=== PATIENT | male | born 1980 | race Caucasian/White ===

== ENCOUNTER 2016-06-18 07:45 | Emergency (ER) | payer MEDICARE, MEDICAID ==
[~2016-06-18 07:45] MED LIST: ADDE30CA PO; AMBI10TA PO; CLEO150C PO; CLON1TAB PO; FLUO40CA PO; GEOD40CA2 PO; GEOD60CA PO; KEFL500C7 PO; KLON2TAB PO; OMEP40CA2 PO; PERC5TAB6 PO; PRAZ2CAP PO; RISATAB3 PO; SERO200T PO; TEST1INJ3 IM; TRAZ150T14 PO; ULTR50TA PO
--- NOTE | 2016-06-18 08:15 | EDDOCDS ---
Physician Documentation [facility] Name: Wily Dyson Age: 35 yrs Sex: Male : 1980 Arrival Date: 06/18/2016 Time: 07:45 Bed I4 / M4 Private MD: Joseph Rodriguez [facility] Disposition: 06/18/16 08:08 Discharged to Home/Self Care. Impression: Unspecified sprain of right shoulder joint. - Condition is Stable. - Discharge Instructions: Shoulder Sprain. - Prescriptions for Hydrocodone- Acetaminophen 5-325 mg Oral Tablet - take 1 tablet by ORAL route every 6 hours As needed MDD: 4 tabs; 16 tablet. - Local Pharmacy Hours, Medication Reconciliation form. - Follow up: Emergency Department; When: As needed; Reason: Worsening of conditions. Follow up: Joseph Rodriguez; When: Call to arrange an appointment; Reason: Wound/Symptom Recheck, Recheck today's complaints, Worsening of conditions, Continuance of care. - Problem is an ongoing problem. - Symptoms are unchanged. Historical: - Allergies: No known drug Allergies; - Home Meds: 1. Adderall XR 30 mg Oral cp24 2 cap once daily 2. Depo-Testosterone 200 mg/mL IM oil weekly on Tuesdays 3. Geodon 60 mg Oral cap 1 cap 2 times per day 4. ibuprofen 800 mg oral tab as needed (Last dose: 06/17/2016) 5. Klonopin 1 mg Oral tab 3 times per day 6. prazosin 2 mg Oral cap 1 cap nightly 7. Prilosec 40 mg Oral cpDR 1 cap once daily 8. Prozac 20 mg Oral cap 1 cap once daily 9. tramadol 50 mg Oral Tb24 2 caps three times a day (Last dose: 06/17/2016) 10. trazodone 150 mg Oral Tb24 1 tab nightly - PMHx: ADHD; Anxiety; Bipolar disorder; gender dysforia; GERD; PTSD; - PSHx: Carpal Tunnel Repair- Right; Tubal ligation; Hysterectomy; bilateral mastectomy; - Social history: Smoking status: Patient uses tobacco products, light tobacco smoker. No barriers to communication noted, The patient speaks fluent Palestinian, Speaks appropriately for age. - Family history: Not pertinent. - : The pt / caregiver states he / she is not on anticoagulants. Home medication list is obtained from [employer] import data. - Exposure Risk Screening:: None identified. Vital Signs: 06/18 07:56 BP 131 / 66; Pulse 72; Resp 18; Temp 98.1(TE); Pulse Ox 97% on R/A; Weight 86.18 kg / ck1 189.99 lbs (R); Height 5 ft. 8 in. (172.72 cm) (R); Pain 7/10; 07:56 Body Mass Index 28.89 (86.18 kg, 172.72 cm) ck1 Signatures: Mechelle OneillRN RN ck1 Chan Chong, PA-C PA-C cc10 The chart was reviewed and I authenticate all verbal orders and agree with the evaluation and treatment provided.Corrections: (The following items were deleted from the chart) 08: 07:55 PSHx: removal of breasts; ck1 ck1 MTDD
--- NOTE | 2016-06-18 08:15 | EDDOCDS ---
Nurse's Notes [facility] Name: Wily Dyson Age: 35 yrs Sex: Male : 1980 Arrival Date: 06/18/2016 Time: 07:45 Bed I4 / M4 Private MD: Joseph Rodriguez NCFM Diagnosis: Unspecified sprain of right shoulder joint Presentation: 06/18 07:52 Presenting complaint: Patient states: worsening right shoulder pain for a week. No ck1 known injury, "possibly from shoveling". Adult Sepsis Screening: The patient does not have new or worsening altered mentation. Patient's respiratory rate is less than 22. Systolic blood pressure is greater than 100. Patient has a qSOFA score of 0- Negative Sepsis Screen. Suicide/Homicide risk assessment- the patient denies having any suicidal and/or homicidal ideations and does not present with any other emotional, behavioral or mental health complaints. Status: Patient is not a manager of allied health services or dependent. Transition of care: patient was not received from another setting of care. 07:52 Acuity: YAJAIRA Level 4 ck1 07:52 Method Of Arrival: Walkin/Carried/Asstd ck1 Triage Assessment: 07:56 General: Appears in no apparent distress, comfortable, Behavior is appropriate for age, ck1 cooperative. Pain: Location: right shoulder Pain currently is 7 out of 10 on a pain scale. HIV screening NA for this visit Offered previously. Derm: No deficits noted. Musculoskeletal: Circulation, motion, and sensation intact Range of motion intact in all extremities. Historical: - Allergies: No known drug Allergies; - Home Meds: 1. Adderall XR 30 mg Oral cp24 2 cap once daily 2. Depo-Testosterone 200 mg/mL IM oil weekly on Tuesdays 3. Geodon 60 mg Oral cap 1 cap 2 times per day 4. ibuprofen 800 mg oral tab as needed (Last dose: 06/17/2016) 5. Klonopin 1 mg Oral tab 3 times per day 6. prazosin 2 mg Oral cap 1 cap nightly 7. Prilosec 40 mg Oral cpDR 1 cap once daily 8. Prozac 20 mg Oral cap 1 cap once daily 9. tramadol 50 mg Oral Tb24 2 caps three times a day (Last dose: 06/17/2016) 10. trazodone 150 mg Oral Tb24 1 tab nightly - PMHx: ADHD; Anxiety; Bipolar disorder; gender dysforia; GERD; PTSD; - PSHx: Carpal Tunnel Repair- Right; Tubal ligation; Hysterectomy; bilateral mastectomy; - Social history: Smoking status: Patient uses tobacco products, light tobacco smoker. No barriers to communication noted, The patient speaks fluent Egyptian, Speaks appropriately for age. - Family history: Not pertinent. - : The pt / caregiver states he / she is not on anticoagulants. Home medication list is obtained from [employer] import data. - Exposure Risk Screening:: None identified. Screenin:10 Screening information is obtained from the patient. Fall risk: No risks identified. ck1 Assistance ADL's: requires no assistance with activities of daily living. Abuse/DV Screen: The patient / caregiver reports he/she is: not in a situation that causes fear, pain or injury. Nutritional screening: No deficits noted. Advance Directives: Currently, there is no health care proxy. home support is adequate. Assessment: 08:10 General: Appears in no apparent distress, comfortable, Behavior is appropriate for age, ck1 cooperative. Pain: Location: right shoulder Pain currently is 7 out of 10 on a pain scale. Neurological: No deficits noted. Derm: Skin is intact, is healthy with good turgor, Skin is pink, warm & dry. Musculoskeletal: Circulation, motion, and sensation intact Range of motion intact in all extremities. Vital Signs: 07:56 BP 131 / 66; Pulse 72; Resp 18; Temp 98.1(TE); Pulse Ox 97% on R/A; Weight 86.18 kg ck1 (R); Height 5 ft. 8 in. (172.72 cm) (R); Pain 7/10; 07:56 Body Mass Index 28.89 (86.18 kg, 172.72 cm) ck1 Vitals: 07:56 Log In Time: June 18, 2016 at 07:40. ck1 ED Course: 07:46 Patient visited by Mahad Cortes. mm15 07:46 Joseph Rodriguez is Private Physician. mm15 07:46 Patient moved to Waiting mm15 07:53 Triage Initiated ck1 07:57 Patient moved to I4 / M4 ck1 08:02 Chan Ch[facility] cc10 08:02 Cira Ulloa MD is Attending Physician. cc10 08:02 Patient visited by Chan Chong PA-C. cc10 08:02 Patient visited by Chan Chong PA-C. cc10 08:08 Joseph Rodriguez is Referral Physician. cc10 08:10 The patient / caregiver is instructed regarding the plan of care and ED course. ck1 08:10 No IV's were initiated during this patient's visit. No procedures done that require ck1 assistance. Order Results: There are currently no results for this order. Outcome: 08:08 Discharge ordered by Provider. cc10 08:10 Discharge Assessment: Patient awake, alert and oriented x 3. No cognitive and/or ck1 functional deficits noted. Patient verbalized understanding of disposition instructions. patient administered narcotics - no. The following High Risk Discharge criteria are identified: None. Discharged to home ambulatory. Condition: stable. Discharge instructions given to patient, Instructed on discharge instructions, follow up and referral plans. medication usage, Demonstrated understanding of instructions, medications, Pt was receptive of discharge instructions/ teaching. No special radiology studies were completed. Property :Personal belongings accompany Pt. 08:14 Prescriptions given X 1. ck1 08:14 Patient left the ED. ck1 Signatures: Mechelle Oneill,RN RN ck1 Mahad Cortes mm15 Chan Chong PA-C PA-C cc10 Corrections: (The following items were deleted from the chart) 08:08 07:55 PSHx: removal of breasts; ck1 ck1 MTDD
--- NOTE | 2016-06-20 09:15 | EDDOCDS ---
Physician Documentation [facility] Name: Wily Dyson Age: 35 yrs Sex: Male : 1980 Arrival Date: 06/18/2016 Time: 07:45 Bed I4 / M4 Private MD: Joseph Rodriguez [facility] Disposition: 06/18/16 08:08 Discharged to Home/Self Care. Impression: Unspecified sprain of right shoulder joint. - Condition is Stable. - Discharge Instructions: Shoulder Sprain. - Prescriptions for Hydrocodone- Acetaminophen 5-325 mg Oral Tablet - take 1 tablet by ORAL route every 6 hours As needed MDD: 4 tabs; 16 tablet. - Local Pharmacy Hours, Medication Reconciliation form. - Follow up: Emergency Department; When: As needed; Reason: Worsening of conditions. Follow up: Joseph Rodriguez; When: Call to arrange an appointment; Reason: Wound/Symptom Recheck, Recheck today's complaints, Worsening of conditions, Continuance of care. - Problem is an ongoing problem. - Symptoms are unchanged. Historical: - Allergies: No known drug Allergies; - Home Meds: 1. Adderall XR 30 mg Oral cp24 2 cap once daily 2. Depo-Testosterone 200 mg/mL IM oil weekly on Tuesdays 3. Geodon 60 mg Oral cap 1 cap 2 times per day 4. ibuprofen 800 mg oral tab as needed (Last dose: 06/17/2016) 5. Klonopin 1 mg Oral tab 3 times per day 6. prazosin 2 mg Oral cap 1 cap nightly 7. Prilosec 40 mg Oral cpDR 1 cap once daily 8. Prozac 20 mg Oral cap 1 cap once daily 9. tramadol 50 mg Oral Tb24 2 caps three times a day (Last dose: 06/17/2016) 10. trazodone 150 mg Oral Tb24 1 tab nightly - PMHx: ADHD; Anxiety; Bipolar disorder; gender dysforia; GERD; PTSD; - PSHx: Carpal Tunnel Repair- Right; Tubal ligation; Hysterectomy; bilateral mastectomy; - Social history: Smoking status: Patient uses tobacco products, light tobacco smoker. No barriers to communication noted, The patient speaks fluent Guamanian, Speaks appropriately for age. - Family history: Not pertinent. - : The pt / caregiver states he / she is not on anticoagulants. Home medication list is obtained from [employer] import data. - Exposure Risk Screening:: None identified. Vital Signs: 06/18 07:56 BP 131 / 66; Pulse 72; Resp 18; Temp 98.1(TE); Pulse Ox 97% on R/A; Weight 86.18 kg / ck1 189.99 lbs (R); Height 5 ft. 8 in. (172.72 cm) (R); Pain 7/10; 07:56 Body Mass Index 28.89 (86.18 kg, 172.72 cm) ck1 MDM: 08:21 [facility] Payment Agreement was scanned into [employer] and attached to record. lg 14:01 T-Sheet-- Draft Copy was scanned into [employer] and attached to record. gb Signatures: Rabia Martínez, Reg Reg gb Jacqui Raymond, Reg Reg lg Mechelle OneillRN RN ck1 Chan Chong, PAAnoopC PAAnoopC cc10 The chart was reviewed and I authenticate all verbal orders and agree with the evaluation and treatment provided.Corrections: (The following items were deleted from the chart) 08: 07:55 PSHx: removal of breasts; ck1 ck1 Attachments: 08:21 [facility] Payment Agreement lg 14:01 T-Sheet-- Draft Copy gb Chart Complete MTDD
--- NOTE | 2016-06-20 09:15 | EDDOCDS ---
Physician Documentation [facility] Name: Wily Dyson Age: 35 yrs Sex: Male : 1980 Arrival Date: 06/18/2016 Time: 07:45 Bed I4 / M4 Private MD: Joseph Rodriguez [facility] Disposition: 06/18/16 08:08 Discharged to Home/Self Care. Impression: Unspecified sprain of right shoulder joint. - Condition is Stable. - Discharge Instructions: Shoulder Sprain. - Prescriptions for Hydrocodone- Acetaminophen 5-325 mg Oral Tablet - take 1 tablet by ORAL route every 6 hours As needed MDD: 4 tabs; 16 tablet. - Local Pharmacy Hours, Medication Reconciliation form. - Follow up: Emergency Department; When: As needed; Reason: Worsening of conditions. Follow up: Jsoeph Rodriguez; When: Call to arrange an appointment; Reason: Wound/Symptom Recheck, Recheck today's complaints, Worsening of conditions, Continuance of care. - Problem is an ongoing problem. - Symptoms are unchanged. Historical: - Allergies: No known drug Allergies; - Home Meds: 1. Adderall XR 30 mg Oral cp24 2 cap once daily 2. Depo-Testosterone 200 mg/mL IM oil weekly on Tuesdays 3. Geodon 60 mg Oral cap 1 cap 2 times per day 4. ibuprofen 800 mg oral tab as needed (Last dose: 06/17/2016) 5. Klonopin 1 mg Oral tab 3 times per day 6. prazosin 2 mg Oral cap 1 cap nightly 7. Prilosec 40 mg Oral cpDR 1 cap once daily 8. Prozac 20 mg Oral cap 1 cap once daily 9. tramadol 50 mg Oral Tb24 2 caps three times a day (Last dose: 06/17/2016) 10. trazodone 150 mg Oral Tb24 1 tab nightly - PMHx: ADHD; Anxiety; Bipolar disorder; gender dysforia; GERD; PTSD; - PSHx: Carpal Tunnel Repair- Right; Tubal ligation; Hysterectomy; bilateral mastectomy; - Social history: Smoking status: Patient uses tobacco products, light tobacco smoker. No barriers to communication noted, The patient speaks fluent Prydeinig, Speaks appropriately for age. - Family history: Not pertinent. - : The pt / caregiver states he / she is not on anticoagulants. Home medication list is obtained from [employer] import data. - Exposure Risk Screening:: None identified. Vital Signs: 06/18 07:56 BP 131 / 66; Pulse 72; Resp 18; Temp 98.1(TE); Pulse Ox 97% on R/A; Weight 86.18 kg / ck1 189.99 lbs (R); Height 5 ft. 8 in. (172.72 cm) (R); Pain 7/10; 07:56 Body Mass Index 28.89 (86.18 kg, 172.72 cm) ck1 MDM: 08:21 [facility] Payment Agreement was scanned into [employer] and attached to record. lg 14:01 T-Sheet-- Draft Copy was scanned into [employer] and attached to record. gb Signatures: Rabia Martínez, Reg Reg gb Jacqui Raymond, Reg Reg lg Mechelle OneillRN RN ck1 Chan Chong, PAAnoopC PAAnoopC cc10 The chart was reviewed and I authenticate all verbal orders and agree with the evaluation and treatment provided.Corrections: (The following items were deleted from the chart) 08: 07:55 PSHx: removal of breasts; ck1 ck1 Attachments: 08:21 [facility] [place] Agreement lg 14:01 T-Sheet-- Draft Copy gb Chart Complete MTDD
--- NOTE | 2016-06-20 09:15 | EDDOCDS ---
Nurse's Notes [facility] Name: Wily Dyson Age: 35 yrs Sex: Male : 1980 Arrival Date: 06/18/2016 Time: 07:45 Bed I4 / M4 Private MD: Joseph Rodriguez NCFM Diagnosis: Unspecified sprain of right shoulder joint Presentation: 06/18 07:52 Presenting complaint: Patient states: worsening right shoulder pain for a week. No ck1 known injury, "possibly from shoveling". Adult Sepsis Screening: The patient does not have new or worsening altered mentation. Patient's respiratory rate is less than 22. Systolic blood pressure is greater than 100. Patient has a qSOFA score of 0- Negative Sepsis Screen. Suicide/Homicide risk assessment- the patient denies having any suicidal and/or homicidal ideations and does not present with any other emotional, behavioral or mental health complaints. Status: Patient is not a gas refrigerator servicer or dependent. Transition of care: patient was not received from another setting of care. 07:52 Acuity: YAJAIRA Level 4 ck1 07:52 Method Of Arrival: Walkin/Carried/Asstd ck1 Triage Assessment: 07:56 General: Appears in no apparent distress, comfortable, Behavior is appropriate for age, ck1 cooperative. Pain: Location: right shoulder Pain currently is 7 out of 10 on a pain scale. HIV screening NA for this visit Offered previously. Derm: No deficits noted. Musculoskeletal: Circulation, motion, and sensation intact Range of motion intact in all extremities. Historical: - Allergies: No known drug Allergies; - Home Meds: 1. Adderall XR 30 mg Oral cp24 2 cap once daily 2. Depo-Testosterone 200 mg/mL IM oil weekly on Tuesdays 3. Geodon 60 mg Oral cap 1 cap 2 times per day 4. ibuprofen 800 mg oral tab as needed (Last dose: 06/17/2016) 5. Klonopin 1 mg Oral tab 3 times per day 6. prazosin 2 mg Oral cap 1 cap nightly 7. Prilosec 40 mg Oral cpDR 1 cap once daily 8. Prozac 20 mg Oral cap 1 cap once daily 9. tramadol 50 mg Oral Tb24 2 caps three times a day (Last dose: 06/17/2016) 10. trazodone 150 mg Oral Tb24 1 tab nightly - PMHx: ADHD; Anxiety; Bipolar disorder; gender dysforia; GERD; PTSD; - PSHx: Carpal Tunnel Repair- Right; Tubal ligation; Hysterectomy; bilateral mastectomy; - Social history: Smoking status: Patient uses tobacco products, light tobacco smoker. No barriers to communication noted, The patient speaks fluent Salvadorean, Speaks appropriately for age. - Family history: Not pertinent. - : The pt / caregiver states he / she is not on anticoagulants. Home medication list is obtained from [employer] import data. - Exposure Risk Screening:: None identified. Screenin:10 Screening information is obtained from the patient. Fall risk: No risks identified. ck1 Assistance ADL's: requires no assistance with activities of daily living. Abuse/DV Screen: The patient / caregiver reports he/she is: not in a situation that causes fear, pain or injury. Nutritional screening: No deficits noted. Advance Directives: Currently, there is no health care proxy. home support is adequate. Assessment: 08:10 General: Appears in no apparent distress, comfortable, Behavior is appropriate for age, ck1 cooperative. Pain: Location: right shoulder Pain currently is 7 out of 10 on a pain scale. Neurological: No deficits noted. Derm: Skin is intact, is healthy with good turgor, Skin is pink, warm & dry. Musculoskeletal: Circulation, motion, and sensation intact Range of motion intact in all extremities. Vital Signs: 07:56 BP 131 / 66; Pulse 72; Resp 18; Temp 98.1(TE); Pulse Ox 97% on R/A; Weight 86.18 kg ck1 (R); Height 5 ft. 8 in. (172.72 cm) (R); Pain 7/10; 07:56 Body Mass Index 28.89 (86.18 kg, 172.72 cm) ck1 Vitals: 07:56 Log In Time: June 18, 2016 at 07:40. ck1 ED Course: 07:46 Patient visited by Mahad Cortes. mm15 07:46 Joseph Rodriguez is Private Physician. mm15 07:46 Patient moved to Waiting mm15 07:53 Triage Initiated ck1 07:57 Patient moved to I4 / M4 ck1 08:02 [facility] cc10 08:02 Cira Ulloa MD is Attending Physician. cc10 08:02 Patient visited by Chan Chong PA-C. cc10 08:02 Patient visited by Chan Chong PA-C. cc10 08:08 Joseph Rodriguez is Referral Physician. cc10 08:10 The patient / caregiver is instructed regarding the plan of care and ED course. ck1 08:10 No IV's were initiated during this patient's visit. No procedures done that require ck1 assistance. 08:21 [facility] Payment Agreement was scanned into [employer] and attached to record. lg 14:01 T-Sheet-- Draft Copy was scanned into [employer] and attached to record. gb Order Results: There are currently no results for this order. Outcome: 08:08 Discharge ordered by Provider. cc10 08:10 Discharge Assessment: Patient awake, alert and oriented x 3. No cognitive and/or ck1 functional deficits noted. Patient verbalized understanding of disposition instructions. patient administered narcotics - no. The following High Risk Discharge criteria are identified: None. Discharged to home ambulatory. Condition: stable. Discharge instructions given to patient, Instructed on discharge instructions, follow up and referral plans. medication usage, Demonstrated understanding of instructions, medications, Pt was receptive of discharge instructions/ teaching. No special radiology studies were completed. Property :Personal belongings accompany Pt. 08:14 Prescriptions given X 1. ck1 08:14 Patient left the ED. ck1 Signatures: Rabia Martínez, Reg Reg gb Jacqui Raymond, Reg Reg lg Mechelle Oneill RN RN ck1 Mahad Cortes mm15 Chan Chong PA-C PA-C cc10 Corrections: (The following items were deleted from the chart) 08:08 07:55 PSHx: removal of breasts; ck1 ck1 Chart Complete MTDD
== END 2016-06-18 08:14 | disposition home or self-care (01) ==
LOC: M ED 07:45
DX: S43.421A Sprain of right rotator cuff capsule, initial encounter (principal); X50.9XXA Other and unspecified overexertion or strenuous movements or postures, initial encounter; Y92.019 Unspecified place in single-family (private) house as the place of occurrence of the external cause; Y93.H1 Activity, digging, shoveling and raking; Y99.9 Unspecified external cause status; F90.9 Attention-deficit hyperactivity disorder, unspecified type; F41.9 Anxiety disorder, unspecified; F31.9 Bipolar disorder, unspecified; K21.9 Gastro-esophageal reflux disease without esophagitis; F43.10 Post-traumatic stress disorder, unspecified; F64.9 Gender identity disorder, unspecified; Z72.0 Tobacco use; Z79.899 Other long term (current) drug therapy; Z79.3 Long term (current) use of hormonal contraceptives

== ENCOUNTER → 2016-07-15 | Outpatient (REF) | payer MEDICARE, MEDICAID ==
[2016-07-15 12:06] LABS: ALBUMIN 3.8 GM/DL (3.2-5.2); ALBUMIN/GLOBULIN RATIO 1.27 (1.00-1.93); ALKALINE PHOSPHATASE 58 U/L (45-117); ALT/SGPT 29 U/L (12-78); ANION GAP 8 MEQ/L (8-16); AST/SGOT 25 U/L (15-37); BILIRUBIN,TOTAL 0.8 MG/DL (0.2-1.0); BLOOD UREA NITROGEN 15 MG/DL (7-18); CALCIUM LEVEL 8.8 MG/DL (8.5-10.1); CARBON DIOXIDE LEVEL 30 MEQ/L (21-32); CHLORIDE LEVEL 104 MEQ/L (98-107); CHOLESTEROL LEVEL 194 MG/DL (<200); GLOMERULAR FILTRATION RATE > 60.0 (>60); GLUCOSE, FASTING 90 MG/DL (70-105); SODIUM LEVEL 142 MEQ/L (136-145); TOTAL PROTEIN 6.8 GM/DL (6.4-8.2); TRIGLYCERIDES LEVEL 440 MG/DL (<150)
[2016-07-15 12:30] LABS: BASO % 0.3 % (0.0-1.0); EOS # 0.1 K/mm3 (0.0-0.50); EOS % 2.1 % (0.0-3.0); LARGE UNSTAINED CELL # 0.1 K/mm3 (0.0-0.4); LARGE UNSTAINED CELL % 1.4 % (0.0-4.0); LYMPH # 2.2 K/mm3 (1.5-4.5); LYMPH % 32.7 % (24.0-44.0); MEAN CORPUSCULAR HEMOGLOBIN 31.7 pg (27.0-33.0); MEAN CORPUSCULAR HGB CONC 33.7 g/dl (32.0-36.5); MEAN CORPUSCULAR VOLUME 94.2 fl (80.0-96.0); MONO # 0.3 K/mm3 (0.0-0.8); MONO % 5.1 % (0.0-5.0); NEUTROPHILS # 3.9 K/mm3 (1.8-7.7); NEUTROPHILS % 58.4 % (36.0-66.0); PLATELET COUNT, AUTOMATED 202 k/mm3 (150-450); RED CELL DISTRIBUTION WIDTH 13.8 % (11.5-14.5); WHITE BLOOD COUNT 6.6 K/mm3 (4.0-10.0)
== END ==
LOC: M LABDRAW1 11:28
PROVIDERS: ATTEND Internal Medicine Endocrinology, Diabetes & Metabolism
DX: F64.0 Transsexualism (principal)

== ENCOUNTER → 2016-08-21 | Outpatient (CLI) | payer MEDICARE, MEDICAID ==
[2016-08-21 16:59] LABS: BASO % 0.4 % (0.0-1.0); EOS # 0.1 K/mm3 (0.0-0.50); EOS % 1.5 % (0.0-3.0); LARGE UNSTAINED CELL # 0.2 K/mm3 (0.0-0.4); LARGE UNSTAINED CELL % 2.5 % (0.0-4.0); LYMPH # 2.3 K/mm3 (1.5-4.5); LYMPH % 32.3 % (24.0-44.0); MEAN CORPUSCULAR HEMOGLOBIN 31.7 pg (27.0-33.0); MEAN CORPUSCULAR HGB CONC 33.9 g/dl (32.0-36.5); MEAN CORPUSCULAR VOLUME 93.5 fl (80.0-96.0); MONO # 0.5 K/mm3 (0.0-0.8); MONO % 6.9 % (0.0-5.0); NEUTROPHILS # 4.1 K/mm3 (1.8-7.7); NEUTROPHILS % 56.5 % (36.0-66.0); PLATELET COUNT, AUTOMATED 237 k/mm3 (150-450); RED CELL DISTRIBUTION WIDTH 13.8 % (11.5-14.5); WHITE BLOOD COUNT 7.2 K/mm3 (4.0-10.0)
[2016-08-21 17:13] LABS: ALBUMIN 4.2 GM/DL (3.2-5.2); ALBUMIN/GLOBULIN RATIO 1.27 (1.00-1.93); ALKALINE PHOSPHATASE 54 U/L (45-117); ALT/SGPT 38 U/L (12-78); ANION GAP 8 MEQ/L (8-16); AST/SGOT 41 U/L (15-37); BILIRUBIN,TOTAL 0.7 MG/DL (0.2-1.0); BLOOD UREA NITROGEN 11 MG/DL (7-18); CALCIUM LEVEL 9.1 MG/DL (8.5-10.1); CARBON DIOXIDE LEVEL 31 MEQ/L (21-32); CHLORIDE LEVEL 102 MEQ/L (98-107); CHOLESTEROL LEVEL 192 MG/DL (<200); CREATININE FOR GFR 1.06 MG/DL (0.70-1.30); GLOMERULAR FILTRATION RATE > 60.0 (>60); GLUCOSE, FASTING 80 MG/DL (70-105); POTASSIUM SERUM 3.8 MEQ/L (3.5-5.1); SODIUM LEVEL 141 MEQ/L (136-145); TOTAL PROTEIN 7.5 GM/DL (6.4-8.2); TRIGLYCERIDES LEVEL 174 MG/DL (<150)
== END ==
LOC: M LAB 16:26
PROVIDERS: ATTEND Internal Medicine Endocrinology, Diabetes & Metabolism
DX: F64.0 Transsexualism (principal)

== ENCOUNTER 2016-09-26 11:28 | Emergency (ER) | payer MEDICAID, MEDICARE ==
[~2016-09-26] VITALS: Ht 172.7 cm; Wt 90.7 kg
[2016-09-26] MEDS ORDERED: diphenhydrAMINE INJ 50MG/ML VIAL (J1200) IV STA (11:51)
[2016-09-26] MEDS ORDERED: NS 1,000 ML IV ONE (12:00)
[2016-09-26 12:19] LABS: BASO % 0.5 % (0.0-1.0); EOS # 0.1 K/mm3 (0.0-0.50); EOS % 2.2 % (0.0-3.0); LARGE UNSTAINED CELL # 0.1 K/mm3 (0.0-0.4); LARGE UNSTAINED CELL % 1.6 % (0.0-4.0); LYMPH # 2.1 K/mm3 (1.5-4.5); LYMPH % 33.6 % (24.0-44.0); MEAN CORPUSCULAR HEMOGLOBIN 32.1 pg (27.0-33.0); MEAN CORPUSCULAR HGB CONC 35.1 g/dl (32.0-36.5); MEAN CORPUSCULAR VOLUME 91.5 fl (80.0-96.0); MONO # 0.5 K/mm3 (0.0-0.8); MONO % 8.7 % (0.0-5.0); NEUTROPHILS # 3.2 K/mm3 (1.8-7.7); NEUTROPHILS % 53.5 % (36.0-66.0); PLATELET COUNT, AUTOMATED 237 k/mm3 (150-450); RED CELL DISTRIBUTION WIDTH 13.6 % (11.5-14.5)
[2016-09-26] MEDS ORDERED: LORazepam 2 MG/ML VIAL (J2060) IV STA (12:46)
[2016-09-26 12:53] LABS: ANION GAP 14 MEQ/L (8-16); BLOOD UREA NITROGEN 11 MG/DL (7-18); CALCIUM LEVEL 9.2 MG/DL (8.5-10.1); CARBON DIOXIDE LEVEL 23 MEQ/L (21-32); CHLORIDE LEVEL 107 MEQ/L (98-107); CREATININE FOR GFR 0.92 MG/DL (0.70-1.30); GLOMERULAR FILTRATION RATE > 60.0 (>60); GLUCOSE, FASTING 91 MG/DL (70-105); POTASSIUM SERUM 3.6 MEQ/L (3.5-5.1); SODIUM LEVEL 144 MEQ/L (136-145)
[2016-09-26 13:08] VITALS: BP 113/66
== END 2016-09-26 13:55 | disposition home or self-care (01) ==
LOC: M ED 12:05
DX: F41.9 Anxiety disorder, unspecified (principal); F17.210 Nicotine dependence, cigarettes, uncomplicated; J30.9 Allergic rhinitis, unspecified; Z79.899 Other long term (current) drug therapy; K21.9 Gastro-esophageal reflux disease without esophagitis; F43.10 Post-traumatic stress disorder, unspecified; F90.9 Attention-deficit hyperactivity disorder, unspecified type; F31.9 Bipolar disorder, unspecified
CPT/HCPCS: 36415; 80048; 83735; 85025; 96374; 96375; 99282; J1200; J2060

== ENCOUNTER → 2016-10-03 | Outpatient (CLI) | payer MEDICARE | LOC: M WUC 09:06 | PROVIDERS: ATTEND Physician Assistant | DX: M79.671 Pain in right foot (principal) ==

== ENCOUNTER → 2016-10-15 | Outpatient (REF) | payer BC | LOC: M LAB REF 12:33 | PROVIDERS: ATTEND Physician Assistant | DX: J02.9 Acute pharyngitis, unspecified (principal) ==

== ENCOUNTER 2016-10-24 12:51 | Emergency (ER) | payer BC, MEDICARE ==
[~2016-10-24] VITALS: Ht 172.7 cm; Wt 92.1 kg
[2016-10-24] MEDS ORDERED: TRAM50TA2 PO (13:01)
[2016-10-24] MEDS ORDERED: ALLO100T PO (13:01)
[2016-10-24] MEDS ORDERED: NS 1,000 ML IV ONE (13:30)
[2016-10-24] MEDS ORDERED: ONDANSETRON 4MG/2ML VIAL (J2405) IV ONE ×2 (13:30→15:45)
--- NOTE | 2016-10-24 13:37 | REP ---
Clinical: Chest pain . Comparison: 12/03/2013 . Findings: The mediastinum and cardiac silhouette are stable and within normal limits for portable technique. The lung becerril are clear without acute consolidation, effusion, or pneumothorax. Skeletal structures are intact. Impression: Normal portable chest x-ray Signed by Teo Aleman MD 10/24/2016 01:28 P
[2016-10-24 14:19] LABS: BASO % 0.5 % (0.0-1.0); EOS # 0.1 K/mm3 (0.0-0.50); EOS % 1.1 % (0.0-3.0); LARGE UNSTAINED CELL # 0.1 K/mm3 (0.0-0.4); LARGE UNSTAINED CELL % 1.8 % (0.0-4.0); LYMPH # 1.5 K/mm3 (1.5-4.5); LYMPH % 21.1 % (24.0-44.0); MEAN CORPUSCULAR HEMOGLOBIN 31.3 pg (27.0-33.0); MEAN CORPUSCULAR HGB CONC 33.3 g/dl (32.0-36.5); MONO # 0.5 K/mm3 (0.0-0.8); MONO % 6.5 % (0.0-5.0); NEUTROPHILS # 4.9 K/mm3 (1.8-7.7); NEUTROPHILS % 68.9 % (36.0-66.0); PLATELET COUNT, AUTOMATED 249 k/mm3 (150-450); RED CELL DISTRIBUTION WIDTH 13.3 % (11.5-14.5)
[2016-10-24 14:38] LABS: ALBUMIN 3.3 GM/DL (3.2-5.2); ALBUMIN/GLOBULIN RATIO 1.06 (1.00-1.93); ALKALINE PHOSPHATASE 63 U/L (45-117); ALT/SGPT 26 U/L (12-78); ANION GAP 7 MEQ/L (8-16); AST/SGOT 21 U/L (15-37); BILIRUBIN,DIRECT 0.2 MG/DL (0.0-0.2); BILIRUBIN,TOTAL 0.9 MG/DL (0.2-1.0); BLOOD UREA NITROGEN 9 MG/DL (7-18); CALCIUM LEVEL 8.7 MG/DL (8.5-10.1); CARBON DIOXIDE LEVEL 28 MEQ/L (21-32); CHLORIDE LEVEL 108 MEQ/L (98-107); FREE T4 0.85 NG/DL (0.76-1.46); GLOMERULAR FILTRATION RATE > 60.0 (>60); GLUCOSE, FASTING 87 MG/DL (70-105); POTASSIUM SERUM 3.7 MEQ/L (3.5-5.1); SODIUM LEVEL 143 MEQ/L (136-145); TOTAL PROTEIN 6.4 GM/DL (6.4-8.2)
[2016-10-24] MEDS ORDERED: MORPHINE 4 MG/ML 1ML SYRINGE IV ONE (15:45)
[2016-10-24] MEDS ORDERED: ISOVUE-370 76% 100ML VIAL (Q9967) As Ordered ONE (15:49)
--- NOTE | 2016-10-24 16:21 | REP ---
CT pulmonary angiogram: With IV contrast. History: Chest pain. Question pulmonary embolism. Comparison studies: No comparison study. Contrast dose: 75 cc's of Isovue [address] technique: Helical scanning is acquired and overlapping 1.5 mm and contiguous 3 mm axial images are reformatted. In addition, a 3-D work station is deployed to generate thick slab maximum intensity projection images in sagittal and coronal imaging projections. CT pulmonary angiographic findings: There is good opacification of the pulmonary arterial tree and there is no CT evidence of pulmonary embolism. The thoracic aorta enhances homogeneously and is normal in caliber and course. Maximal intensity projection images show no vessel cutoff or filling defect to suggest a pulmonary arterial thrombus. There is no evidence of pleural or pericardial effusion. No hilar or mediastinal mass or adenopathy is observed. No adrenal lesion is seen. The visualized upper abdominal structures are unremarkable. The lung windows show no evidence of pulmonary mass or significant nodule. No infiltrate is seen. No bony destructive lesion is seen. Impression: Negative CT pulmonary angiogram. No CT evidence of pulmonary embolism. Signed by Travis Rosas MD 10/24/2016 04:12 P
[2016-10-24] MEDS ORDERED: LORazepam 2 MG/ML VIAL (J2060) IV STA (16:38)
[2016-10-24] MEDS ORDERED: LORazepam 2 MG/ML VIAL (J2060) As Ordered ONE (16:40)
[2016-10-24] MEDS ORDERED: GEOD20CA14 PO (18:28)
[2016-10-24 18:35] VITALS: BP 140/75
--- NOTE | 2016-10-24 19:26 | ECGEPIP ---
Stationary ECG Study [facility] - ED Test Date: 2016-10-24 Pat Name: AVELINA DODGE Department: Room: - Gender: M Rn Labor And Delivery: KACIE : 1980 Requested By: TAVON Brannon Order Number: [id number] Reading MD: Cipriano Brito Measurements Intervals [place] Rate: 80 P: 8 WI: 120 QRS: 40 QRSD: 109 T: 20 QT: 363 QTc: 421 Interpretive Statements SINUS RHYTHM INC. RBBB NO PRIORS Electronically Signed On 10-24-2016 19:26:23 EDT by Cipriano Brito
== END 2016-10-24 18:36 | disposition home or self-care (01) ==
LOC: EDBD 12:51 → M ED 14:08
DX: R07.9 Chest pain, unspecified (principal); T43.296A Underdosing of other antidepressants, initial encounter; R11.0 Nausea; R19.7 Diarrhea, unspecified; F90.0 Attention-deficit hyperactivity disorder, predominantly inattentive type; F32.9 Major depressive disorder, single episode, unspecified; F41.0 Panic disorder [episodic paroxysmal anxiety]; F60.9 Personality disorder, unspecified; J30.2 Other seasonal allergic rhinitis; Z79.899 Other long term (current) drug therapy
CPT/HCPCS: 71010; 71275; 80048; 80076; 82550; 82553; 83690; 83880; 84439; 84443; 85025; 87040; 93005; 93041; 94760; 96361; 96374; 96375; 96376; 99285; J2060; J2405; Q9967

== ENCOUNTER → 2016-11-07 | Outpatient (CLI) | payer BC ==
[~2016-11-07] MED LIST changes: +ALLO100T PO; +GEOD20CA14 PO; +TRAM50TA2 PO
== END ==
LOC: M LAB 07:53
PROVIDERS: ATTEND Nurse Practitioner Family
DX: M79.674 Pain in right toe(s) (principal)

== ENCOUNTER → 2016-11-09 | Outpatient (CLI) | payer BC ==
--- NOTE | 2016-11-09 11:41 | REP ---
Chest two views HISTORY: Rhonchi Comparison: 10/24/2016 The lungs are clear. The heart is normal in size. The pulmonary vasculature is normal in appearance. The bony structure is intact. IMPRESSION: No acute disease. Signed by Joseph Thorne MD 11/09/2016 11:33 A
== END ==
LOC: M LRY 11:15
PROVIDERS: ATTEND Nurse Practitioner Family
DX: R09.89 Other specified symptoms and signs involving the circulatory and respiratory systems (principal)

== ENCOUNTER → 2017-01-12 | Outpatient (CLI) | payer BC ==
[~2017-01-12] MED LIST changes: -ADDE30CA PO; +ADDE30CA3 PO; +ALBU17IN; +KEFL500C17 PO; -KEFL500C7 PO; +LORA1TAB12; +PERC5TAB12 PO; -PERC5TAB6 PO; -TRAZ150T14 PO; +TRAZ1TAB14 PO; -ULTR50TA PO; +ULTR50TA8 PO
[2017-01-12 14:03] LABS: CHOLESTEROL LEVEL 176 MG/DL (<200); TRIGLYCERIDES LEVEL 446 MG/DL (<150)
== END ==
LOC: M WUC 08:50
PROVIDERS: ATTEND Nurse Practitioner Family
DX: Z13.220 Encounter for screening for lipoid disorders (principal)

== ENCOUNTER → 2017-01-12 | Outpatient (CLI) | payer BC ==
[2017-01-12 13:36] LABS: BASO % 0.7 % (0.0-1.0); EOS # 0.2 K/mm3 (0.0-0.50); EOS % 3.1 % (0.0-3.0); LARGE UNSTAINED CELL # 0.1 K/mm3 (0.0-0.4); LARGE UNSTAINED CELL % 1.4 % (0.0-4.0); LYMPH # 2.7 K/mm3 (1.5-4.5); LYMPH % 35.8 % (24.0-44.0); MEAN CORPUSCULAR HEMOGLOBIN 31.4 pg (27.0-33.0); MEAN CORPUSCULAR VOLUME 92.1 fl (80.0-96.0); MONO # 0.4 K/mm3 (0.0-0.8); MONO % 5.5 % (0.0-5.0); NEUTROPHILS # 3.9 K/mm3 (1.8-7.7); NEUTROPHILS % 53.6 % (36.0-66.0); PLATELET COUNT, AUTOMATED 230 k/mm3 (150-450); RED CELL DISTRIBUTION WIDTH 15.2 % (11.5-14.5); WHITE BLOOD COUNT 7.3 K/mm3 (4.0-10.0)
[2017-01-12 14:02] LABS: ALBUMIN 3.7 GM/DL (3.2-5.2); ALBUMIN/GLOBULIN RATIO 1.32 (1.00-1.93); ALKALINE PHOSPHATASE 62 U/L (45-117); ALT/SGPT 29 U/L (12-78); AST/SGOT 18 U/L (15-37); BILIRUBIN,DIRECT < 0.1 MG/DL (0.0-0.2); BILIRUBIN,TOTAL 0.4 MG/DL (0.2-1.0); TOTAL PROTEIN 6.5 GM/DL (6.4-8.2)
== END ==
LOC: M WUC 08:53
PROVIDERS: ATTEND Internal Medicine Endocrinology, Diabetes & Metabolism
DX: F64.0 Transsexualism (principal); E29.1 Testicular hypofunction

== ENCOUNTER 2017-02-03 00:02 | Emergency (ER) | payer BC ==
[~2017-02-03 00:02] MED LIST changes: -ALBU17IN; -LORA1TAB12
[2017-02-03] MEDS ORDERED: ALBU17IN (00:29)
[2017-02-03] MEDS ORDERED: LORA1TAB12 (00:29)
[2017-02-03] MEDS ORDERED: DERMABOND TOPICAL SKIN ADHESIVE TOP ONE (01:30)
[2017-02-03 01:41] VITALS: BP 145/88
== END 2017-02-03 01:45 | disposition home or self-care (01) ==
LOC: EEVIPCON 00:02 → EDBD 00:02 → M ED 00:02
DX: F43.0 Acute stress reaction (principal); F41.9 Anxiety disorder, unspecified; J45.909 Unspecified asthma, uncomplicated; F17.200 Nicotine dependence, unspecified, uncomplicated; F10.10 Alcohol abuse, uncomplicated; Z79.899 Other long term (current) drug therapy

== ENCOUNTER 2017-05-30 22:11 | Emergency (ER) | payer BC, MEDICARE ==
[~2017-05-30] VITALS: Ht 172.7 cm; Wt 86.4 kg
[~2017-05-30 22:11] MED LIST changes: +ALBU17IN; +LORA1TAB12
[2017-05-30] MEDS ORDERED: GEOD60CA PO (22:26)
[2017-05-30] MEDS ORDERED: TRAZ300T2 PO (22:26)
[2017-05-30 22:55] LABS: MEAN CORPUSCULAR HEMOGLOBIN 30.7 pg (27.0-33.0); MEAN CORPUSCULAR HGB CONC 35.5 g/dl (32.0-36.5); MEAN CORPUSCULAR VOLUME 86.5 fl (80.0-96.0); PLATELET COUNT, AUTOMATED 279 10^3/uL (150-450); RED CELL DISTRIBUTION WIDTH 13.7 % (11.5-14.5); WHITE BLOOD COUNT 10.7 10^3/uL (4.0-10.0)
[2017-05-30 23:15] LABS: METHADONE URINE NEGATIVE (NEGATIVE)
[2017-05-30 23:28] LABS: ALBUMIN/GLOBULIN RATIO 1.08 (1.00-1.93); ALKALINE PHOSPHATASE 67 U/L (45-117); ALT/SGPT 33 U/L (12-78); ANION GAP 11 MEQ/L (8-16); AST/SGOT 32 U/L (7-37); BILIRUBIN,DIRECT 0.1 MG/DL (0.0-0.2); BILIRUBIN,TOTAL 0.7 MG/DL (0.2-1.0); BLOOD UREA NITROGEN 9 MG/DL (7-18); CALCIUM LEVEL 8.5 MG/DL (8.5-10.1); CARBON DIOXIDE LEVEL 25 MEQ/L (21-32); CHLORIDE LEVEL 107 MEQ/L (98-107); CREATININE FOR GFR 0.96 MG/DL (0.70-1.30); GLOMERULAR FILTRATION RATE > 60.0 (>60); GLUCOSE, FASTING 115 MG/DL (70-105); POTASSIUM SERUM 3.3 MEQ/L (3.5-5.1); SODIUM LEVEL 143 MEQ/L (136-145); TOTAL PROTEIN 7.7 GM/DL (6.4-8.2)
[2017-05-31 00:21] VITALS: BP 134/80
== END 2017-05-31 00:29 | disposition home or self-care (01) ==
LOC: M ED 22:11 → EEVIPCON 22:11 → M ED 05-31 00:29
DX: F32.9 Major depressive disorder, single episode, unspecified (principal); F41.1 Generalized anxiety disorder; F10.129 Alcohol abuse with intoxication, unspecified; F43.0 Acute stress reaction; Z87.891 Personal history of nicotine dependence
CPT/HCPCS: 80048; 80076; 80307; 84443; 85027; 99284; G0480

== ENCOUNTER → 2017-07-09 | Outpatient (CLI) | payer BC ==
[2017-07-09 07:33] LABS: BASO # 0.1 10^3/uL (0.0-0.2); BASO % 0.9 % (0.0-1.0); EOS # 0.1 10^3/uL (0.0-0.50); EOS % 1.9 % (0.0-3.0); HEMATOCRIT 43.8 % (42.0-52.0); HEMOGLOBIN 15.7 g/dl (14.0-18.0); IMMATURE GRANULOCYTE % 0.2 % (0-0); LYMPH # 2.4 10^3/uL (1.5-4.5); MEAN CORPUSCULAR HEMOGLOBIN 31.8 pg (27.0-33.0); MEAN CORPUSCULAR HGB CONC 35.8 g/dl (32.0-36.5); MEAN CORPUSCULAR VOLUME 88.8 fl (80.0-96.0); MONO # 0.4 10^3/uL (0.0-0.8); MONO % 6.5 % (0.0-5.0); NEUTROPHILS # 3.3 10^3/uL (1.8-7.7); NEUTROPHILS % 52.5 % (36.0-66.0); PLATELET COUNT, AUTOMATED 288 10^3/uL (150-450); RED BLOOD COUNT 4.93 10^6/uL (4.30-6.10); RED CELL DISTRIBUTION WIDTH 14.5 % (11.5-14.5); WHITE BLOOD COUNT 6.3 10^3/uL (4.0-10.0)
[2017-07-09 07:58] LABS: ALBUMIN 3.8 GM/DL (3.2-5.2); ALBUMIN/GLOBULIN RATIO 1.19 (1.00-1.93); ALKALINE PHOSPHATASE 60 U/L (45-117); ALT/SGPT 33 U/L (12-78); ANION GAP 7 MEQ/L (8-16); AST/SGOT 23 U/L (7-37); BILIRUBIN,TOTAL 0.3 MG/DL (0.2-1.0); BLOOD UREA NITROGEN 9 MG/DL (7-18); CALCIUM LEVEL 8.5 MG/DL (8.5-10.1); CARBON DIOXIDE LEVEL 27 MEQ/L (21-32); CHLORIDE LEVEL 107 MEQ/L (98-107); CHOLESTEROL LEVEL 188 MG/DL (<200); CHOLESTEROL RISK RATIO 3.357 (<5); CREATININE FOR GFR 0.87 MG/DL (0.70-1.30); GLOMERULAR FILTRATION RATE > 60.0 (>60); GLUCOSE, FASTING 111 MG/DL (70-100); HDL CHOLESTEROL 56 MG/DL (>40); LDL CHOLESTEROL 68.2 MG/DL (<100); NON-HDL-C 132 MG/DL; POTASSIUM SERUM 3.7 MEQ/L (3.5-5.1); SODIUM LEVEL 141 MEQ/L (136-145); TRIGLYCERIDES LEVEL 319 MG/DL (<150)
== END ==
LOC: M LAB 06:56
DX: K21.9 Gastro-esophageal reflux disease without esophagitis (principal); E78.1 Pure hyperglyceridemia
CPT/HCPCS: 80053

== ENCOUNTER 2017-10-08 05:00 | Observation (INO) | payer BC ==
[2017-10-08] MEDS: NS 1,000 ML IV (07:00)
[2017-10-08] MEDS: KETOROLAC 30 MG/ML VIAL (J1885) IV (07:00)
[2017-10-08] MEDS: MORPHINE 2 MG/ML 1ML SYRINGE (J2270) IV (07:00)
[2017-10-08 07:18] LABS: BASO # 0.1 10^3/uL (0.0-0.2); EOS # 0.2 10^3/uL (0.0-0.50); EOS % 2.9 % (0.0-3.0); HEMATOCRIT 45.7 % (42.0-52.0); HEMOGLOBIN 16.7 g/dl (13.5-17.5); IMMATURE GRANULOCYTE % 0.2 % (0-3.0); LYMPH % 37.7 % (24.0-44.0); MEAN CORPUSCULAR HEMOGLOBIN 33.6 pg (27.0-33.0); MEAN CORPUSCULAR HGB CONC 36.5 g/dl (32.0-36.5); MONO # 0.5 10^3/uL (0.0-0.8); MONO % 8.7 % (0.0-5.0); NEUTROPHILS # 2.6 10^3/uL (1.8-7.7); NEUTROPHILS % 49.5 % (36.0-66.0); PLATELET COUNT, AUTOMATED 247 10^3/uL (150-450); RED BLOOD COUNT 4.97 10^6/uL (4.30-6.10); RED CELL DISTRIBUTION WIDTH 12.6 % (11.5-14.5); WHITE BLOOD COUNT 5.2 10^3/uL (4.0-10.0)
[2017-10-08 07:20] LABS: ALBUMIN 4.2 GM/DL (3.2-5.2); ALBUMIN/GLOBULIN RATIO 1.24 (1.00-1.93); ALKALINE PHOSPHATASE 55 U/L (45-117); ALT/SGPT 31 U/L (12-78); ANION GAP 7 MEQ/L (8-16); AST/SGOT 24 U/L (7-37); BILIRUBIN,DIRECT 0.1 MG/DL (0.0-0.2); BILIRUBIN,TOTAL 0.4 MG/DL (0.2-1.0); BLOOD UREA NITROGEN 9 MG/DL (7-18); CALCIUM LEVEL 9.2 MG/DL (8.5-10.1); CARBON DIOXIDE LEVEL 27 MEQ/L (21-32); CHLORIDE LEVEL 108 MEQ/L (98-107); GLOMERULAR FILTRATION RATE > 60.0 (>60); GLUCOSE, FASTING 98 MG/DL (70-100); LIPASE 274 U/L (73-393); POTASSIUM SERUM 4.2 MEQ/L (3.5-5.1); SODIUM LEVEL 142 MEQ/L (136-145); TOTAL PROTEIN 7.6 GM/DL (6.4-8.2)
[2017-10-08 09:05] LABS: AMORPHOUS SEDIMENT SMALL (NEGATIVE); APPEARANCE, URINE CLEAR (CLEAR); BACTERIA, URINE AUTO NEGATIVE (NEGATIVE); BILIRUBIN, URINE AUTO NEGATIVE (NEGATIVE); BLOOD, URINE BLOOD NEGATIVE (NEGATIVE); COLOR, URINE YELLOW (YELLOW); GLUCOSE, URINE (UA) AUTO NEGATIVE (NEGATIVE); KETONE, URINE AUTO NEGATIVE (NEGATIVE); LEUKOCYTE ESTERASE, URINE AUTO NEGATIVE (NEGATIVE); MUCUS, URINE SMALL (NEGATIVE); NITRITE, URINE AUTO NEGATIVE (NEGATIVE); PROTEIN, URINE AUTO NEGATIVE (NEGATIVE); RBC, URINE AUTO 1 /HPF (0-3); SPECIFIC GRAVITY URINE AUTO 1.008 (1.002-1.035); SQUAMOUS EPITHELIAL CELL UR AU 1 /HPF (0-6); UROBILINOGEN, URINE AUTO 0.2 mg/dL (0.0-2.0); WBC, URINE AUTO 0 /HPF (0-3)
[2017-10-08] MEDS: D5W/0.45% SODIUM CHLORIDE 1,000 ML IV (09:36)
[2017-10-08] MEDS ORDERED: ACETAMINOPHEN TAB 650MG DOSE (2X325MG) PO (09:45)
[2017-10-08] MEDS ORDERED: PERCOCET 5MG/325MG TAB PO (09:45)
[2017-10-08] MEDS: ONDANSETRON 4MG/2ML VIAL (J2405) IV ×2 (10:54→21:20)
[2017-10-08] MEDS: MORPHINE 4 MG/ML 1ML VIAL/SYRINGE (J2270) IV (10:54)
[2017-10-08] MEDS: SUCRALFATE SUSP 1GM/10ML UD PO ×4 (12:00→23:44)
[2017-10-08] MEDS: GI COCKTAIL 50ML BTL(HYOSCYAMINE/MAALOX/LIDOCAINE VISCOUS)(1:3:1) PO (12:45)
[2017-10-08] MEDS ORDERED: PROMETHAZINE INJ 25 MG/ML VIAL (J2550) IV (13:45)
[2017-10-08] MEDS: METOCLOPRAMIDE INJ 10MG/2ML VIAL (J2765) IV (13:48)
[2017-10-08] MEDS: PANTOPRAZOLE 40MG INJ (PROTONIX) (C9113) IV (13:48)
[2017-10-08] MEDS: PERCOCET 5MG/325MG TAB PO ×2 (13:49→21:20)
[2017-10-08] MEDS ORDERED: GI COCKTAIL 50ML BTL(HYOSCYAMINE/MAALOX/LIDOCAINE VISCOUS)(1:3:1) PO (16:00)
[2017-10-08] MEDS: LORazepam 2 MG TAB PO ×2 (16:59→21:18)
[2017-10-08] MEDS: ZIPRASIDONE 80 MG CAP (GEODON) PO (21:18)
[2017-10-08] MEDS: traZODone 100 MG TAB PO (21:18)
[2017-10-08] MEDS: PRAZOSIN 1 MG CAP PO (21:19)
[2017-10-08] MEDS: ZONISAMIDE 100 MG CAP (ZONEGRAN) PO (21:19)
[2017-10-09 05:27] LABS: BASO % 0.6 % (0.0-1.0); EOS # 0.2 10^3/uL (0.0-0.50); EOS % 2.9 % (0.0-3.0); HEMATOCRIT 41.5 % (42.0-52.0); HEMOGLOBIN 15.1 g/dl (13.5-17.5); IMMATURE GRANULOCYTE % 0.2 % (0-3.0); LYMPH # 2.8 10^3/uL (1.5-4.5); LYMPH % 43.9 % (24.0-44.0); MEAN CORPUSCULAR HEMOGLOBIN 34.4 pg (27.0-33.0); MEAN CORPUSCULAR HGB CONC 36.4 g/dl (32.0-36.5); MEAN CORPUSCULAR VOLUME 94.5 fl (80.0-96.0); MONO # 0.4 10^3/uL (0.0-0.8); MONO % 6.3 % (0.0-5.0); NEUTROPHILS % 46.1 % (36.0-66.0); PLATELET COUNT, AUTOMATED 213 10^3/uL (150-450); RED BLOOD COUNT 4.39 10^6/uL (4.30-6.10); RED CELL DISTRIBUTION WIDTH 12.7 % (11.5-14.5); WHITE BLOOD COUNT 6.5 10^3/uL (4.0-10.0)
[2017-10-09 05:34] LABS: ALBUMIN 3.2 GM/DL (3.2-5.2); ALBUMIN/GLOBULIN RATIO 1.07 (1.00-1.93); ALKALINE PHOSPHATASE 46 U/L (45-117); ALT/SGPT 23 U/L (12-78); ANION GAP 4 MEQ/L (8-16); AST/SGOT 17 U/L (7-37); BILIRUBIN,TOTAL 0.6 MG/DL (0.2-1.0); BLOOD UREA NITROGEN 11 MG/DL (7-18); CALCIUM LEVEL 8.3 MG/DL (8.5-10.1); CARBON DIOXIDE LEVEL 30 MEQ/L (21-32); CHLORIDE LEVEL 108 MEQ/L (98-107); CREATININE FOR GFR 1.18 MG/DL (0.70-1.30); GLOMERULAR FILTRATION RATE > 60.0 (>60); GLUCOSE, FASTING 92 MG/DL (70-100); POTASSIUM SERUM 3.8 MEQ/L (3.5-5.1); SODIUM LEVEL 142 MEQ/L (136-145); TOTAL PROTEIN 6.2 GM/DL (6.4-8.2)
[2017-10-09] MEDS: SUCRALFATE SUSP 1GM/10ML UD PO ×2 (05:48→12:09)
[2017-10-09 06:58] LABS: LIPASE 161 U/L (73-393)
[2017-10-09] MEDS: D5W/0.45% SODIUM CHLORIDE 1,000 ML IV ×2 (07:03→12:56)
[2017-10-09] MEDS: PROMETHAZINE INJ 25 MG/ML VIAL (J2550) IV ×2 (07:48→12:09)
[2017-10-09] MEDS ORDERED: E-Z-GAS II EFFERVESCENT PACKET (SODIUM BICARB./CITRIC ACID/SIMETHICONE) As Ordered (07:56)
[2017-10-09] MEDS ORDERED: E-Z-PAQUE 96% w/w SUSP 176GM BTL As Ordered (07:56)
[2017-10-09] MEDS ORDERED: E-Z-HD 98% w/w 340GM SUSP BTL As Ordered (07:57)
[2017-10-09] MEDS: LORazepam 2 MG TAB PO (09:00)
[2017-10-09] MEDS: PANTOPRAZOLE 40MG INJ (PROTONIX) (C9113) IV (12:09)
== END 2017-10-09 13:34 | disposition home or self-care (01) ==
LOC: M ED 05:00 → M ED INP 09:36 → M MSPAV 13:33
DX: K29.70 Gastritis, unspecified, without bleeding (principal); R10.12 Left upper quadrant pain; K21.9 Gastro-esophageal reflux disease without esophagitis; F90.9 Attention-deficit hyperactivity disorder, unspecified type; F41.9 Anxiety disorder, unspecified; K76.0 Fatty (change of) liver, not elsewhere classified; F17.210 Nicotine dependence, cigarettes, uncomplicated; Z79.899 Other long term (current) drug therapy; F64.0 Transsexualism
CPT/HCPCS: C9113

== ENCOUNTER 2017-11-30 10:52 | Day surgery (SDC) | payer BC ==
[2017-11-30] MEDS: NS 1,000 ML IV (11:07)
[2017-11-30] MEDS ORDERED: LIDOCAINE 2% INJ 100 MG/5 ML SDV (FOR ANES.) As Ordered (11:57)
[2017-11-30] MEDS ORDERED: PROPOFOL 200 MG/20 ML VIAL As Ordered ×3 (11:57→12:11)
== END 2017-11-30 12:58 | disposition home or self-care (01) ==
LOC: M OPP 10:52
DX: R63.4 Abnormal weight loss (principal); K59.00 Constipation, unspecified; K57.30 Diverticulosis of large intestine without perforation or abscess without bleeding; K64.8 Other hemorrhoids; R93.3 Abnormal findings on diagnostic imaging of other parts of digestive tract; K29.70 Gastritis, unspecified, without bleeding; R11.2 Nausea with vomiting, unspecified; K21.9 Gastro-esophageal reflux disease without esophagitis; M19.90 Unspecified osteoarthritis, unspecified site; F90.9 Attention-deficit hyperactivity disorder, unspecified type; F43.10 Post-traumatic stress disorder, unspecified; F41.9 Anxiety disorder, unspecified; F31.9 Bipolar disorder, unspecified; G43.909 Migraine, unspecified, not intractable, without status migrainosus; R56.9 Unspecified convulsions; F17.210 Nicotine dependence, cigarettes, uncomplicated; Z79.899 Other long term (current) drug therapy
CPT/HCPCS: 45378

== ENCOUNTER → 2017-12-30 | Outpatient (REF) | payer MEDICAID, MEDICARE ==
[2017-12-30 16:20] LABS: BASO # 0.1 10^3/uL (0.0-0.2); BASO % 0.9 % (0.0-1.0); EOS # 0.2 10^3/uL (0.0-0.50); EOS % 2.6 % (0.0-3.0); HEMATOCRIT 44.2 % (42.0-52.0); HEMOGLOBIN 16.1 g/dl (13.5-17.5); IMMATURE GRANULOCYTE % 0.1 % (0-3.0); LYMPH # 2.9 10^3/uL (1.5-4.5); LYMPH % 41.6 % (24.0-44.0); MEAN CORPUSCULAR HEMOGLOBIN 35.1 pg (27.0-33.0); MEAN CORPUSCULAR HGB CONC 36.4 g/dl (32.0-36.5); MEAN CORPUSCULAR VOLUME 96.3 fl (80.0-96.0); MONO # 0.5 10^3/uL (0.0-0.8); MONO % 7.8 % (0.0-5.0); NEUTROPHILS # 3.2 10^3/uL (1.8-7.7); PLATELET COUNT, AUTOMATED 199 10^3/uL (150-450); RED BLOOD COUNT 4.59 10^6/uL (4.30-6.10); RED CELL DISTRIBUTION WIDTH 12.3 % (11.5-14.5); WHITE BLOOD COUNT 6.9 10^3/uL (4.0-10.0)
[2017-12-30 16:33] LABS: ALBUMIN/GLOBULIN RATIO 1.43 (1.00-1.93); ALKALINE PHOSPHATASE 51 U/L (45-117); ALT/SGPT 31 U/L (12-78); ANION GAP 7 MEQ/L (8-16); AST/SGOT 14 U/L (7-37); BILIRUBIN,TOTAL 0.7 MG/DL (0.2-1.0); BLOOD UREA NITROGEN 10 MG/DL (7-18); CARBON DIOXIDE LEVEL 29 MEQ/L (21-32); CHLORIDE LEVEL 105 MEQ/L (98-107); CREATININE FOR GFR 1.16 MG/DL (0.70-1.30); GLOMERULAR FILTRATION RATE > 60.0 (>60); GLUCOSE, FASTING 77 MG/DL (70-100); POTASSIUM SERUM 3.7 MEQ/L (3.5-5.1); SODIUM LEVEL 141 MEQ/L (136-145); TOTAL PROTEIN 6.8 GM/DL (6.4-8.2)
[2017-12-30 16:39] LABS: TOTAL 25(OH) VITAMIN D 58.5 NG/ML (30.0-100.0)
[2017-12-30 16:40] LABS: FOLATE 15.2 NG/ML
[2017-12-30 16:41] LABS: VITAMIN B12 LEVEL 568 PG/ML
[2018-01-03 15:09] LABS: ANTI THROMBIN 3 ANTIGEN IMMUNO 89 % (72-124); ANTI THROMBIN 3 FUNCT ACTIVITY 102 % (75-135); CARDIOLIPIN IGA ANTIBODY <9 APL U/mL (0-11); CARDIOLIPIN IGG ANTIBODY <9 GPL U/mL (0-14); CARDIOLIPIN IGM ANTIBODY <9 MPL U/mL (0-12); PROTEIN C FUNCTIONAL ACTIVITY 106 % (73-180); PROTEIN S FUNCTIONAL ACTIVITY 124 % (63-140)
[2018-01-05 11:08] LABS: DRVV SCREEN 56.1 SEC
[2018-01-05 11:13] LABS: PTT LUPUS TYPE ANTICOAG SCREEN 1.3 (0-1.2)
[2018-01-05 11:20] LABS: DRVV CONFIRM 54.8 SEC; LUPUS CONFIRM RATIO 1.5
[2018-01-05 11:26] LABS: NORMALIZED RATIO 0.87 (0.00-1.20)
== END ==
LOC: M LABDRAW1 14:55
DX: R51 Headache (principal); F64.0 Transsexualism
CPT/HCPCS: 82746

== ENCOUNTER → 2017-12-30 | Outpatient (REF) | payer MEDICARE, MEDICAID ==
[2017-12-30 16:35] LABS: CHOLESTEROL LEVEL 168 MG/DL (<200); HDL CHOLESTEROL 48 MG/DL (>40); LDL CHOLESTEROL 88.2 MG/DL (<100); NON-HDL-C 120 MG/DL; TRIGLYCERIDES LEVEL 159 MG/DL (<150)
== END ==
LOC: M LABDRAW1 14:51
DX: E78.1 Pure hyperglyceridemia (principal)

== ENCOUNTER → 2017-12-30 | Outpatient (REF) | payer MEDICARE, MEDICAID ==
[2017-12-30 19:59] LABS: TESTOSTERONE 964 NG/DL (241-827)
== END ==
LOC: M LABDRAW1 14:53
DX: F64.0 Transsexualism (principal)

== ENCOUNTER → 2018-01-27 | Outpatient (CLI) | payer MEDICARE, MEDICAID | LOC: M LRY 09:48 | DX: J40 Bronchitis, not specified as acute or chronic (principal) | CPT/HCPCS: 71046 ==

== ENCOUNTER → 2018-02-25 | Outpatient (REF) | payer MEDICAID | LOC: M SFHCLERA 20:03 | DX: N39.0 Urinary tract infection, site not specified (principal) | CPT/HCPCS: 87186 ==

== ENCOUNTER → 2018-03-04 | Outpatient (REF) | payer MEDICAID ==
[2018-03-05 14:13] LABS: CHLAMYDIA DNA AMPLIFICATION NEGATIVE (NEGATIVE); GC DNA AMPLIFICATION NEGATIVE (NEGATIVE)
== END ==
LOC: M SFHCLERA 20:54
DX: R30.0 Dysuria (principal)

== ENCOUNTER 2018-03-08 07:59 | Emergency (ER) | payer MEDICAID, SELFPAY ==
[2018-03-08 08:35] LABS: KETONE, URINE AUTO RFX NEGATIVE (NEGATIVE); MUCUS, URINE RFX SMALL (NEGATIVE); NITRITE, URINE AUTO RFX NEGATIVE (NEGATIVE); RBC, URINE AUTO RFX 10 /HPF (0-3); SPECIFIC GRAVITY UR AUTO RFX 1.012 (1.002-1.035); SQUAM EPITHELIAL CELL UR AURFX 1 /HPF (0-6)
[2018-03-08 08:37] LABS: LEUKOCYTE ESTERASE UR AUTO RFX 2+ (NEGATIVE); WBC, URINE AUTO RFX 25 /HPF (0-3)
[2018-03-08 08:50] LABS: BASO % 0.5 % (0.0-1.0); EOS # 0.2 10^3/uL (0.0-0.50); EOS % 2.6 % (0.0-3.0); HEMATOCRIT 40.2 % (42.0-52.0); HEMOGLOBIN 14.4 g/dl (13.5-17.5); IMMATURE GRANULOCYTE % 0.4 % (0-3.0); LYMPH # 2.1 10^3/uL (1.5-4.5); LYMPH % 25.1 % (24.0-44.0); MEAN CORPUSCULAR HEMOGLOBIN 34.5 pg (27.0-33.0); MEAN CORPUSCULAR HGB CONC 35.8 g/dl (32.0-36.5); MEAN CORPUSCULAR VOLUME 96.4 fl (80.0-96.0); MONO # 0.5 10^3/uL (0.0-0.8); NEUTROPHILS # 5.4 10^3/uL (1.8-7.7); NEUTROPHILS % 65.4 % (36.0-66.0); PLATELET COUNT, AUTOMATED 248 10^3/uL (150-450); RED BLOOD COUNT 4.17 10^6/uL (4.30-6.10); RED CELL DISTRIBUTION WIDTH 11.9 % (11.5-14.5); WHITE BLOOD COUNT 8.2 10^3/uL (4.0-10.0)
[2018-03-08 08:56] LABS: ANION GAP 7 MEQ/L (8-16); BLOOD UREA NITROGEN 15 MG/DL (7-18); CALCIUM LEVEL 8.8 MG/DL (8.5-10.1); CARBON DIOXIDE LEVEL 27 MEQ/L (21-32); CHLORIDE LEVEL 109 MEQ/L (98-107); CREATININE FOR GFR 1.33 MG/DL (0.70-1.30); GLOMERULAR FILTRATION RATE > 60.0 (>60); GLUCOSE, FASTING 100 MG/DL (70-100); POTASSIUM SERUM 3.9 MEQ/L (3.5-5.1); SODIUM LEVEL 143 MEQ/L (136-145)
[2018-03-08] MEDS: KETOROLAC 60 MG/2 ML VIAL (J1885) IM (09:20)
[2018-03-08] MEDS: PROMETHAZINE 25 MG TAB PO (09:20)
== END 2018-03-08 10:52 | disposition home or self-care (01) ==
LOC: M ED 07:59
DX: N39.0 Urinary tract infection, site not specified (principal); K21.9 Gastro-esophageal reflux disease without esophagitis; R56.9 Unspecified convulsions; F41.0 Panic disorder [episodic paroxysmal anxiety]; F90.9 Attention-deficit hyperactivity disorder, unspecified type; F43.10 Post-traumatic stress disorder, unspecified; F31.9 Bipolar disorder, unspecified; F64.9 Gender identity disorder, unspecified; J30.2 Other seasonal allergic rhinitis; Z72.0 Tobacco use; Z79.899 Other long term (current) drug therapy
CPT/HCPCS: J1885

== ENCOUNTER → 2018-05-22 | Outpatient (CLI) | payer MEDICAID ==
[~2018-05-22] MED LIST changes: +CIPR-249 PO; +CLAR10CA3 PO; -CLON1TAB PO; +CLON1TAB8 PO; +GEOD40CA13 PO; -GEOD40CA2 PO; +LORA2TAB9 PO; +PRIL20TA2 PO; +SMZ/TMP; +SUMA100T2 PO; +TEST200I14 IM; +TRAZ300T2 PO; +ZIPR80CA12 PO; +ZOFR4SOL PO; +ZONI25CA2 PO
[2018-05-22 12:44] LABS: BASO % 0.7 % (0.0-1.0); EOS # 0.1 10^3/uL (0.0-0.50); EOS % 2.1 % (0.0-3.0); HEMATOCRIT 43.5 % (42.0-52.0); HEMOGLOBIN 15.8 g/dl (13.5-17.5); LYMPH % 32.3 % (24.0-44.0); MEAN CORPUSCULAR HEMOGLOBIN 34.6 pg (27.0-33.0); MEAN CORPUSCULAR HGB CONC 36.3 g/dl (32.0-36.5); MEAN CORPUSCULAR VOLUME 95.4 fl (80.0-96.0); MONO # 0.6 10^3/uL (0.0-0.8); MONO % 9.7 % (0.0-5.0); NEUTROPHILS # 3.3 10^3/uL (1.8-7.7); PLATELET COUNT, AUTOMATED 246 10^3/uL (150-450); RED BLOOD COUNT 4.56 10^6/uL (4.30-6.10); WHITE BLOOD COUNT 6.1 10^3/uL (4.0-10.0)
== END ==
LOC: M LAB 11:44
PROVIDERS: ATTEND Internal Medicine Endocrinology, Diabetes & Metabolism
DX: D72.829 Elevated white blood cell count, unspecified (principal)

== ENCOUNTER → 2018-07-18 | Outpatient (CLI) | payer MEDICAID ==
[2018-07-18 18:35] LABS: BASO # 0.1 10^3/uL (0.0-0.2); BASO % 0.7 % (0.0-1.0); EOS # 0.2 10^3/uL (0.0-0.50); HEMOGLOBIN 14.4 g/dl (13.5-17.5); LYMPH # 2.1 10^3/uL (1.5-4.5); LYMPH % 31.5 % (24.0-44.0); MEAN CORPUSCULAR HEMOGLOBIN 34.6 pg (27.0-33.0); MEAN CORPUSCULAR HGB CONC 35.1 g/dl (32.0-36.5); MEAN CORPUSCULAR VOLUME 98.6 fl (80.0-96.0); MONO # 0.6 10^3/uL (0.0-0.8); MONO % 8.8 % (0.0-5.0); NEUTROPHILS # 3.8 10^3/uL (1.8-7.7); NEUTROPHILS % 55.7 % (36.0-66.0); PLATELET COUNT, AUTOMATED 256 10^3/uL (150-450); RED BLOOD COUNT 4.16 10^6/uL (4.30-6.10); WHITE BLOOD COUNT 6.7 10^3/uL (4.0-10.0)
[2018-07-18 18:42] LABS: ALBUMIN 3.7 GM/DL (3.2-5.2); ALT/SGPT 25 U/L (12-78); BILIRUBIN,TOTAL 0.3 MG/DL (0.2-1.0); BLOOD UREA NITROGEN 8 MG/DL (7-18); CALCIUM LEVEL 8.9 MG/DL (8.5-10.1); CARBON DIOXIDE LEVEL 28 MEQ/L (21-32); CHLORIDE LEVEL 106 MEQ/L (98-107); CREATININE FOR GFR 1.04 MG/DL (0.70-1.30); GLOMERULAR FILTRATION RATE > 60.0 (>60); GLUCOSE, FASTING 92 MG/DL (70-100); POTASSIUM SERUM 3.9 MEQ/L (3.5-5.1); SODIUM LEVEL 143 MEQ/L (136-145); TOTAL PROTEIN 6.4 GM/DL (6.4-8.2)
== END ==
LOC: M WUC 13:34
PROVIDERS: ATTEND Psychiatry & Neurology Neurology
DX: R51 Headache (principal)

== ENCOUNTER → 2018-07-26 | Outpatient (REF) | payer MEDICAID | LOC: M SFHCLERA 19:29 | PROVIDERS: ATTEND Nurse Practitioner Family | DX: R50.9 Fever, unspecified (principal) ==

== ENCOUNTER → 2018-11-07 | Outpatient (CLI) | payer MEDICAID ==
[2018-11-07 18:15] LABS: BASO # 0.1 10^3/uL (0.0-0.2); BASO % 0.9 % (0.0-1.0); EOS # 0.2 10^3/uL (0.0-0.50); EOS % 3.8 % (0.0-3.0); HEMATOCRIT 45.1 % (42.0-52.0); HEMOGLOBIN 15.6 g/dl (13.5-17.5); MEAN CORPUSCULAR HEMOGLOBIN 33.4 pg (27.0-33.0); MEAN CORPUSCULAR HGB CONC 34.6 g/dl (32.0-36.5); MEAN CORPUSCULAR VOLUME 96.6 fl (80.0-96.0); MONO # 0.5 10^3/uL (0.0-0.8); MONO % 7.6 % (0.0-5.0); NEUTROPHILS # 3.6 10^3/uL (1.8-7.7); NEUTROPHILS % 56.4 % (36.0-66.0); PLATELET COUNT, AUTOMATED 235 10^3/uL (150-450); RED BLOOD COUNT 4.67 10^6/uL (4.30-6.10); WHITE BLOOD COUNT 6.4 10^3/uL (4.0-10.0)
[2018-11-07 18:21] LABS: ALBUMIN 3.8 GM/DL (3.2-5.2); BILIRUBIN,DIRECT 0.1 MG/DL (0.0-0.2); BILIRUBIN,TOTAL 0.4 MG/DL (0.2-1.0); TOTAL PROTEIN 6.5 GM/DL (6.4-8.2)
== END ==
LOC: M WUC 12:09
PROVIDERS: ATTEND Internal Medicine Endocrinology, Diabetes & Metabolism
DX: F64.0 Transsexualism (principal)

== ENCOUNTER 2018-12-13 13:04 | Emergency (ER) | payer MEDICARE, MEDICAID ==
[~2018-12-13] VITALS: Ht 172.7 cm; Wt 85.0 kg
[2018-12-13 13:42] LABS: BASO # 0.1 10^3/uL (0.0-0.2); BASO % 0.6 % (0.0-1.0); EOS # 0.1 10^3/uL (0.0-0.50); EOS % 1.3 % (0.0-3.0); HEMATOCRIT 44.5 % (42.0-52.0); HEMOGLOBIN 16.1 g/dl (13.5-17.5); LYMPH # 2.2 10^3/uL (1.5-4.5); LYMPH % 28.2 % (24.0-44.0); MEAN CORPUSCULAR HEMOGLOBIN 34.4 pg (27.0-33.0); MEAN CORPUSCULAR HGB CONC 36.2 g/dl (32.0-36.5); MEAN CORPUSCULAR VOLUME 95.1 fl (80.0-96.0); MONO # 0.5 10^3/uL (0.0-0.8); MONO % 6.7 % (0.0-5.0); NEUTROPHILS # 4.9 10^3/uL (1.8-7.7); NEUTROPHILS % 63.1 % (36.0-66.0); PLATELET COUNT, AUTOMATED 223 10^3/uL (150-450); RED BLOOD COUNT 4.68 10^6/uL (4.30-6.10); WHITE BLOOD COUNT 7.8 10^3/uL (4.0-10.0)
[2018-12-13 14:09] LABS: ALBUMIN 4.3 GM/DL (3.2-5.2); ALT/SGPT 28 U/L (12-78); BILIRUBIN,DIRECT 0.2 MG/DL (0.0-0.2); BILIRUBIN,TOTAL 0.6 MG/DL (0.2-1.0); BLOOD UREA NITROGEN 11 MG/DL (7-18); CALCIUM LEVEL 8.7 MG/DL (8.5-10.1); CARBON DIOXIDE LEVEL 22 MEQ/L (21-32); CHLORIDE LEVEL 108 MEQ/L (98-107); CREATININE FOR GFR 1.18 MG/DL (0.70-1.30); GLOMERULAR FILTRATION RATE > 60.0 (>60); GLUCOSE, FASTING 98 MG/DL (70-100); LIPASE 283 U/L (73-393); POTASSIUM SERUM 3.5 MEQ/L (3.5-5.1); SODIUM LEVEL 139 MEQ/L (136-145); TOTAL PROTEIN 7.3 GM/DL (6.4-8.2)
[2018-12-13] MEDS ORDERED: ATIV2TAB (14:39)
[2018-12-13] MEDS ORDERED: ASPI81TA85 PO (14:39)
[2018-12-13] MEDS ORDERED: KETOROLAC 30 MG/ML VIAL (J1885) IV ONE (15:30)
[2018-12-13] MEDS ORDERED: NS 1,000 ML IV ONE (15:30)
[2018-12-13] MEDS ORDERED: ISOVUE-370 76% 100ML VIAL (Q9967) As Ordered ONE (15:38)
[2018-12-13 16:00] LABS: GLUCOSE, URINE (UA) MANUAL OBSCURED mg/dL (NEGATIVE)
[2018-12-13 16:01] LABS: BILIRUBIN, URINE MANUAL OBSCURED (NEGATIVE); KETONE, URINE MANUAL OBSCURED mg/dL (NEGATIVE); UROBILINOGEN, URINE MANUAL OBSCURED mg/dl (NORMAL)
[2018-12-13 16:12] LABS: BACTERIA, URINE NONE SEEN; HYALINE CAST, URINE NONE SEEN /lpf (0-1); MUCUS, URINE LARGE AMOUNT (NEGATIVE); RBC, URINE 0-1 /hpf (0-3); SQUAMOUS EPITHELIAL CELL URINE SMALL AMOUNT /hpf (SMALL AMT); TRANSITIONAL EPI CELLS, URINE SMALL AMOUNT /hpf
[2018-12-13 17:25] VITALS: BP 107/58
--- NOTE | 2018-12-13 18:03 | REP ---
CT ABDOMEN AND PELVIS WITH IV CONTRAST: TECHNIQUE: Axial contrast enhanced images from the lung bases to the pubic symphysis using 100 mL Isovue 370 intravenous contrast material with multiplanar reformations. Visualized lung bases demonstrate no infiltrate. The liver, spleen, adrenals, pancreas and kidneys appear unremarkable. There is no hydronephrosis. There is no abdominal aortic aneurysm. There is no adenopathy. There is no free air or free fluid. There is no evidence of appendicitis. There does appear to be a 4 mm appendicolith in the distal appendix. No pelvic mass is seen. The urinary bladder is not distended and not evaluated. IMPRESSION: No evidence of diverticulitis or appendicitis. No free air or free fluid. There is a 4 mm appendicolith in the distal appendix. Electronically Signed by Pierre Ward MD 12/14/2018 11:09 A
--- NOTE | 2018-12-13 23:52 | ECGEPIP ---
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
== END 2018-12-13 17:54 | disposition home or self-care (01) ==
LOC: M ED 15:04
DX: R10.84 Generalized abdominal pain (principal); R19.7 Diarrhea, unspecified; R11.0 Nausea; R00.1 Bradycardia, unspecified; I45.10 Unspecified right bundle-branch block; F31.9 Bipolar disorder, unspecified; F43.10 Post-traumatic stress disorder, unspecified; R56.9 Unspecified convulsions; F41.9 Anxiety disorder, unspecified; F90.9 Attention-deficit hyperactivity disorder, unspecified type; F64.9 Gender identity disorder, unspecified; K21.9 Gastro-esophageal reflux disease without esophagitis; J30.2 Other seasonal allergic rhinitis; Z72.0 Tobacco use; Z79.82 Long term (current) use of aspirin; Z79.899 Other long term (current) drug therapy
CPT/HCPCS: 74177; 80048; 80076; 81000; 83690; 85025; 87086; 93005; 96361; 96374; 99284; G0463; J1885; Q9967

== ENCOUNTER → 2018-12-14 | Outpatient (REF) | payer MEDICARE, MEDICAID ==
[~2018-12-14] MED LIST changes: +ASPI81TA85 PO; +ATIV2TAB
== END ==
LOC: M LAB REF 15:51
PROVIDERS: ATTEND Physician Assistant Medical
DX: R10.9 Unspecified abdominal pain (principal); R19.7 Diarrhea, unspecified

== ENCOUNTER → 2019-01-26 | Outpatient (CLI) | payer MEDICARE, MEDICAID ==
[~2019-01-26] MED LIST changes: -LORA1TAB12; +LORA1TAB4; +LORA2TAB14 PO; -LORA2TAB9 PO; +METHACHOLINE KIT (J7674) INH ONE; -OMEP40CA2 PO; +OMEP40CA97 PO; +ZONI25CA13 PO; -ZONI25CA2 PO
--- NOTE | 2019-01-26 13:53 | PFTRPT ---
Height: 68.00 Inches Weight: 18.00 Lbs BSA: 0.73 Diagnosis: R07.89 DATE OF PROCEDURE: 01/26/2019 ORDERED BY: Luh Caballero Spirometry: Pre and post bronchodilator study of excellent technical quality. Forced vital capacity normal. FEV1 in proportion. Obstructive index is, therefore, normal. Flow Volume Loop: Expiratory limb of the flow volume loop is normal. No significant bronchodilator response identified. Lung Volumes: Total lung capacity normal. Residual volume suggests a degree of air trapping. Diffusing Capacity: Diffusing capacity normal and remains normal when corrected for alveolar volume. Hemoglobin: No hemoglobin available for correction. Airway Mechanics: Airway resistance and conductance are normal. IMPRESSION: Cannot rule out a degree of air trapping. Please correlate clinically. MTDD
== END ==
LOC: M CARPUL 13:03
PROVIDERS: ATTEND Nurse Practitioner Adult Health
DX: R07.89 Other chest pain (principal)

== ENCOUNTER → 2019-05-30 | Outpatient (REF) | payer MEDICARE, MEDICAID ==
[~2019-05-30] MED LIST changes: +LORA1TAB12; -LORA1TAB4; -LORA2TAB14 PO; +LORA2TAB9 PO; -METHACHOLINE KIT (J7674) INH ONE; -ZONI25CA13 PO; +ZONI25CA2 PO
[2019-05-30 14:19] LABS: BASO # 0.1 10^3/uL (0.0-0.2); BASO % 0.7 % (0.0-1.0); EOS # 0.3 10^3/uL (0.0-0.5); EOS % 4.9 % (0.0-3.0); HEMATOCRIT 43.5 % (42.0-52.0); HEMOGLOBIN 15.2 g/dl (13.5-17.5); LYMPH # 2.4 10^3/uL (1.5-5.0); LYMPH % 35.7 % (24.0-44.0); MEAN CORPUSCULAR HEMOGLOBIN 34.3 pg (27.0-33.0); MEAN CORPUSCULAR HGB CONC 34.9 g/dl (32.0-36.5); MEAN CORPUSCULAR VOLUME 98.2 fl (80.0-96.0); MONO # 0.5 10^3/uL (0.0-0.8); MONO % 7.1 % (0.0-5.0); NEUTROPHILS # 3.5 10^3/uL (1.5-8.5); NEUTROPHILS % 51.5 % (36.0-66.0); PLATELET COUNT, AUTOMATED 217 10^3/uL (150-450); RED BLOOD COUNT 4.43 10^6/uL (4.30-6.10); WHITE BLOOD COUNT 6.8 10^3/uL (4.0-10.0)
[2019-05-30 14:43] LABS: ALBUMIN 3.7 GM/DL (3.2-5.2); ALT/SGPT 39 U/L (12-78); BILIRUBIN,TOTAL 0.5 MG/DL (0.2-1.0); BLOOD UREA NITROGEN 9 MG/DL (7-18); CALCIUM LEVEL 8.9 MG/DL (8.5-10.1); CARBON DIOXIDE LEVEL 24 MEQ/L (21-32); CHLORIDE LEVEL 113 MEQ/L (98-107); CHOLESTEROL LEVEL 177 MG/DL (<200); CHOLESTEROL RISK RATIO 4.116 (<5); CREATININE FOR GFR 1.07 MG/DL (0.70-1.30); FREE T4 0.86 NG/DL (0.76-1.46); GLOMERULAR FILTRATION RATE > 60.0 (>60); GLUCOSE, FASTING 137 MG/DL (70-100); HDL CHOLESTEROL 43 MG/DL (>40); LDL CHOLESTEROL 83 MG/DL (<100); NON-HDL-C 134 MG/DL; POTASSIUM SERUM 3.7 MEQ/L (3.5-5.1); SODIUM LEVEL 143 MEQ/L (136-145); TOTAL 25(OH) VITAMIN D 28.7 NG/ML (30.0-100.0); TOTAL PROTEIN 6.5 GM/DL (6.4-8.2); TRIGLYCERIDES LEVEL 257 MG/DL (<150)
[2019-05-30 14:54] LABS: HEMOGLOBIN A1c 4.4 %
[2019-06-01 00:06] LABS: Lyme Disease IgG/IgM Antibodie <0.91 ISR (0.00-0.90); Lyme Disease IgM Ab Quantitati <0.80 index (0.00-0.79)
== END ==
LOC: M LAB REF 12:07
PROVIDERS: ATTEND Family Medicine
DX: Z13.228 Encounter for screening for other metabolic disorders (principal); M25.50 Pain in unspecified joint; Z79.899 Other long term (current) drug therapy

== ENCOUNTER → 2019-06-24 | Outpatient (CLI) | payer MEDICARE, MEDICAID ==
[~2019-06-24] MED LIST changes: -LORA1TAB12; +LORA1TAB4; +LORA2TAB14 PO; -LORA2TAB9 PO; +ZONI25CA13 PO; -ZONI25CA2 PO
--- NOTE | 2019-07-07 04:51 | ECWPNPC ---
PATIENT NAME: AVELINA DODGE : 1980 GENDER: MALE VISIT DATE: 06/24/2019 DISCHARGE DATE: 06/24/19 1606 VISIT LOCKED DATE TIME: PHYSICIAN: AYLEEN WINSTON MD RESOURCE: AYLEEN WINSTON MD REASON FOR APPOINTMENT 1. CHRONIC LOW BACK, MID BACK AND NECK PAIN HISTORY OF PRESENT ILLNESS PAIN SCREENING: PATIENT HAS A COMPLAINT OF ACUTE OR CHRONIC PAIN :YES 38-YEAR-OLD MALE PATIENT WITH A HISTORY OF CHRONIC NECK, THORACIC AND LOW BACK PAIN. THE PATIENT DESCRIBES THE PAIN SORE, SHARP, SHOOTING, CONTINUOUS, DAILY AND NIGHTLY WITH A PAIN SCORE OF 2-7/10 DEPENDING ON PHYSICAL ACTIVITY. THE PATIENT SAYS HIS CURRENT CONCERN IS HIS NECK AND THORACIC PAIN. THE PATIENT STATES THAT HE HAS EXPERIENCED THE PAIN FOR SEVERAL YEARS. THE PATIENT STATES THE PAIN AFFECTS HIS ABILITY TO GROCERY SHOP, CLEAN HIS HOME AND CARRY OUT DAILY ACTIVITIES. PATIENT DENIES UNEXPLAINABLE WEIGHT LOSS, FEVER, CHILLS, NEW CHANGES ON HIS URINARY OR BOWEL CONTROL. FALL RISK SCREENING: SCREENING :NO FALLS REPORTED IN THE LAST YEAR CURRENT MEDICATIONS TAKING PRAZOSIN HCL 2 MG CAPSULE 1 CAPSULE ORALLY BEFORE BEDTIME TAKING CUSTOM DO NOT USE TRAMADOL 50 MG TABLET ONE TAB ORALLY BID NEEDED TAKING TRAZODONE HCL 300 MG TABLET 2TABLET AT BEDTIME NEEDED ORALLY ONCE A DAY TAKING ATIVAN 2 MG TABLET 1 TAB ORALLY FOUR TIMES DAILY NEEDED, NOTES: 2 MG ADOLPH A DAY PER CLIENT TAKING ADDERALL 30 MG TABLET 2TABLET IN THE MORNING ORALLY ONCE A DAY TAKING GEODON 80 MG CAPSULE 1 TAB ORALLY TWICE DAILY TAKING DEPO-TESTOSTERONE _ SOLUTION 120ML INTRAMUSCULAR WEEKLY TAKING ZONISAMIDE 100 MG CAPSULE 2 CAPSULE ORALLY ONCE A DAY TAKING LORATADINE 10 MG TABLET 1 TABLET ORALLY ONCE A DAY, NOTES: TAKES NEEDED SPRING/FALL TAKING SUMATRIPTAN SUCCINATE 100 MG TABLET 1 TABLET NEEDED ORALLY DAILY TAKING PRILOSEC 40 MG CAPSULE DELAYED RELEASE 1 CAPSULE ORALLY ONCE A DAY NOT-TAKING OMEPRAZOLE 40 MG CAPSULE DELAYED RELEASE 1 CAP ORALLY BEFORE BEDTIME MEDICATION LIST REVIEWED AND RECONCILED WITH THE PATIENT PAST MEDICAL HISTORY ADHD PTSD TRANSGENDER WITH GENDER REASSIGNMENT GENDER DYSPHORIA ANXIETY DISORDER WITH PANIC ATTACKS AND AGORAPHOBIA BIPOLAR DISORDER 1 WITH PSYCHOSIS BORDERLINE PERSONALITY DISORDER INSOMNIA MIGRANE HEADACHES GERD SOCIAL ANXIETY DISORDER LUMBAR RADICULOPATHY BRADYCARDIA RIGHT BUNDLE BRANCH BLOCK CERVICO-OCCIPITAL NEURALGIA SPONDYLOSIS OF CERVICAL SPINE ALLERGIES EGGS/APPLES/OATS: PT HAS ALLERGY TO EGGS NAUSEA/VOMITING/DIARRHEA - SIDE EFFECTS SEASONAL IC: SEASONAL ALLERGIES - SIDE EFFECTS SURGICAL HISTORY TUBAL LIGATION 2006 CARPAL TUNNEL RELEASE RIGHT 2012 ULNAR NERVE REPAIR RIGHT ELBOW 03/2014 CYST REMOVAL RIGHT WRIST 2009 COMPLETE HYSTERECTOMY/GENDER REASSIGNMENT 2014 BREAST REMOVAL WITH FREE NIPPLE GRAPHS 11/11/2014 FAMILY HISTORY FATHER: , HEPATITIS, DIAGNOSED WITH UNSPECIFIED HEART DISEASE, DIABETES MOTHER: ALIVE, NO ISSUES SIBLINGS: ALIVE SON(S): ALIVE PATERNAL GRAND FATHER: UNSPECIFIED HEART DISEASE PATERNAL GRAND MOTHER: UNSPECIFIED HEART DISEASE 1 SISTER(S) - HEALTHY. 4 SON(S) - HEALTHY. NO KNOWN HX OF BREAST, OVARIAN, OR COLORECTAL CANCER. SOCIAL HISTORY GENERAL: TOBACCO USE ARE YOU A:CURRENT SMOKER HOW OFTEN DO YOU SMOKE CIGARETTES?EVERY DAY HOW MANY CIGARETTES A DAY DO YOU SMOKE?11-20 ARE YOU INTERESTED IN QUITTING?THINKING ABOUT QUITTING PATIENT COUNSELED ON THE DANGERS OF TOBACCO USE AND URGED TO QUIT:01/26/2019 COUNSELED THE PATIENT ON SMOKING CESSATION, EDUCATION [id number]/21/2019 HIV / HEP-C SCREENING HIV TEST OFFERED TO PATIENT:YES DATE OFFERED:02/25/2018 TEST ACCEPTED:NO HEP-C TEST OFFERED TO PATIENT:YES DATE OFFERED:02/25/2018 REASON:PATIENT DECLINED TEST ACCEPTED:NO BROCHURE PROVIDED TO PATIENTNO OTHERS AT HOME: HIS AND ONE SON. HOUSING: RENTS APARTMENT. 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 LANGUAGE LANGUAGES SPOKEN:MACEDONIAN DOMESTIC VIOLENCE DO YOU FEEL SAFE IN YOUR ENVIRONMENT?YES RECREATIONAL DRUG USE DRUG USE?NO EXERCISE: NONE. LEARNING BARRIERS / SPECIAL NEEDS CHANGE FROM LAST VISIT?NO BARRIERS TO LEARNING?NO HEARING IMPAIRED?NO VISION IMPAIRED?YES COGNITIVELY IMPAIRED?NO :CORRECTIVE LENSES READINESS TO LEARN?YES LEARNING PREFERENCES?NO LEARNING CAPABILITIES PRESENT?YES EMOTIONAL BARRIERS?NO SPECIAL DEVICES?NO STOCK PARTS FABRICATOR NEEDED?NO PAIN CLINIC PFS, CLERGY, PUBLIC HEALTH REFERRALS HAS THE PATIENT BEEN EDUCATED REGARDING HIS/HER PLAN OF CARE?YES HAS THE PATIENT BEEN EDUCATED REGARDING PAIN, THE RISK FOR PAIN, THE IMPORTANCE OF EFFECTIVE PAIN MANAGEMENT, AND THE PAIN ASSESSMENT PROCESS?YES LATEX QUESTIONNAIRE LATEX ALLERGY : HAVE YOU EVER DEVELOPED ANY TYPE OF REACTION AFTER HANDLING LATEX PRODUCTS SUCH RUBBER GLOVES, CONDOMS, DIAPHRAGMS, BALLOONS, SOCKS, OR UNDERWEAR?NO LATEX ALLERGY : HAVE YOU EVER DEVELOPED ANY TYPE OF REACTION DURING OR AFTER DENTAL APPOINTMENT, VAGINAL/RECTAL EXAMINATION, SURGICAL PROCEDURE, OR ANY OTHER EXPOSURE?NO LATEX RISK : HAVE YOU EVER HAD ANY DIFFICULTY BREATHING OR HIVES AFTER EATING OR HANDLING ANY FRUITS, OR VEGETABLES; SUCH KIWI, BANANAS, STONE FRUITS, OR CHESTNUTSNO LATEX RISK : DO YOU HAVE A PREVIOUS PERSONAL HISTORY OF MORE THAN NINE SURGERIES, SPINA BIFIDA, OR REPEATED CATHERIZATIONS? NO LATEX RISK : ARE YOU FREQUENTLY EXPOSED TO LATEX PRODUCTS IN YOUR OCCUPATION?NO DATE ASKED : 06/24/2019 CAFFEINE CAFFEINE USE?YES COFFEE,SODA ONE A DAY ADVANCE DIRECTIVE ADVANCE DIRECTIVE DISCUSSED WITH PATIENT:YES PT HAS HCP FOR KUN DODGE [phone] PROTESTANT [id number] ATHEIST MARITAL STATUS: . ALCOHOL SCREENING DID YOU HAVE A DRINK CONTAINING ALCOHOL IN THE PAST YEAR?NO POINTS0 INTERPRETATIONNEGATIVE OCCUPATION: STUDENT. SEXUAL HX HAD SEX IN THE LAST 12 MONTHS (VAGINAL, ORAL, OR ANAL)?YES USE PROTECTION?NO HAVE YOU EVER HAD AN STD?NO [place] IN [place] 06/24/2019 1500 BV. HOSPITALIZATION/MAJOR DIAGNOSTIC PROCEDURE CELLULITIS 02/2015 REVIEW OF SYSTEMS REVIEWED BY: PROVIDER: AYLEEN WINSTON MD . CONSTITUTIONAL: ANY CHANGE IN YOUR MEDICAL CONDITION? NO . CHILLS NO . FEVER NO . INFECTION: DO YOU HAVE NEW INFECTIONS? NO . DO YOU HAVE HISTORY OF MRSA? NO . MUSCULOSKELETAL: ANY NEW PATTERNS OF PAIN OR NUMBNESS? INCREASING PAIN INTENSITY . SYTEMIC LUPUS NO . GASTROENTEROLOGY: ANY NEW CHANGE IN BOWEL CONTROL? NO . BARRETTS ESOPHAGUS NO . CIRRHOSIS NO . HEPATITIS NO . LIVER FAILURE NO . ACID REFLUX NO . UNEXPLAINED WEIGHT LOSS NO . GENITOURINARY: ANY NEW CHANGE IN BLADDER CONTROL? NO . IS THERE A CHANCE YOU COULD BE ? NO . HEMATOLOGY/LYMPH: DO YOU TAKE ANY BLOOD THINNERS? (FOR EXAMPLE- COUMADIN, PLAVIX, AGGRENOX, PLATEL, PRADAXA, OR XARELTO) NO . WHEN WAS YOUR LAST DOSE? DATE: TIME: . LOW PLATELET COUNT NO . SICKLE CELL DISEASE NO . VON WILLIEBRANDS NO . FACTOR V LEIDEN NO . THALLASEMIA NO . ANEMIA NO . EASY BRUISING NO . NEUROLOGY: HAVE YOU FALLEN IN THE PAST 12 MONTHS? NO . ANY NEW EXTREMITY NUMBNESS OR WEAKNESS? NO . HEAD INJURY YES, A TEENAGER. DOES NOT RECALL LOSS OF CONSCIOUSNESS WITH HEAD INJURY . DEMENTIA NO . CEREBRAL PALSY NO . MULTIPLE SCLEROSIS NO . DIZZINESS NO . HEADACHE PT REPORTS HISTORY OF HEADACHES. HE IS ON MEDICATION FOR HEADACHES AND SEES NEUROLOGY REGARDING THIS. . STROKES NO . VERTIGO NO . CARDIOLOGY: DO YOU HAVE A PACEMAKER OR DEFIBRILLATOR? NO . ANGINA NO . HEART ATTACK NO . HEART SURGERY NO . CONGESTIVE HEART FAILURE/FLUID OVERLOAD NO . CHEST PAIN PATIENT ADMITS, OCCASIONAL, RANDOM, PRESSURE-LIKE SENSATION, RELIEVED WITH REST . HIGH BLOOD PRESSURE NO . IRREGULAR HEART BEAT YES . RESPIRATORY: HAVE YOU BEEN SICK IN THE PAST WEEK? NO . FEVER NO . FLU LIKE SYMPTOMS? NO . CPAP NO . BYPAP NO . ASTHMA NO . EMPHYSEMA NO . CHRONIC LUNG DISEASES NO . SHORTNESS OF BREATH ON EXERTION NO . COUGH NO . SNORING NO . INTEGUMENTARY: DO YOU HAVE ANY RASHES OR OPEN SORES? NO . ALLERGIC/IMMUNO: ARE YOU ALLERGIC TO IV DYE? NO . ANY NEW ALLERGIES? NO . PSYCHIATRIC: DO YOU HAVE THOUGHTS OF HURTING YOURSELF OR SOMEONE ELSE? NO . ARE YOU ABUSED, NEGLECTED, OR IN AN UNSAFE ENVIRONMENT? NO . ENDOCRINOLOGY: ARE YOU DIABETIC? NO . THYROID DISORDER NO . OTHER: DO YOU NEED ANY PRESCRIPTIONS? YES, PT WOULD LIKE TO DISCUSS OPTIONS . IF YES, PLEASE LIST: ____ . ANY NEW PROBLEMS WITH YOUR MEDICATIONS? NO . WHEN DID YOU LAST EAT? ____ . WHEN DID YOU LAST DRINK? ____ . WHAT DID YOU LAST DRINK? ____ . NAME OF PERSON DRIVING YOU HOME? ____ . DO YOU HAVE ANY OTHER QUESTIONS OR CONCERNS NO . VITAL SIGNS WT 189 LBS, HT 68 IN, BMI 28.73 INDEX, BP 120/75 MM HG, HR 94 /MIN, RR 18 /MIN, TEMP 98.4 F, OXYGEN SAT % 96%, REVIEWED BY: BV. EXAMINATION GENERAL EXAMINATION: PATIENT IS ALERT O X 3 AND COOPERATIVE. LUNGS CLEAR, TO AUSCULTATION. HEART: NO MURMURS OR GALLOPS; FACIAL CRANIAL NERVES ARE GROSSLY NORMAL. GOOD SYMMETRY OF FACIAL MUSCLE MOVEMENT. NORMAL VISUAL WINTER. TENDERNESS IN THE CERVICAL AND THORACIC AREA OVER THE PARASPINAL MUSCLE GROUP. PAIN INCREASES OVER THE CERVICAL FACET JOINTS WITH EXTENSION AND LATERAL ROTATION OF THE NECK. PAIN INCREASES OVER THE THORACIC FACET JOINTS WITH EXTENSION AND LATERAL ROTATION OF THE BACK. THERE IS PRESENCE OF BANDS OF TISSUE AND TRIGGER POINTS WITH THE RESTRICTION OF MOVEMENT OF THE NECK AREA AND THORACIC AREA. MRI OF THE CERVICAL SPINE DONE ON 10/30/2017 SHOWS FACET ARTHROPATHY CHANGES. MRI OF THE THORACIC SPINE DONE ON 04/24/2019 SHOWS FACET ARTHROPATHY CHANGES AND DEGENERATIVE DISC DISEASE AT T7-T8. 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 DODGE'S PAIN MANAGEMENT CASE. DUE TO THE TRIGGER POINTS, BANDS OF TISSUE AND RESTRICTION OF MOVEMENT, I WOULD LIKE TO MOVE FORWARD WITH A NECK AND THORACIC TRIGGER POINT INJECTION AT THIS TIME. MR. DODGE'S VITAL SIGNS ARE STABLE; THEREFORE, WE WILL MOVE FORWARD HAVING NOTED THE PATIENT'S HISTORY OF BRADYCARDIA AND RIGHT BUNDLE BRANCH BLOCK. WE DISCUSSED THE BENEFITS, RISKS AND ALTERNATIVES OF THE INJECTION, AND THE PATIENT WOULD LIKE TO PROCEED. I AM LOOKING FOR LONG-LASTING PAIN RELIEF FROM THIS INJECTION FOR THE PATIENT. DEPENDING ON THE RESULTS, WE MAY CONSIDER A CERVICAL OR THORACIC FACET BLOCK IN THE FUTURE. INSTRUCTIONS WERE GIVEN, QUESTIONS WERE ANSWERED, PATIENT REPORTS UNDERSTANDING AND AGREES WITH THE PLAN. I, KALIE JACKSON, DOCUMENTED THE ABOVE INFORMATION ACTING A SCRIBE FOR DR. WINSTON. I HAVE REVIEWED THE ABOVE DOCUMENT, WRITTEN BY DIAMOND MASON, AND I VERIFY THAT IT IS ACCURATE. DEAR DR. CHACON: THANK YOU FOR YOUR KIND REFERRAL OF MR. LILIAN DODGE. IF YOU WANT TO DISCUSS HIS CASE WITH ME, PLEASE CALL ME AT THE PAIN CENTER AT [phone]. SINCERELY, AYLEEN WINSTON MD PAIN MEDICINE. PREVENTIVE MEDICINE PAIN CLINIC TEACHING: PROCEDURE TEACHING PT GIVEN WRITTEN AND VERBAL EDUCATION ON TRIGGER POINT INJECTIONS. PT ALSO GIVEN WRITTEN AND VERBAL PRE PROCEDURE INSTRUCTIONS. PT VERBALIZES UNDERSTANDING OF ALL EDUCATION AND INSTRUCTIONS. TINO EPSTEIN 06/24/2019 4:10:34 PM > . PROCEDURE CODES FA211 ESTABILISHED PATIENT [facility] FACILITY CHARGE [id number] OFFICE/OUTPATIENT VISIT NEW [id number] CURRENT MEDS W/DOSAGES DOCUMENTED G8730 PAIN ASSESS POS TOOL F/U PLAN DOC DISPOSITION & COMMUNICATION FOLLOW UP REASON: NECK/THORACIC TPI ELECTRONICALLY SIGNED BY AYLEEN WINSTON MD, MD ON 07/06/2019 AT 06:29 PM EST DISCLAIMER : THIS IS A VISIT SUMMARY EXTRACTED FROM THE [employer] CHART. IT IS NOT A COPY OF THE [employer] PROGRESS NOTE. ROSELYN
== END ==
LOC: M PAIN 14:30
PROVIDERS: ATTEND Anesthesiology
DX: M79.18 Myalgia, other site (principal); M47.812 Spondylosis without myelopathy or radiculopathy, cervical region; M47.814 Spondylosis without myelopathy or radiculopathy, thoracic region; M54.2 Cervicalgia; Z86.59 Personal history of other mental and behavioral disorders; G47.00 Insomnia, unspecified; G43.909 Migraine, unspecified, not intractable, without status migrainosus; K21.9 Gastro-esophageal reflux disease without esophagitis; F17.210 Nicotine dependence, cigarettes, uncomplicated; Z91.012 Allergy to eggs; Z91.018 Allergy to other foods; Z79.899 Other long term (current) drug therapy

== ENCOUNTER → 2019-07-21 | Outpatient (CLI) | payer MEDICARE, MEDICAID ==
[~2019-07-21] MED LIST changes: +BUPIVACAINE HCL 0.25% 30 ML VIAL As Ordered ONE; +TRIAMCINOLONE ACETONIDE SUSP 40 MG/ML VIAL (J3301) As Ordered ONE
--- NOTE | 2019-08-09 05:44 | ECWPNPC ---
PATIENT NAME: AVELINA DODGE : 1980 GENDER: MALE VISIT DATE: 07/21/2019 DISCHARGE DATE: 07/21/19958 VISIT LOCKED DATE TIME: PHYSICIAN: AYLEEN WINSTON MD RESOURCE: AYLEEN WINSTON MD REASON FOR APPOINTMENT 1. TPI, THORACIC AREA HISTORY OF PRESENT ILLNESS HISTORY OF PRESENT ILLNESS: PAIN THE PATIENT DESCRIBES THE PAIN... FALL RISK SCREENING: SCREENING :NO FALLS REPORTED IN THE LAST YEAR CURRENT MEDICATIONS TAKING PRAZOSIN HCL 2 MG CAPSULE 1 CAPSULE ORALLY BEFORE BEDTIME, NOTES: 07/20/192329 TAKING CUSTOM DO NOT USE TRAMADOL 50 MG TABLET ONE TAB ORALLY BID NEEDED, NOTES: 07/19/19 TAKING TRAZODONE HCL 300 MG TABLET 2TABLET AT BEDTIME NEEDED ORALLY ONCE A DAY, NOTES: 07/20/192329 TAKING ATIVAN 2 MG TABLET 1 TAB ORALLY FOUR TIMES DAILY NEEDED, NOTES: 07/20/192329 TAKING ADDERALL 30 MG TABLET 2TABLET IN THE MORNING ORALLY ONCE A DAY, NOTES: 07/20/19 0800 TAKING GEODON 80 MG CAPSULE 1 TAB ORALLY TWICE DAILY, NOTES: 07/20/192329 TAKING DEPO-TESTOSTERONE _ SOLUTION 120ML INTRAMUSCULAR WEEKLY, NOTES: 07/20/19 1200 TAKING ZONISAMIDE 100 MG CAPSULE 2 CAPSULE ORALLY ONCE A DAY, NOTES: 07/20/192329 TAKING LORATADINE 10 MG TABLET 1 TABLET NEEDED ORALLY ONCE A DAY, NOTES: NONE RECENTLY TAKING SUMATRIPTAN SUCCINATE 100 MG TABLET 1 TABLET NEEDED ORALLY DAILY, NOTES: MORE THAN 1 WEEKS AGO TAKING PRILOSEC 40 MG CAPSULE DELAYED RELEASE 1 CAPSULE ORALLY ONCE A DAY, NOTES: 07/20/192329 NOT-TAKING OMEPRAZOLE 40 MG CAPSULE DELAYED RELEASE 1 CAP ORALLY BEFORE BEDTIME MEDICATION LIST REVIEWED AND RECONCILED WITH THE PATIENT PAST MEDICAL HISTORY ADHD PTSD TRANSGENDER WITH GENDER REASSIGNMENT GENDER DYSPHORIA ANXIETY DISORDER WITH PANIC ATTACKS AND AGORAPHOBIA BIPOLAR DISORDER 1 WITH PSYCHOSIS BORDERLINE PERSONALITY DISORDER INSOMNIA MIGRANE HEADACHES GERD SOCIAL ANXIETY DISORDER LUMBAR RADICULOPATHY BRADYCARDIA RIGHT BUNDLE BRANCH BLOCK CERVICO-OCCIPITAL NEURALGIA SPONDYLOSIS OF CERVICAL SPINE ALLERGIES EGGS/APPLES/OATS: PT HAS ALLERGY TO EGGS NAUSEA/VOMITING/DIARRHEA - SIDE EFFECTS SEASONAL IC: SEASONAL ALLERGIES - SIDE EFFECTS SURGICAL HISTORY TUBAL LIGATION 2006 CARPAL TUNNEL RELEASE RIGHT 2012 ULNAR NERVE REPAIR RIGHT ELBOW 03/2014 CYST REMOVAL RIGHT WRIST 2008 COMPLETE HYSTERECTOMY/GENDER REASSIGNMENT 2014 BREAST REMOVAL WITH FREE NIPPLE GRAPHS 11/11/2014 FAMILY HISTORY FATHER: , HEPATITIS, DIAGNOSED WITH UNSPECIFIED HEART DISEASE, DIABETES MOTHER: ALIVE, NO ISSUES SIBLINGS: ALIVE SON(S): ALIVE PATERNAL GRAND FATHER: UNSPECIFIED HEART DISEASE PATERNAL GRAND MOTHER: UNSPECIFIED HEART DISEASE 1 SISTER(S) - HEALTHY. 4 SON(S) - HEALTHY. NO KNOWN HX OF BREAST, OVARIAN, OR COLORECTAL CANCER. SOCIAL HISTORY GENERAL: TOBACCO USE ARE YOU A:CURRENT SMOKER HOW OFTEN DO YOU SMOKE CIGARETTES?EVERY DAY HOW MANY CIGARETTES A DAY DO YOU SMOKE?11-20 ARE YOU INTERESTED IN QUITTING?THINKING ABOUT QUITTING PATIENT COUNSELED ON THE DANGERS OF TOBACCO USE AND URGED TO QUIT:01/26/2019 COUNSELED THE PATIENT ON SMOKING CESSATION, EDUCATION [id number]/21/2019 HIV / HEP-C SCREENING HIV TEST OFFERED TO PATIENT:YES DATE OFFERED:02/25/2018 TEST ACCEPTED:NO HEP-C TEST OFFERED TO PATIENT:YES DATE OFFERED:02/25/2018 REASON:PATIENT DECLINED TEST ACCEPTED:NO BROCHURE PROVIDED TO PATIENTNO OTHERS AT HOME: HIS AND ONE SON. HOUSING: [employer] APARTMENT. 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 LANGUAGE LANGUAGES SPOKEN:BELARUSIAN DOMESTIC VIOLENCE DO YOU FEEL SAFE IN YOUR ENVIRONMENT?YES RECREATIONAL DRUG USE DRUG USE?NO EXERCISE: NONE. LEARNING BARRIERS / SPECIAL NEEDS CHANGE FROM LAST VISIT?NO BARRIERS TO LEARNING?NO HEARING IMPAIRED?NO VISION IMPAIRED?YES COGNITIVELY IMPAIRED?NO :CORRECTIVE LENSES READINESS TO LEARN?YES LEARNING PREFERENCES?NO LEARNING CAPABILITIES PRESENT?YES EMOTIONAL BARRIERS?NO SPECIAL DEVICES?NO FORENSIC MATERIALS ENGINEER NEEDED?NO PAIN CLINIC PFS, CLERGY, PUBLIC HEALTH REFERRALS HAS THE PATIENT BEEN EDUCATED REGARDING HIS/HER PLAN OF CARE?YES HAS THE PATIENT BEEN EDUCATED REGARDING PAIN, THE RISK FOR PAIN, THE IMPORTANCE OF EFFECTIVE PAIN MANAGEMENT, AND THE PAIN ASSESSMENT PROCESS?YES LATEX QUESTIONNAIRE LATEX ALLERGY : HAVE YOU EVER DEVELOPED ANY TYPE OF REACTION AFTER HANDLING LATEX PRODUCTS SUCH RUBBER GLOVES, CONDOMS, DIAPHRAGMS, BALLOONS, SOCKS, OR UNDERWEAR?NO LATEX ALLERGY : HAVE YOU EVER DEVELOPED ANY TYPE OF REACTION DURING OR AFTER DENTAL APPOINTMENT, VAGINAL/RECTAL EXAMINATION, SURGICAL PROCEDURE, OR ANY OTHER EXPOSURE?NO DATE ASKED : 06/24/2019 LATEX RISK : HAVE YOU EVER HAD ANY DIFFICULTY BREATHING OR HIVES AFTER EATING OR HANDLING ANY FRUITS, OR VEGETABLES; SUCH KIWI, BANANAS, STONE FRUITS, OR CHESTNUTSNO LATEX RISK : DO YOU HAVE A PREVIOUS PERSONAL HISTORY OF MORE THAN NINE SURGERIES, SPINA BIFIDA, OR REPEATED CATHERIZATIONS? NO LATEX RISK : ARE YOU FREQUENTLY EXPOSED TO LATEX PRODUCTS IN YOUR OCCUPATION?NO CAFFEINE CAFFEINE USE?YES COFFEE,SODA ONE A DAY ADVANCE DIRECTIVE ADVANCE DIRECTIVE DISCUSSED WITH PATIENT:YES PT HAS HCP FOR KUN DODGE [phone] [employer] [id number] ATHEIST MARITAL STATUS: . ALCOHOL SCREENING DID YOU HAVE A DRINK CONTAINING ALCOHOL IN THE PAST YEAR?NO POINTS0 INTERPRETATIONNEGATIVE OCCUPATION: STUDENT. SEXUAL HX HAD SEX IN THE LAST 12 MONTHS (VAGINAL, ORAL, OR ANAL)?YES USE PROTECTION?NO HAVE YOU EVER HAD AN STD?NO [place] IN [place] 06/24/2019 1500 BV. HOSPITALIZATION/MAJOR DIAGNOSTIC PROCEDURE CELLULITIS 02/2015 REVIEW OF SYSTEMS REVIEWED BY: PROVIDER: . CONSTITUTIONAL: ANY CHANGE IN YOUR MEDICAL CONDITION? NO . CHILLS NO . FEVER NO . INFECTION: DO YOU HAVE NEW INFECTIONS? NO . DO YOU HAVE HISTORY OF MRSA? NO . MUSCULOSKELETAL: ANY NEW PATTERNS OF PAIN OR NUMBNESS? YES - LEFT THIGH NUMBNESS FOR ABOUT A MONTH . GASTROENTEROLOGY: ANY NEW CHANGE IN BOWEL CONTROL? NO . GENITOURINARY: ANY NEW CHANGE IN BLADDER CONTROL? NO . IS THERE A CHANCE YOU COULD BE ? NO . HEMATOLOGY/LYMPH: DO YOU TAKE ANY BLOOD THINNERS? (FOR EXAMPLE- COUMADIN, PLAVIX, AGGRENOX, PLATEL, PRADAXA, OR XARELTO) NO . WHEN WAS YOUR LAST DOSE? DATE: TIME: . NEUROLOGY: HAVE YOU FALLEN IN THE PAST 12 MONTHS? NO . ANY NEW EXTREMITY NUMBNESS OR WEAKNESS? YES - LEFT THIGH NUMBNESS FOR ABOUT A MONTH . CARDIOLOGY: DO YOU HAVE A PACEMAKER OR DEFIBRILLATOR? NO . RESPIRATORY: HAVE YOU BEEN SICK IN THE PAST WEEK? NO . FEVER NO . FLU LIKE SYMPTOMS? NO . COUGH NO . INTEGUMENTARY: DO YOU HAVE ANY RASHES OR OPEN SORES? NO . ALLERGIC/IMMUNO: ARE YOU ALLERGIC TO IV DYE? NO . ANY NEW ALLERGIES? NO . PSYCHIATRIC: DO YOU HAVE THOUGHTS OF HURTING YOURSELF OR SOMEONE ELSE? NO . ARE YOU ABUSED, NEGLECTED, OR IN AN UNSAFE ENVIRONMENT? NO . ENDOCRINOLOGY: ARE YOU DIABETIC? NO . OTHER: DO YOU NEED ANY PRESCRIPTIONS? NO . IF YES, PLEASE LIST: ____ . ANY NEW PROBLEMS WITH YOUR MEDICATIONS? NO . WHEN DID YOU LAST EAT? 07/20/19 1630 . WHEN DID YOU LAST DRINK? 07/20/19 2330 . WHAT DID YOU LAST DRINK? TEA . NAME OF PERSON DRIVING YOU HOME? KUN DODGE . DO YOU HAVE ANY OTHER QUESTIONS OR CONCERNS NO . VITAL SIGNS WT 187.4 LBS, HT 68 IN, BMI 28.49 INDEX, BP 107/63 MM HG, HR 117 /MIN, RR 18 /MIN, TEMP 97.8 F, OXYGEN SAT % 96%, NA INITIALS AW 0845, REVIEWED BY: LS. ASSESSMENTS MYALGIA, OTHER SITE - M79.18 (PRIMARY) PROCEDURES PN TRIGGER POINT INJECTION WITH STEROIDS PRE PROCEDURE DIAGNOSIS 1. MYALGIA 2. PAIN AT BILATERAL NECK AREA. POST PROCEDURE DIAGNOSIS 1. MYALGIA 2. PAIN AT BILATERAL NECK AREA. PROCEDURE TRIGGER POINT INJECTION AT RIGHT AND LEFT NECK AREA. SURGEON DR. AYLEEN WINSTON TOWER OPERATOR NONE ANESTHESIA LOCAL PRE PROCEDURE NOTE THE PATIENT HAS A HISTORY OF CHRONIC PAIN AT THE RIGHT AND LEFT NECK AREA. I EVALUATE THE PATIENT AND REVIEWED THE CHART. THERE IS EVIDENCE OF BANDS OF TISSUE WITH RESTRICTION OF MOVEMENT AND PRESENCE OF TRIGGER POINT AT THE AFFECTED AREA. I WENT OVER THE RISKS, ALTERNATIVES, AND BENEFITS ASSOCIATED WITH THIS PROCEDURE. THE PATIENT WOULD LIKE TO PROCEED AND GIVE CONSENT TO PERFORMED THE PROCEDURE. THE PATIENT DENIES UNEXPLAINABLE WEIGHT LOSS, FEVER, CHILLS, OR NEW CHANGES IN URINARY OR BOWEL CONTROL DESCRIPTION OF PROCEDURE THE PATIENT WAS BROUGHT TO THE PROCEDURE ROOM AND PLACED IN THE SITTING POSITION. THE AREA WAS CLEANED WITH ALCOHOL. THE PROCEDURE WAS DONE USING ASEPTIC STERILE TECHNIQUE. I CHECKED LATERALITY AND THE LEVEL WHERE THE PROCEDURE WAS GOING TO BE PERFORMED WITH THE PATIENT AND THE SUPPORTING STAFF AT THE MOMENT OF THE TIME OUT IN THE PROCEDURE ROOM. USING A 25-GAUGE NEEDLE, TRIGGER POINTS WERE INJECTED AT THE RIGHT AND LEFT NECK AREA WITH A TOTAL OF 40 ML OF BUPIVACAINE 0.25% AND KENALOG 40 MG. THERE WAS NO EVIDENCE OF BLOOD, PARESTHESIA OR CEREBROSPINAL FLUID DURING THE PROCEDURE. THE PATIENT WAS SENT TO THE RECOVERY ROOM. THE PATIENT WAS MOVING THE EXTREMITIES AND DOING WELL. THERE WAS NO COMPLICATION DURING THE PROCEDURE POST PROCEDURE NOTE THE PATIENT WILL BE SEEN IN A FOLLOW UP IN THE NEXT FEW WEEKS. INSTRUCTIONS WERE GIVEN, QUESTIONS WERE ANSWERED, AND THE PATIENT EXPRESSED UNDERSTANDING AND AGREES WITH THE PLAN. I, QUIANA MESSER, DOCUMENTED THE ABOVE INFORMATION ACTING A SCRIBE FOR DR. WINSTON. I HAVE REVIEWED THE ABOVE DOCUMENT, WRITTEN BY QUIANA MESSER SCRIBKiara AND I VERIFY THAT IT IS ACCURATE. PROCEDURE CODES 69376 INJ TRIGGER POINT 06/09 MUSCL 6045F RADXPS IN END [id number] PXD DISPOSITION & COMMUNICATION FOLLOW UP 3 WEEKS ELECTRONICALLY SIGNED BY AYLEEN WINSTON MD, MD ON 08/08/2019 AT 09:27 AM EST DISCLAIMER : THIS IS A VISIT SUMMARY EXTRACTED FROM THE [email or web address] CHART. IT IS NOT A COPY OF THE [email or web address] PROGRESS NOTE. MTDD
== END ==
LOC: M PAIN 08:30
PROVIDERS: ATTEND Anesthesiology
DX: M79.18 Myalgia, other site (principal)
CPT/HCPCS: 20552; J3301

== ENCOUNTER → 2020-01-15 | Outpatient (REF) | payer MEDICARE, MEDICAID ==
[~2020-01-15] MED LIST changes: -ASPI81TA85 PO; +ASPI81TA86 PO; -BUPIVACAINE HCL 0.25% 30 ML VIAL As Ordered ONE; -TRIAMCINOLONE ACETONIDE SUSP 40 MG/ML VIAL (J3301) As Ordered ONE
[2020-02-11 22:46] LABS: BASO # 0.1 10^3/uL (0.0-0.2); BASO % 0.8 % (0.0-1.0); EOS # 0.3 10^3/uL (0.0-0.5); EOS % 5.4 % (0.0-3.0); HEMATOCRIT 49.4 % (42.0-52.0); HEMOGLOBIN 16.8 g/dl (13.5-17.5); LYMPH % 32.9 % (24.0-44.0); MEAN CORPUSCULAR HEMOGLOBIN 35.2 pg (27.0-33.0); MEAN CORPUSCULAR VOLUME 103.6 fl (80.0-96.0); MONO # 0.4 10^3/uL (0.0-0.8); MONO % 6.9 % (0.0-5.0); NEUTROPHILS # 3.3 10^3/uL (1.5-8.5); NEUTROPHILS % 53.7 % (36.0-66.0); PLATELET COUNT, AUTOMATED 232 10^3/uL (150-450); RED BLOOD COUNT 4.77 10^6/uL (4.30-6.10); WHITE BLOOD COUNT 6.1 10^3/uL (4.0-10.0)
[2020-02-16 08:17] LABS: ALBUMIN 4.1 GM/DL (3.2-5.2); ALT/SGPT 47 U/L (12-78); BILIRUBIN,DIRECT 0.1 MG/DL (0.0-0.2); BILIRUBIN,TOTAL 0.5 MG/DL (0.2-1.0); LUTEINIZING HORMONE < 0.1 mIU/mL (1.5-9.3); TESTOSTERONE 580 NG/DL (241-827); TOTAL PROTEIN 7.1 GM/DL (6.4-8.2)
== END ==
LOC: M WUC 11:07
PROVIDERS: ATTEND Internal Medicine Endocrinology, Diabetes & Metabolism
DX: F64.0 Transsexualism (principal)

== ENCOUNTER → 2020-09-11 | Outpatient (CLI) | payer MEDICARE, MEDICAID ==
[2020-09-11 17:29] LABS: ALBUMIN 3.7 GM/DL (3.2-5.2); ALT/SGPT 47 U/L (12-78); BILIRUBIN,DIRECT 0.1 MG/DL (0.0-0.2); BILIRUBIN,TOTAL 0.2 MG/DL (0.2-1.0); TOTAL PROTEIN 6.5 GM/DL (6.4-8.2)
[2020-09-11 17:34] LABS: LUTEINIZING HORMONE < 0.1 mIU/mL (1.5-9.3); TESTOSTERONE 293 NG/DL (241-827)
[2020-09-11 17:37] LABS: BASO % 0.7 % (0.0-1.0); EOS # 0.3 10^3/uL (0.0-0.5); EOS % 4.3 % (0.0-3.0); HEMATOCRIT 48.2 % (42.0-52.0); HEMOGLOBIN 16.3 g/dl (13.5-17.5); LYMPH # 1.6 10^3/uL (1.5-5.0); LYMPH % 27.1 % (24.0-44.0); MEAN CORPUSCULAR HGB CONC 33.8 g/dl (32.0-36.5); MEAN CORPUSCULAR VOLUME 97.6 fl (80.0-96.0); MONO # 0.6 10^3/uL (0.0-0.8); MONO % 10.4 % (2.0-8.0); NEUTROPHILS # 3.4 10^3/uL (1.5-8.5); NEUTROPHILS % 57.2 % (36.0-66.0); PLATELET COUNT, AUTOMATED 223 10^3/uL (150-450); RED BLOOD COUNT 4.94 10^6/uL (4.30-6.10)
== END ==
LOC: M WUC 10:39
PROVIDERS: ATTEND Internal Medicine Endocrinology, Diabetes & Metabolism
DX: F64.0 Transsexualism (principal)

== ENCOUNTER → 2020-09-21 | Outpatient (CLI) | payer MEDICARE, MEDICAID ==
--- NOTE | 2020-09-21 14:44 | REP ---
INDICATION: PAIN. COMPARISON: None. TECHNIQUE: Seven views full cervical spine series. FINDINGS: Vertebral bodies are normal in height and well aligned with no fracture or dislocation. There is normal cervical lordosis. There is no subluxation with flexion and extension. There is no prevertebral soft tissue swelling. Disc spaces are well preserved. I do not see radiographic evidence of significant neural foraminal narrowing bilaterally. IMPRESSION: Negative cervical spine series. <Electronically signed by Pierre Ward > 09/21/20 [id number]
--- NOTE | 2020-09-21 14:46 | REP ---
INDICATION: PAIN. COMPARISON: Chest radiographs 01/27/2018. TECHNIQUE: Five AP and lateral views thoracic spine. FINDINGS: No compression fracture. There is no malalignment, with normal thoracic kyphosis. There is minimal narrowing and subchondral sclerosis of the lower thoracic disc levels. The posterior elements are intact. IMPRESSION: Mild degenerative changes lower thoracic spine. <Electronically signed by Pierre Ward > 09/21/20 [id number]
--- NOTE | 2020-09-21 14:49 | REP ---
INDICATION: PAIN. COMPARISON: None. TECHNIQUE: Six views lumbosacral spine. FINDINGS: There is no compression fracture or malalignment. There is normal lumbar lordosis. A small Schmorl's node is seen at the inferior endplate of L2 and at the superior endplates of L4 and L5. There is moderate disc space narrowing and subchondral sclerosis at L5-S1, with sclerosis and spurring at the posterior facet joints at that level. IMPRESSION: Moderate degenerative changes L5-S1 level. <Electronically signed by Pierre Ward > 09/21/20 [id number]
== END ==
LOC: M WUC 13:51
PROVIDERS: ATTEND Psychiatry & Neurology Neurology
DX: M54.2 Cervicalgia (principal); M51.37 Other intervertebral disc degeneration, lumbosacral region; M51.34 Other intervertebral disc degeneration, thoracic region

== ENCOUNTER → 2020-09-28 | Outpatient (CLI) | payer MEDICARE, MEDICAID ==
--- NOTE | 2020-09-28 14:53 | REP ---
INDICATION: SOB COMPARISON: 01/27/2018 TECHNIQUE: PA and lateral. FINDINGS: The mediastinum and cardiac silhouette are normal. The lung becerril are clear and without acute consolidation, effusion, or pneumothorax. The skeletal structures are intact and normal. IMPRESSION: No acute cardiopulmonary process. <Electronically signed by Teo Aleman > 09/28/20 [id number]
== END ==
LOC: M WUC 14:27
PROVIDERS: ATTEND Internal Medicine
DX: R06.02 Shortness of breath (principal)

== ENCOUNTER → 2020-11-14 | Outpatient (CLI) | payer MEDICARE, MEDICAID ==
--- NOTE | 2020-11-14 15:47 | REPVR ---
PROCEDURE INFORMATION: Exam: MR Lumbar Spine Without Contrast. Exam date and time: 11/14/2020 1:58 PM Age: 40 years old Clinical indication: Low back pain; Additional info: Lbp TECHNIQUE: Imaging protocol: Multiplanar magnetic resonance images of the lumbar spine without contrast. COMPARISON: CR SPINE LS COMPLETE 09/21/2020 2:22 PM FINDINGS: Vertebrae: Unremarkable. Spinal cord: Normal signal. No cord compression. Discs/Spinal canal/Neural foramina: L1/2: No acute abnormality. L2/3: There is no acute abnormality. L3/4: Minimal central disc bulging. No protrusion or extrusion. Mild foraminal narrowing due to spurring bilaterally. No stenosis. L4/5: No spinal stenosis. No disc protrusion or extrusion. Minimal foraminal narrowing due to spurring bilaterally. L5/S1: There is right paracentral disc small extrusion without spinal stenosis. It is subligamentous. The left foramina is moderately narrowed due to a small foraminal protrusion. The right foramina demonstrates a small extension of disc material as well as spurring with moderate narrowing. Moderate desiccation. Soft tissues: Unremarkable. IMPRESSION: Abnormal L5/S1 level as above. Electronically signed by: Hunter Walsh On 11/14/2020 15:47:06 PM
== END ==
LOC: M PLARAD 12:35
PROVIDERS: ATTEND Physician Assistant
DX: M54.5 Low back pain (principal)

== ENCOUNTER → 2020-12-24 | Outpatient (CLI) | payer MEDICARE, MEDICAID ==
[~2020-12-24] MED LIST changes: +OMEP40CA4 PO; -OMEP40CA97 PO
[2020-12-24 12:48] LABS: BASO # 0.1 10^3/uL (0.0-0.2); BASO % 0.7 % (0.0-1.0); EOS # 0.2 10^3/uL (0.0-0.5); EOS % 3.1 % (0.0-3.0); HEMATOCRIT 46.4 % (42.0-52.0); HEMOGLOBIN 16.6 g/dl (13.5-17.5); LYMPH # 1.7 10^3/uL (1.5-5.0); LYMPH % 23.6 % (24.0-44.0); MEAN CORPUSCULAR HEMOGLOBIN 35.9 pg (27.0-33.0); MEAN CORPUSCULAR HGB CONC 35.8 g/dl (32.0-36.5); MEAN CORPUSCULAR VOLUME 100.4 fl (80.0-96.0); MONO # 0.7 10^3/uL (0.0-0.8); NEUTROPHILS # 4.5 10^3/uL (1.5-8.5); NEUTROPHILS % 62.5 % (36.0-66.0); PLATELET COUNT, AUTOMATED 241 10^3/uL (150-450); RED BLOOD COUNT 4.62 10^6/uL (4.30-6.10); WHITE BLOOD COUNT 7.1 10^3/uL (4.0-10.0)
[2020-12-24 13:27] LABS: LUTEINIZING HORMONE < 0.1 mIU/mL (1.5-9.3); TESTOSTERONE 619 NG/DL (241-827)
== END ==
LOC: M WUC 09:53
PROVIDERS: ATTEND Internal Medicine Endocrinology, Diabetes & Metabolism
DX: E29.1 Testicular hypofunction (principal)

== ENCOUNTER 2021-02-28 12:01 | Observation (INO) | payer MEDICARE, MEDICAID ==
[~2021-02-28] VITALS: Ht 172.7 cm; Wt 94.1 kg
[2021-02-28 13:27] LABS: HEMATOCRIT 41.7 % (42.0-52.0); HEMOGLOBIN 15.8 g/dl (13.5-17.5); MEAN CORPUSCULAR HEMOGLOBIN 35.5 pg (27.0-33.0); MEAN CORPUSCULAR VOLUME 93.7 fl (80.0-96.0); PLATELET COUNT, AUTOMATED 231 10^3/uL (150-450); RED BLOOD COUNT 4.45 10^6/uL (4.30-6.10); WHITE BLOOD COUNT 9.2 10^3/uL (4.0-10.0)
[2021-02-28 13:29] LABS: MEAN CORPUSCULAR HGB CONC 37.9 g/dl (32.0-36.5)
[2021-02-28] MEDS ORDERED: NS 1,000 ML IV ONE (13:30)
[2021-02-28 13:33] LABS: ACETAMINOPHEN LEVEL < 2.0 UG/ML (10.0-30.0); ALT/SGPT 77 U/L (12-78); BILIRUBIN,DIRECT 0.3 MG/DL (0.0-0.2); BILIRUBIN,TOTAL 1.4 MG/DL (0.2-1.0); BLOOD UREA NITROGEN 17 MG/DL (7-18); CALCIUM LEVEL 9.6 MG/DL (8.5-10.1); CARBON DIOXIDE LEVEL 20 MEQ/L (21-32); CHLORIDE LEVEL 105 MEQ/L (98-107); CREATININE FOR GFR 1.11 MG/DL (0.70-1.30); ETHYL ALCOHOL (ETHANOL) < 0.003 % (0.000-0.010); GLOMERULAR FILTRATION RATE > 60.0 (>60); GLUCOSE, FASTING 99 MG/DL (70-100); POTASSIUM SERUM 3.4 MEQ/L (3.5-5.1); SALICYLATE LEVEL < 1.7 MG/DL (5.0-30.0); SODIUM LEVEL 138 MEQ/L (136-145); TOTAL PROTEIN 6.9 GM/DL (6.4-8.2)
[2021-02-28] MEDS ORDERED: LORazepam 2 MG/ML VIAL IV STA (13:37)
[2021-02-28] MEDS ORDERED: LORazepam 1 MG TAB PO STA (13:54)
[2021-02-28] MEDS ORDERED: MIDAZOLAM 5MG/ML 1ML VIAL (J2250 PER 1MG) As Ordered ONE (13:57)
[2021-02-28] MEDS ORDERED: MIDAZOLAM 5MG/ML 1ML VIAL (J2250 PER 1MG) IM ONE (14:00)
[2021-02-28 14:57] LABS: CK-MB VALUE MASS 29.4 NG/ML (<3.6); CPK CREATINE PHOSPHOKINASE 2351 U/L (39-308); MB/CK RELATIVE INDEX 1.25 (< OR =4); TROPONIN I < 0.02 NG/ML (< 0.10)
[2021-02-28 15:47] LABS: AMPHETAMINES LEVEL URINE POSITIVE (NEGATIVE); BARBITURATES URINE NEGATIVE (NEGATIVE); BENZODIAZEPINES URINE NEGATIVE (NEGATIVE); CANNABINOIDS URINE NEGATIVE (NEGATIVE); COCAINE METABOLITE URINE NEGATIVE (NEGATIVE); METHADONE URINE NEGATIVE (NEGATIVE); OPIATES URINE NEGATIVE (NEGATIVE); PHENCYCLIDINE URINE NEGATIVE (NEGATIVE)
[2021-02-28] MEDS ORDERED: POTASSIUM CHLORIDE 10% LIQ 20 MEQ/15 ML UDC PO ONE (16:35)
[2021-02-28] MEDS: NS 1,000 ML IV SCH ×2 (17:26→21:53)
--- NOTE | 2021-02-28 17:35 | REP ---
INDICATION: chest pain COMPARISON: 09/28/2020. TECHNIQUE: PA/Lateral FINDINGS: Lungs: Clear, no infiltrate. Heart: Normal in size. Mediastinum: Mediastinal silhouette unremarkable. Pleural angles: Unremarkable.. Bones and soft tissues: Unremarkable. IMPRESSION: No acute pulmonary disease. <Electronically signed by Pierre Ward > 02/28/21 [id number]
--- NOTE | 2021-02-28 17:50 | REPVR ---
PROCEDURE INFORMATION: Exam: CT Head Without Contrast Exam date and time: 02/28/2021 2:00 PM Age: 40 years old Clinical indication: Altered mental status/memory loss TECHNIQUE: Imaging protocol: Computed tomography of the head without contrast. Radiation optimization: All CT scans at this facility use at least one of these dose optimization techniques: automated exposure control; mA and/or kV adjustment per patient size (includes targeted exams where dose is matched to clinical indication); or iterative reconstruction. COMPARISON: CR SPINE CERVICAL COMPL 09/21/2020 2:06 PM FINDINGS: Brain: No hemorrhage or edema seen. Mild volume loss in the cerebellar vermis, atypical for age. Cerebral ventricles: No ventriculomegaly. Paranasal sinuses: Visualized sinuses are unremarkable. No fluid levels. Mastoid air cells: Visualized mastoid air cells are well aerated. Bones/joints: Unremarkable. No acute fracture. Soft tissues: Unremarkable. IMPRESSION: No acute intracranial abnormality seen. Electronically signed by: Sana Asif On 02/28/2021 17:50:19 PM
[2021-02-28] MEDS ORDERED: ACETAMINOPHEN TAB 650MG DOSE (2X325MG) PO PRN (18:20)
[2021-02-28] MEDS ORDERED: LORazepam 2 MG/ML VIAL IV PRN (18:35)
[2021-02-28 20:12] LABS: RSV AMPLIFICATION NEGATIVE (NEGATIVE)
[2021-02-28] MEDS ORDERED: MAGN250T11 PO (21:25)
[2021-02-28] MEDS ORDERED: ADDE30CA3 PO (21:25)
[2021-02-28] MEDS ORDERED: HOME MED LIST COMPLETE! XX SCH (21:25)
[2021-02-28] MEDS ORDERED: GABA-1171 PO (21:25)
[2021-02-28] MEDS ORDERED: VITA-245 PO (21:25)
[2021-02-28] MEDS ORDERED: TRAZ150T90 PO (21:25)
[2021-02-28] MEDS ORDERED: ZIPR80CA12 PO (21:25)
[2021-02-28] MEDS ORDERED: ADDE30TA PO (21:25)
[2021-02-28] MEDS ORDERED: LORA-674 PO (21:25)
[2021-02-28 21:35] VITALS: BP 135/67
[2021-03-01] VITALS (14 sets, daily range): BP systolic 116–140; BP diastolic 56–86
--- NOTE | 2021-03-01 00:14 | ECGEPIP ---
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
[2021-03-01] MEDS: NS 1,000 ML IV SCH ×4 (03:22→20:13)
--- NOTE | 2021-03-01 03:48 | IPNPDOC ---
Text Note Date of Service The patient was seen on 03/01/21. NOTE Code 25 initiated and shortly canceled. Patient seen at bedside -reportedly patient had ripped off his IV and started acting aggressive towards staff when code was called, even making physical contact with nursing staff's hand. However, after removing IV patient and after staff called code- pt promptly laid back in bed. Patient seen laying in bed. He has a frustrated/irritable affect. He reports that he " does not feel well". He describes intermittent dizziness and he is does not want IV fluids. He does describe having some exacerbation of a pinched nerve in his lumbar area that radiates down his left leg. He typically takes gabapentin for this and would like some. Patient instructed regarding safety measures given his symptoms-the goal is to obtain a set of vitals first and then can consider further medications. Of note, patient does have elevated CK without elevated creat; patient was explained regarding the need for IV fluids so as not to progress to issues with his kidneys and some of the medications may be harsh on the kidneys and thus we may not be giving patient his home medications, but would give other medicines that are safe for him to take in order to manage any symptoms; but first step is for vitals. Patient reports that he is agreeable to vital signs and that we can adjust care plan from there. Shortly after discussion, patient reportedly again refusing intermittent interventions from nurse. He refused vital signs. At present, patient is on hold for suicide attempt. There is a sitter in hospital room. Patient does have right to refuse treatment. Patient did also have tox positive for methamphetamines which may also be contributing to patient's sensation of irritability and mood swings. We will give time for patient to have decreased stimuli and offer again for therapies as pt vocalizes understanding of consequences with refusal. Encourage de-escalation techniques. Staff and nursing metalizing supervisor at bedside in agreement of plan. VS,Fishbone, I+O VS, Fishbone, I+O Laboratory Tests 02/28/21 12:30 02/28/21 12:40 Vital Signs Date Time Temp Pulse Resp B/P (MAP) Pulse Ox O2 Delivery O2 Flow Rate FiO2 02/28/21 21:35 98.0 69 19 135/67 (89) 100 Room Air 02/28/21 16:38 4.0 I&O- Last 24 Hours up to 6 AM 03/01/21 06:00 Intake Total 1355 ml Output Total 200 ml Balance 1155 ml QUIANA CARDOSO NP Mar 01, 2021 02:26
[2021-03-01] MEDS ORDERED: LORazepam 2 MG/ML VIAL IM STA (05:14)
[2021-03-01] MEDS ORDERED: LORazepam 2 MG/ML VIAL IV STA (05:14)
[2021-03-01] MEDS ORDERED: HALOPERIDOL 5MG/ML VIAL (J1630 PER 1) IM STA (05:17)
[2021-03-01] MEDS ORDERED: diphenhydrAMINE 50MG/ML VIAL (J1200) IM STA (05:17)
--- NOTE | 2021-03-01 05:24 | IPNPDOC ---
Text Note Date of Service The patient was seen on 03/01/21. NOTE Pt unfortunately more agitated. CODE 25 called. Pt was seen to be drinking sa line and hoarding equipment in bed. Pt began pulling and fighting with staff with items in room/ equipment when they attempted to stop him from doing this. Pt seen at bedside tightly holding equipment and refusing to return it. He then wrapped o2 tubing around his neck to attempt to tighten around his neck. Ordered ativan, haldol, benadryl and restraints given his agitation and active methods to self harm as well as him threatening staff. WCTM, de-escalate restraints as soon as able. Sitter is at bedside. Restraint documentation to be initiated per policy. VS,Fishbone, I+O VS, Fishbone, I+O Laboratory Tests 02/28/21 12:30 02/28/21 12:40 Vital Signs Date Time Temp Pulse Resp B/P (MAP) Pulse Ox O2 Delivery O2 Flow Rate FiO2 02/28/21 21:35 98.0 69 19 135/67 (89) 100 Room Air 02/28/21 16:38 4.0 I&O- Last 24 Hours up to 6 AM 03/01/21 06:00 Intake Total 1355 ml Output Total 200 ml Balance 1155 ml QUIANA CARDOSO [employer] WRESTLER Mar 01, 2021 05:24
[2021-03-01] MEDS ORDERED: LORATADINE 10 MG TAB PO PRN (07:25)
--- NOTE | 2021-03-01 07:50 | HPEPDOC ---
[facility] Medical History & Physical Date of Admission Feb 28, 2021 Date of Service: Feb 28, 2021 Attending Physician: NATY GREGORY MD History and Physical CHIEF COMPLAINT: Presented himself to the ED reporting suicidal ideation HISTORY OF PRESENTING ILLNESS: 40-year-old transgender male, genotype female, with a history of GERD, ADHD, bipolar, anxiety, PSUD who presented to the ED reporting suicidal ideation seeking psychiatric evaluation and treatment and when the ED provider came in to evaluate him he was acting bizzare, reporting that he did not know why he was here, became agitated, and reported that he did crystal meth yesterday. He denied any chest pain, abdominal pain, SOB, fever, chills, was tangential, restless, fidgety and had a 1:1 sitter ordered for the bizzare behavior and reported suicidality. Shortly after evaluation the team was urgently called bythe sitter to the bedside as he had tied his cords around his neck and was trying to strangle himself and had to struggle to remove the tight wrapped cord. He was given midazolam with good effect. CT head revealed no acute pathology as did CXR. Labs were notable for CK 2351, Cr was at his baseline of 1.11, na 138, K 3.4 (was repleted with 40 PO K), WBC 9.2, hgb 15.8, platelets 231, TSH 1.24, AST 77, ALT 54. He is now being admitted to medicine of rhabdomyolysis i/s/o crystal meth use with associated agitation and suicidal ideation. PAST MEDICAL HISTORY: Pancreatitis secondary to ETOH Fatty Liver GERD ADHD Bipolar disorder Anxiety posterior manner stress disorder Small bowel obstruction PAST SURGICAL HISTORY: Hysterectomy ulnar nerve carpal tunnel surgery breast reduction tubal ligation CURRENT MEDICATIONS: See below ALLERGIES: See below SOCIAL HISTORY: Smokes half a pack a day 20 years. No alcohol or illicit drug use. FAMILY HISTORY: Gallbladder disease and appendicitis REVIEW OF SYSTEMS: restlessness, tangential, unable to get a complete ROS outside of denying chest pain and abdominal pain. PHYSICAL EXAMINATION: VITAL SIGNS: See Below. General: No acute distress, now resting, but becomes restless abruptly. HEENT: Moist mucous membranes. NCAT Neck: No JVD or lymphadenopathy Cardiac: RRR, No murmurs/rubs or gallops Pulm: Clear to auscultation b/l. No wheezing, rhonchi Abd: Normoactive bowel sounds, soft, NTND Ext: No edema or cyanosis Psych: confused, restless, knows self LABORATORY DATA/IMAGING STUDIES/MICROBIOLOGY: Reviewed. Please see below for full details ASSESSMENT AND PLAN: 40-year-old transgender male, genotype female, with a history of GERD, ADHD, bipolar, anxiety, PSUD who presented to the ED reporting suicidal ideation seeking psychiatric evaluation now being admitted to medicine of rhabdomyolysis i/s/o crystal meth use with associated agitation and suicidal ideation. Rhabdomyolysis i/s/o crystal meth use with associated agitation -s/p 1L NS bolus, continue NS at 150cc/hr -strict I/Os -check CK and BMP with AM labs -PRN IV ativan for agitation Suicidal ideation i/s/o illicit intoxication with background bipolar -1:1 sitter -psych consult when close to medical clearance Crystal meth use w/ agitation -telemetry -PRN ativan for agitation -1:1 sitter -PCU at least overnight ADHD -hold home Adderall while intoxicated with crystal meth BIPOLAR -chronic, hold meds anxiety -holding home PO ativan and will use the IV PRN for agitation for now diet: Regular dvt prophylaxis: heparin SC disposition: Psych consult in the morning Vital Signs Vital Signs Date Time Temp Pulse Resp B/P (MAP) Pulse Ox O2 Delivery O2 Flow Rate FiO2 02/28/21 17:43 88 99 Room Air 02/28/21 17:30 122/83 (96) 02/28/21 16:58 16 02/28/21 16:38 4.0 02/28/21 12:02 97.1 Laboratory Data Labs 24H Laboratory Tests 2 02/28/21 12:30: Anion Gap 13, Glomerular Filtration Rate > 60.0, Calcium Level 9.6, Total Bilirubin 1.4H, Direct Bilirubin 0.3H, Aspartate Amino Transf (AST/SGOT) 88H, Alanine Aminotransferase (ALT/SGPT) 77, Alkaline Phosphatase 54, Total Protein 6.9, Albumin 4.0, Albumin/Globulin Ratio 1.4, Thyroid Stimulating Hormone (TSH) 1.240, Salicylates Level < 1.7L, Acetaminophen Level < 2.0L, Ethyl Alcohol Level < 0.003 02/28/21 12:40: Nucleated Red Blood Cells % (auto) 0.0 02/28/21 14:07: Total Creatine Kinase 2351H, Creatine Kinase MB 29.4H, Creatine Kinase MB Relative Index 1.25, Troponin I < 0.02 02/28/21 14:30: Urine Opiates Screen NEGATIVE, Urine Methadone Screen NEGATIVE, Urine Barbiturates Screen NEGATIVE, Urine Phencyclidine Screen NEGATIVE, Urine Amphetamines Screen POSITIVEH, Urine Benzodiazepines Screen NEGATIVE, Urine Cocaine Metabolite Screen NEGATIVE, Urine Cannabinoids Screen NEGATIVE CBC/BMP Laboratory Tests 02/28/21 12:30 02/28/21 12:40 Home Medications Scheduled Dextroamphetamine/Amphetamine (Adderall Xr 30 mg Capsule) 30 Mg Cap.er.24h, 1 CAP PO DAILY Dextroamphetamine/Amphetamine (Adderall 30 mg Tablet) 30 Mg Tablet, 30 MG PO DAILY TAKES AT NOON Gabapentin (Gabapentin) 100 Mg Capsule, 100 MG PO TID Lorazepam (Lorazepam) 2 Mg Tab, 2 MG PO QID Magnesium Oxide (Magnesium Oxide) 250 Mg Tablet, 250 MG PO DAILY Omeprazole (Omeprazole) 40 Mg Cap, 40 MG PO QHS Prazosin Hcl (Prazosin HCl) 2 Mg Cap, 2 MG PO QHS Testosterone Cypionate (Testosterone Cypionate) 200 Mg/Ml Inj, 100 MG IM QWEEK MONDAYS Trazodone HCl (Trazodone HCl) 150 Mg Tablet, 150 MG PO QHS Vitamin E (Vitamin E) 400 Unit Capsule, 400 UNIT PO DAILY Ziprasidone HCl (Ziprasidone HCl) 80 Mg Capsule, 160 MG PO QHS Scheduled PRN Loratadine (Loratadine) 10 Mg Tablet, 10 MG PO DAILY PRN for ALLERGY SYMPTOMS Allergies Coded Allergies: SEASONAL ALLERGIES (Unverified Allergy, Unknown, 11/26/17) egg (Verified Adverse Reaction, Unknown, INTOLERANCE, 02/28/21) A-FIB/CHADSVASC A-FIB History Current/History of A-Fib/PAF?: No Current PO Anticoag Therapy: No Age/Risk Factor Scoring CHADSVASC: CHADSVASC Response (Comments) Value Age Risk Factor Age < 65 years old 0 Gender Risk Factor Male 0 Hx of CHF No 0 Hx of HTN No 0 Hx of Stroke/TIA/or VTE No 0 Hx of Diabetes No 0 Hx of Vascular Disease No 0 Total 0 Treatment Treatment ordered: NONE Reason Anticoagulant not given: Not indicated/[id number] KUPNATY TAPIA MD Feb 28, 2021 19:08
[2021-03-01] MEDS: GABAPENTIN 100 MG CAP PO SCH ×3 (08:20→20:12)
[2021-03-01] MEDS: ENOXAPARIN 40MG/0.4ML SYRINGE (J1650 PER 10MG) SC SCH (08:21)
[2021-03-01] MEDS ORDERED: LORazepam 2 MG TAB PO SCH (09:00)
[2021-03-01] MEDS ORDERED: clonazePAM 1 MG TAB PO SCH (09:00)
[2021-03-01] MEDS ORDERED: OLANZapine 10 MG TAB PO SCH (09:00)
[2021-03-01] MEDS: VITAMIN E 400 INTERNATIONAL UNITS CAP PO SCH (09:44)
[2021-03-01 10:01] LABS: HEMATOCRIT 43.6 % (42.0-52.0); HEMOGLOBIN 15.6 g/dl (13.5-17.5); MEAN CORPUSCULAR HEMOGLOBIN 35.3 pg (27.0-33.0); MEAN CORPUSCULAR HGB CONC 35.8 g/dl (32.0-36.5); MEAN CORPUSCULAR VOLUME 98.6 fl (80.0-96.0); PLATELET COUNT, AUTOMATED 265 10^3/uL (150-450); RED BLOOD COUNT 4.42 10^6/uL (4.30-6.10); WHITE BLOOD COUNT 11.7 10^3/uL (4.0-10.0)
[2021-03-01 10:23] LABS: ALBUMIN 3.6 GM/DL (3.2-5.2); ALT/SGPT 67 U/L (12-78); BILIRUBIN,TOTAL 0.7 MG/DL (0.2-1.0); BLOOD UREA NITROGEN 12 MG/DL (7-18); CALCIUM LEVEL 8.5 MG/DL (8.5-10.1); CARBON DIOXIDE LEVEL 25 MEQ/L (21-32); CHLORIDE LEVEL 107 MEQ/L (98-107); CREATININE FOR GFR 0.78 MG/DL (0.70-1.30); GLOMERULAR FILTRATION RATE > 60.0 (>60); GLUCOSE, FASTING 85 MG/DL (70-100); MAGNESIUM LEVEL 2.5 MG/DL (1.8-2.4); POTASSIUM SERUM 3.9 MEQ/L (3.5-5.1); SODIUM LEVEL 141 MEQ/L (136-145); TOTAL PROTEIN 6.3 GM/DL (6.4-8.2)
--- NOTE | 2021-03-01 11:49 | IPNPDOC ---
Text Note Date of Service The patient was seen on 03/01/21. NOTE SUBJECTIVE: -Agitated this morning, restless had code-25 at ~5am, received Haldol, Ativan, Benadryl, 4 point restraints, beginning to calm down. -I spoke with Dr. Casillas in psych who will see him sometime today, but for now recommended Zyprexa 10mg BID, Klonopin 2mg BID, stopping Geodon, Ativan and making trazodone QHS PRN VITAL SIGNS: See Below. General: No acute distress, calmer, following commands but still restless. HEENT: Moist mucous membranes. NCAT Neck: No JVD or lymphadenopathy Cardiac: RRR, No murmurs/rubs or gallops Pulm: Clear to auscultation b/l. No wheezing, rhonchi Abd: Normoactive bowel sounds, soft, NTND Ext: No edema or cyanosis Psych: AOx3 but still restless, asking to be discharged LABORATORY DATA/IMAGING STUDIES/MICROBIOLOGY: Reviewed from yesterday. Have been unable to get labs due to agitation. ASSESSMENT AND PLAN: 40-year-old transgender male, genotype female, with a history of GERD, ADHD, bipolar, anxiety, PSUD who presented to the ED reporting suicidal ideation seeking psychiatric evaluation now being admitted to medicine of rhabdomyolysis i/s/o crystal meth use with associated agitation and suicidal ideation. Rhabdomyolysis i/s/o crystal meth use with associated agitation -s/p 1L NS bolus, continue NS at 150cc/hr if we are able to place IV back -strict I/Os -check CK and BMP with AM labs Suicidal ideation i/s/o illicit intoxication with background bipolar -1:1 sitter -psych consulted Crystal meth use w/ agitation -telemetry -I spoke with Dr. Casillas in psych who will see him sometime today, but for now recommended Zyprexa 10mg BID, Klonopin 2mg BID, stopping Geodon, Ativan and making trazodone QHS PRN -1:1 sitter ADHD -hold home Adderall while agitated i/s/o crystal meth use BIPOLAR -I spoke with Dr. Casillas in psych who will see him sometime today, but for now recommended Zyprexa 10mg BID, Klonopin 2mg BID, stopping Geodon, Ativan and making trazodone QHS PRN anxiety -I spoke with Dr. Casillas in psych who will see him sometime today, but for now recommended Zyprexa 10mg BID, Klonopin 2mg BID, stopping Geodon, Ativan and making trazodone QHS PRN diet: Regular dvt prophylaxis: heparin SC disposition: Psych consulted, medsurg tele VS,Fishbone, I+O VS, Fishbone, I+O Laboratory Tests 02/28/21 12:30 02/28/21 12:40 Vital Signs Date Time Temp Pulse Resp B/P (MAP) Pulse Ox O2 Delivery O2 Flow Rate FiO2 03/01/21 06:45 98.5 89 24 139/86 96 Room Air 02/28/21 16:38 4.0 I&O- Last 24 Hours up to 6 AM 03/01/21 06:00 Intake Total 1355 ml Output Total 200 ml Balance 1155 ml NATY GREGORY MD Mar 01, 2021 07:48
--- NOTE | 2021-03-01 13:28 | ECGEPIP ---
[facility] Test Date: 2021-03-01 Pat Name: AVELINA DODGE Department: Room: [place] [address] Gender: Male Senior Php Developer: black : 1980 Requested By: NATY Booth Order Number: [id number] Reading MD: Socorro Vivas Measurements Intervals [place] Rate: 73 P: 2 AK: 136 QRS: 46 QRSD: 118 T: 48 QT: 396 QTc: 436 Interpretive Statements Normal sinus rhythm Incomplete right bundle branch block RATE SLOWER C/W 02/28/21 Electronically Signed on 03-01-2021 13:27:59 EDT by Socorro Vivas
[2021-03-01] MEDS: OLANZapine 10 MG TAB PO SCH ×2 (16:03→20:12)
--- NOTE | 2021-03-01 17:44 | MHIPNPDOC ---
[facility] Progress Note Progress Note DATE OF SERVICE: 03/01/21 HISTORY: As per previous notes: "CHIEF COMPLAINT: Presented himself to the ED reporting suicidal ideation HISTORY OF PRESENTING ILLNESS: 40-year-old transgender male, genotype female, with a history of GERD, ADHD, bipolar, anxiety, PSUD who presented to the ED reporting suicidal ideation seeking psychiatric evaluation and treatment and when the ED provider came in to evaluate him he was acting bizzare, reporting that he did not know why he was here, became agitated, and reported that he did crystal meth yesterday. He denied any chest pain, abdominal pain, SOB, fever, chills, was tangential, re stless, fidgety and had a 1:1 sitter ordered for the bizzare behavior and reported suicidality. Shortly after evaluation the team was urgently called bythe sitter to the bedside as he had tied his cords around his neck and was trying to strangle himself and had to struggle to remove the tight wrapped cord. He was given midazolam with good effect. CT head revealed no acute pathology as did CXR. Labs were notable for CK 2351, Cr was at his baseline of 1.11, na 138, K 3.4 (was repleted with 40 PO K), WBC 9.2, hgb 15.8, platelets 231, TSH 1.24, AST 77, ALT 54. He is now being admitted to medicine of rhabdomyolysis i/s/o crystal meth use with associated agitation and suicidal ideation. " Today, 03/01/21 Dr. Allred contacted this development writer because the patient has been restless and agitated. Apparently, while at the ED he tried to strangle himself with the IV cord and was restrained. He was found to have elevated levels of CK and rhabdomyolysis and was admitted to the Medical floor. He has been agitated, restless and presenting with dangerous behavior. This development writer spoke with Dr. Allred and recommended Zyprexa 10 mgs PO BID initially but as soon as the effect of the medication wore off, started getting agitated again and received a second dose of Zyprexa 10 mgs. I recommended to have him on Zyprexa 10 mgs PO TID and not BID. During the morning, he received 2 mgs. of Klonopin. It was reported that he was taking 2 mgs PO QID of Lorazepam but his urine tox was negative for benzodiazepines. VITAL SIGNS: See below. NEW TEST RESULTS: See below CURRENT MEDICATIONS: See below. MENTAL STATUS EXAMINATION: Patient is a 40 -year old male, who is drowsy, sleepy, dressed in hospital gown, laying on his hospital bed, confused, with fair eye contact Speech: Is slurred, slow, fragmented and needs prompting Language skills are fair Thought processes including: Has delayed responses, seems to have thought blocking, having problems to process his thoughts Thought content: he says he is not sure about feeling suicidal, he says "I guess so", he tells me he can't remember anything, that he feels very tired. Abstract reasoning, and computation: the patient is drowsy, sleepy, confused. he seems to be encephalopathic. I could not assess his abstract reasoning and computationDescription of associations: he is not able to recall, has trouble processing thoughts, answering questions. Description of abnormal or psychotic thoughts: he says "I don't know" when this development writer asked him if he was having auditory or visual hallucinations. Denied tactile hallucinations and could not tell me if he was delusional or not. Once again he said "I don't know" Judgment: Poor Insight: Poor Orientation: oriented to place only Recent and remote memory: Poor, has no recollection of the events that lead to hospitalization, can't remember when he arrived at the hospital or any of the incidents reported Attention span and concentration: poor, he is very sleepy Language: poverty of language at this time Fund of knowledge: not assessed at this time Mood: sad, labile Affect: congruent with mood DIAGNOSES: 1. R/O Substance induced psychotic disorder 2. Bipolar disorder by h/o 3. ADHD by h/o 4. Polysubstance use disorder ASSESSMENT: Patient is confused, he says he doesn't remember anything, he couldn't keep talking to me because he said he was very tired and he was tired because he had just received a second dose of Zyprexa 10 mgs PO. Since he was not taking benzodiazepines and he is having a good response to Zyprexa, I recommend decreasing the dose of Klonopin to 1 mg PO BID. Once medically cleared he can be transferred to [facility]. He needs to continue on a 1:1 sitter, he is still in danger to self or others. He says he is not sure about having hallucinations but he probably has been experiencing them and certainly he has presented with bizarre and aggressive behavior. MANAGEMENT PLAN: As above TIME SPENT: 10 minutes. Vital Signs Vital Signs Date Time Temp Pulse Resp B/P (MAP) Pulse Ox O2 Delivery O2 Flow Rate FiO2 03/01/21 16:00 98.2 87 19 116/64 (81) 99 Room Air 02/28/21 16:38 4.0 Laboratory Data 24H Labs Laboratory Tests 2 02/28/21 19:24: Coronavirus (COVID-19)(PCR) NEGATIVE, Influenza Type A (RT-PCR) NEGATIVE, Influenza Type B (RT-PCR) NEGATIVE, Respiratory Syncytial Virus (PCR) NEGATIVE 03/01/21 09:45: Nucleated Red Blood Cells % (auto) 0.0, Anion Gap 9, Glomerular Filtration Rate > 60.0, Calcium Level 8.5, Magnesium Level 2.5H, Total Bilirubin 0.7, Aspartate Amino Transf (AST/SGOT) 77H, Alanine Aminotransferase (ALT/SGPT) 67, Alkaline Phosphatase 51, Total Protein 6.3L, Albumin 3.6, Albumin/Globulin Ratio 1.3 CBC/BMP Laboratory Tests 03/01/21 09:45 Current Medications Current Medications Medications (Trade) Dose Ordered Sig/Bola Route PRN Reason Start Time Stop Time Status Last Admin Dose Admin Acetaminophen (Tylenol Tab) 650 mg Q4H PRN PO MILD PAIN or TEMP > 101 02/28/21 18:20 Clonazepam (KlonoPIN) 2 mg BID PO 03/01/21 09:00 03/01/21 08:20 Diphenhydramine HCl (Benadryl) 25 mg STAT STAT IM 03/01/21 05:17 03/01/21 05:18 DC 03/01/21 05:36 Enoxaparin Sodium (Lovenox) 40 mg DAILY SC 03/01/21 09:00 03/01/21 08:21 Gabapentin (Neurontin) 100 mg TID PO 03/01/21 09:00 03/01/21 16:03 Haloperidol (Haldol) 5 mg STAT STAT IM 03/01/21 05:17 03/01/21 05:20 DC 03/01/21 05:36 Home Med (Home Med List Complete!) ASDIRECTED XX 9/23/21 21:25 02/28/21 21:28 DC Loratadine (Claritin) 10 mg DAILY PRN PO ALLERGY SYMPTOMS 03/01/21 07:25 Lorazepam (Ativan) 1 mg STAT STAT IV 02/28/21 13:37 02/28/21 13:38 Cancel Lorazepam (Ativan) 1 mg STAT STAT PO 02/28/21 13:54 02/28/21 13:55 Cancel Lorazepam (Ativan) 2 mg Q3HP PRN IV agitation 02/28/21 18:35 Cancel Lorazepam (Ativan) 2 mg QID PO 03/01/21 09:00 UNV Lorazepam (Ativan) 2 mg STAT STAT IM 03/01/21 05:14 03/01/21 05:17 DC 03/01/21 05:35 Lorazepam (Ativan) 2 mg STAT STAT IV 03/01/21 05:14 03/01/21 05:17 DC Olanzapine (ZyPREXA) 10 mg BID PO 03/01/21 09:00 03/01/21 15:36 DC 03/01/21 09:44 Olanzapine (ZyPREXA) 10 mg TID PO 03/01/21 16:00 03/01/21 16:03 Omeprazole (PriLOSEC) 40 mg QHS PO 03/01/21 21:00 Prazosin HCl (Minipress) 2 mg QHS PO 03/01/21 21:00 Sodium Chloride 1,000 ml @ 150 mls/hr Q6H40M IV 02/28/21 16:35 03/01/21 14:10 Trazodone HCl (Desyrel) 150 mg QHS PRN PO INSOMNIA 03/01/21 21:00 Vitamin E (Vitamin E) 400 units DAILY PO 03/01/21 09:00 03/01/21 09:44 Ziprasidone (Geodon) 160 mg QHS PO 03/01/21 21:00 UNV Allergies Coded Allergies: SEASONAL ALLERGIES (Unverified Allergy, Unknown, 11/26/17) egg (Verified Adverse Reaction, Unknown, INTOLERANCE, 02/28/21) ANGELLA GERARDO MD Mar 01, 2021 17:19
[2021-03-01] MEDS: clonazePAM 1 MG TAB PO SCH (20:13)
[2021-03-01] MEDS ORDERED: traZODone 50 MG TAB PO PRN (21:00)
[2021-03-01] MEDS ORDERED: PRAZOSIN 1 MG CAP PO SCH (21:00)
[2021-03-01] MEDS ORDERED: OMEPRAZOLE 20 MG CAP PO SCH (21:00)
[2021-03-01] MEDS ORDERED: ZIPRASIDONE 80 MG CAP (GEODON) PO SCH (21:00)
[2021-03-02 06:00] VITALS: BP 120/56
[2021-03-02 06:14] LABS: HEMATOCRIT 40.1 % (42.0-52.0); HEMOGLOBIN 14.1 g/dl (13.5-17.5); MEAN CORPUSCULAR HEMOGLOBIN 35.1 pg (27.0-33.0); MEAN CORPUSCULAR HGB CONC 35.2 g/dl (32.0-36.5); MEAN CORPUSCULAR VOLUME 99.8 fl (80.0-96.0); PLATELET COUNT, AUTOMATED 209 10^3/uL (150-450); RED BLOOD COUNT 4.02 10^6/uL (4.30-6.10)
[2021-03-02 06:59] LABS: BLOOD UREA NITROGEN 10 MG/DL (7-18); CALCIUM LEVEL 7.9 MG/DL (8.5-10.1); CARBON DIOXIDE LEVEL 24 MEQ/L (21-32); CHLORIDE LEVEL 113 MEQ/L (98-107); CPK CREATINE PHOSPHOKINASE 1444 U/L (39-308); CREATININE FOR GFR 0.77 MG/DL (0.70-1.30); GLOMERULAR FILTRATION RATE > 60.0 (>60); GLUCOSE, FASTING 67 MG/DL (70-100); POTASSIUM SERUM 3.7 MEQ/L (3.5-5.1); SODIUM LEVEL 143 MEQ/L (136-145)
[2021-03-02] MEDS: VITAMIN E 400 INTERNATIONAL UNITS CAP PO SCH (08:17)
[2021-03-02] MEDS: GABAPENTIN 100 MG CAP PO SCH (08:18)
[2021-03-02] MEDS: ENOXAPARIN 40MG/0.4ML SYRINGE (J1650 PER 10MG) SC SCH ×2 (08:18→08:49)
[2021-03-02] MEDS: clonazePAM 1 MG TAB PO SCH (08:18)
[2021-03-02] MEDS: OLANZapine 10 MG TAB PO SCH (08:18)
[2021-03-02] MEDS: NS 1,000 ML IV SCH (08:35)
[2021-03-02] MEDS ORDERED: NS 500 ML IV ONE (08:35)
[2021-03-02] MEDS ORDERED: CLON1TAB8 PO (12:20)
[2021-03-02] MEDS ORDERED: OLAN1TAB20 PO (12:20)
[2021-03-02 14:00] VITALS: BP 118/60
--- NOTE | 2021-03-02 18:51 | DS.PDOC ---
Discharge Summary General Date of Admission Feb 28, 2021 at 12:02 Date of Discharge Mar 02, 2021 Specialist/[facility], Dr. Casillas Discharge Summary PROCEDURES PERFORMED DURING STAY: None ADMITTING DIAGNOSES: 1. Rhabdomyolysis in the setting of crystal meth use and agitation 2. Suicidal ideation in the setting of intoxication and history of bipolar 3. Crystal meth use with agitation 4. ADHD 5. Bipolar 6. Anxiety DISCHARGE DIAGNOSES: 1. Rhabdomyolysis in the setting of crystal meth use and agitation 2. Suicidal ideation in the setting of intoxication and history of bipolar 3. Crystal meth use with agitation 4. ADHD 5. Bipolar 6. Anxiety COMPLICATIONS/CHIEF COMPLAINT: Methamphetamine Abuse,Rhabdomyolysis,Suicidal Idea. HISTORY OF PRESENT ILLNESS: Copied from admitting attending's H&P " 40-year-old transgender male, genotype female, with a history of GERD, ADHD, bipolar, anxiety, PSUD who presented to the ED reporting suicidal ideation s eeking psychiatric evaluation and treatment and when the ED provider came in to evaluate him he was acting bizzare, reporting that he did not know why he was here, became agitated, and reported that he did crystal meth yesterday. He denied any chest pain, abdominal pain, SOB, fever, chills, was tangential, restless, fidgety and had a 1:1 sitter ordered for the bizzare behavior and reported suicidality. Shortly after evaluation the team was urgently called by the sitter to the bedside as he had tied his cords around his neck and was trying to strangle himself and had to struggle to remove the tight wrapped cord. He was given midazolam with good effect. CT head revealed no acute pathology as did CXR. Labs were notable for CK 2351, Cr was at his baseline of 1.11, na 138, K 3.4 (was repleted with 40 PO K), WBC 9.2, hgb 15.8, platelets 231, TSH 1.24, AST 77, ALT 54. He is now being admitted to medicine of rhabdomyolysis i/s/o crystal meth use with associated agitation and suicidal ideation. " HOSPITAL COURSE: Patient had 2 suicide attempts during hospitalization. Once was in the ED when he was trying to strangle himself with IV cord. Once was on the floor when he also tried to strangle himself with IV cord again. Psychiatry was consulted and recommended inpatient mental health unit once patient was medically stable. Patient needed IV fluids as he had rhabdomyolysis. On admission creatinine was at 1.1, but with IV fluids, improved to 0.77. Creatinine phosphokinase also greatly improved and is close to goal. This morning, patient was seen sitting outside of his room on the phone with his mom. He was suspicious of medication we are giving him. With redirection, patient was able to get back to bed and take his medications. Patient wanted to ambulate and take a shower. Since he was close to goal and he had already tried to strangle himself twice, I gave him a bolus of fluid and discontinued his IV. This would also reduce the opportunity to attempt something with IV if he were to take a shower or ambulate in the hallway. Patient denies any chest pain, dyspnea, or abdominal pain. Patient is medically stable to go to inpatient mental health unit. DISCHARGE MEDICATIONS: Please see below. ALLERGIES: Please see below. PHYSICAL EXAMINATION ON DISCHARGE: VITAL SIGNS: Please see below. GENERAL: Comfortable, in no apparent distress. HEENT: Sclera clear. NECK: No JVD. RESPIRATORY: Lungs clear to auscultation bilaterally, no rales, wheeze or rhonchi. CARDIOVASCULAR: Regular rate and rhythm. ABDOMEN: Soft, nontender, no guarding or rebound tenderness. Normal bowel sounds. MUSCLE SKELETAL: Muscle strength 5/5 in all extremities. PSYCHOLOGICAL: Anxious and paranoid LABORATORY DATA: Please see below. IMAGING: Radiology interpretation CT head No acute intracranial abnormality seen. Chest x-ray No acute pulmonary disease. PROGNOSIS: Good ACTIVITY: As tolerated. DIET: As tolerated DISCHARGE PLAN: Inpatient mental health unit DISPOSITION: [facility]. DISCHARGE INSTRUCTIONS: 1. Follow-up with psychiatrist at inpatient mental health unit 2. Follow-up with PCP once discharged from inpatient mental health unit 3. Hold Adderall as patient had done meth and was intoxicated ITEMS TO FOLLOWUP ON ON OUTPATIENT: 1. CPK. DISCHARGE CONDITION: Stable Total time spent on discharge planning, discharge summary, medication reconciliation: 35 minutes Vital Signs/I&Os Vital Signs Date Time Temp Pulse Resp B/P (MAP) Pulse Ox O2 Delivery O2 Flow Rate FiO2 03/02/21 14:00 98.9 67 18 118/60 (79) 97 Room Air 02/28/21 16:38 4.0 I&O- Last 24 Hours up to 6 AM 03/02/21 06:00 Intake Total 3960 ml Output Total 400 ml Balance 3560 ml Laboratory Data Labs 24H Laboratory Tests 2 03/02/21 05:38: Nucleated Red Blood Cells % (auto) 0.0, Anion Gap 6L, Glomerular Filtration Rate > 60.0, Calcium Level 7.9L, Total Creatine Kinase 1444H CBC/BMP Laboratory Tests 03/02/21 05:38 Discharge Medications Scheduled Clonazepam (Clonazepam) 1 Mg Tablet, 1 MG PO BID Gabapentin (Gabapentin) 100 Mg Capsule, 100 MG PO TID, (Reported) Olanzapine (Olanzapine) 10 Mg Tablet, 10 MG PO TID Omeprazole (Omeprazole) 40 Mg Cap, 40 MG PO QHS, (Reported) Prazosin Hcl (Prazosin HCl) 2 Mg Cap, 2 MG PO QHS, (Reported) Testosterone Cypionate (Testosterone Cypionate) 200 Mg/Ml Inj, 100 MG IM QWEEK, (Reported) MONDAYS Trazodone HCl (Trazodone HCl) 150 Mg Tablet, 150 MG PO QHS, (Reported) Vitamin E (Vitamin E) 400 Unit Capsule, 400 UNIT PO DAILY, (Reported) Ziprasidone HCl (Ziprasidone HCl) 80 Mg Capsule, 160 MG PO QHS, (Reported) Scheduled PRN Loratadine (Loratadine) 10 Mg Tablet, 10 MG PO DAILY PRN for ALLERGY SYMPTOMS, (Reported) Allergies Coded Allergies: SEASONAL ALLERGIES (Unverified Allergy, Unknown, 11/26/17) egg (Verified Adverse Reaction, Unknown, INTOLERANCE, 02/28/21) NUZHAT MADRID DO Mar 02, 2021 18:51
== END 2021-03-02 15:45 ==
LOC: M ED 12:01 → M ED INP 12:02 → ENRESERV 20:39 → M PCU 21:33 → M MSPAV 03-01 17:31
PROVIDERS: ADMIT Internal Medicine; ATTEND Internal Medicine
DX: M62.82 Rhabdomyolysis (principal); F15.20 Other stimulant dependence, uncomplicated; R45.1 Restlessness and agitation; R45.851 Suicidal ideations; F31.9 Bipolar disorder, unspecified; F90.9 Attention-deficit hyperactivity disorder, unspecified type; F41.9 Anxiety disorder, unspecified; F64.9 Gender identity disorder, unspecified; K21.9 Gastro-esophageal reflux disease without esophagitis; K76.0 Fatty (change of) liver, not elsewhere classified; F17.218 Nicotine dependence, cigarettes, with other nicotine-induced disorders; Z79.899 Other long term (current) drug therapy; Z91.012 Allergy to eggs
CPT/HCPCS: 96360; 96361; 96372; G0378

== ENCOUNTER 2021-03-02 13:47 | Inpatient (IN) | payer MEDICARE, MEDICAID ==
[~2021-03-02 13:47] MED LIST changes: +ADDE30TA PO; +GABA-1171 PO; +LORA-674 PO; +MAGN250T11 PO; +OLAN1TAB20 PO; +TRAZ150T90 PO; +VITA-245 PO
[2021-03-02] MEDS ORDERED: traZODone 50 MG TAB PO PRN (15:00)
[2021-03-02] MEDS ORDERED: MAALOX 30 ML SUSP *UDC PO PRN ×2 (15:00→16:00)
[2021-03-02] MEDS ORDERED: MOM 30ML SUSPENSION UDC PO PRN ×2 (15:00→16:00)
[2021-03-02] MEDS ORDERED: LORATADINE 10 MG TAB PO SCH ×2 (15:05→16:00)
[2021-03-02 15:54] VITALS: BP 140/78
[2021-03-02] MEDS ORDERED: OLANZapine 10 MG TAB PO SCH (16:00)
[2021-03-02] MEDS ORDERED: GABAPENTIN 100 MG CAP PO SCH (16:00)
[2021-03-02] MEDS: OLANZapine 10 MG TAB PO SCH ×2 (16:37→20:12)
[2021-03-02] MEDS: GABAPENTIN 100 MG CAP PO SCH ×2 (16:38→20:15)
[2021-03-02 18:57] VITALS: BP 128/73
[2021-03-02 19:00] VITALS: BP 128/73
[2021-03-02] MEDS: OMEPRAZOLE 20 MG CAP PO SCH (20:13)
[2021-03-02] MEDS: traZODone 50 MG TAB PO PRN (20:14)
[2021-03-02] MEDS: PRAZOSIN 1 MG CAP PO SCH (20:14)
[2021-03-02] MEDS: clonazePAM 1 MG TAB PO SCH (20:14)
[2021-03-02] MEDS ORDERED: OMEPRAZOLE 20 MG CAP PO SCH (21:00)
[2021-03-02] MEDS ORDERED: clonazePAM 1 MG TAB PO SCH (21:00)
[2021-03-02] MEDS ORDERED: PRAZOSIN 1 MG CAP PO SCH (21:00)
[2021-03-03] MEDS ORDERED: LIDOCAINE 5% (LIDODERM) PATCH TD ONE ×2 (03:55→04:20)
[2021-03-03] MEDS: ACETAMINOPHEN TAB 650MG DOSE (2X325MG) PO PRN ×2 (04:41→18:02)
[2021-03-03 06:00] VITALS: BP 100/58
[2021-03-03] MEDS: OLANZapine 10 MG TAB PO SCH ×3 (08:03→20:21)
[2021-03-03] MEDS: clonazePAM 1 MG TAB PO SCH ×2 (08:03→20:21)
[2021-03-03] MEDS: GABAPENTIN 100 MG CAP PO SCH ×3 (08:03→20:21)
[2021-03-03 14:03] LABS: BLOOD UREA NITROGEN 13 MG/DL (7-18); CALCIUM LEVEL 8.9 MG/DL (8.5-10.1); CARBON DIOXIDE LEVEL 27 MEQ/L (21-32); CHLORIDE LEVEL 109 MEQ/L (98-107); CPK CREATINE PHOSPHOKINASE 870 U/L (39-308); CREATININE FOR GFR 1.11 MG/DL (0.70-1.30); GLOMERULAR FILTRATION RATE > 60.0 (>60); GLUCOSE, FASTING 125 MG/DL (70-100); SODIUM LEVEL 142 MEQ/L (136-145)
--- NOTE | 2021-03-03 14:11 | REP ---
INDICATION: Right hand swelling. COMPARISON: None. TECHNIQUE: Multiple ultrasonographic images of the deep venous structures of the right upper extremity were obtained to rule out deep venous thrombosis. The contralateral subclavian vein was also interrogated in a limited fashion for comparison. FINDINGS: There is no abnormal echogenic material seen in any of the visualized deep venous structures of the right upper extremity. Coaptation where applicable is appropriate throughout. Focus of echogenic material is seen in the distal cephalic vein. IMPRESSION: Small thrombus in the distal cephalic vein. <Electronically signed by Nixon Sainz > 03/03/21 [id number]
[2021-03-03 15:19] LABS: ALBUMIN 3.4 GM/DL (3.2-5.2); ALT/SGPT 57 U/L (12-78); BILIRUBIN,DIRECT 0.1 MG/DL (0.0-0.2); BILIRUBIN,TOTAL 0.5 MG/DL (0.2-1.0); CHOLESTEROL LEVEL 144 MG/DL (<200); CHOLESTEROL RISK RATIO 4.965 (<5); HDL CHOLESTEROL 29 MG/DL (>40); LDL CHOLESTEROL 87 MG/DL (<100); NON-HDL-C 115 MG/DL; TOTAL PROTEIN 6.2 GM/DL (6.4-8.2); TRIGLYCERIDES LEVEL 138 MG/DL (<150)
[2021-03-03] MEDS ORDERED: **NOTE PATIENT COMMENT** MISC XX ONE (16:30)
[2021-03-03 16:54] VITALS: BP 120/65
--- NOTE | 2021-03-03 18:20 | HPEPDOC ---
[facility] Medical History & Physical Date of Admission Mar 02, 2021 Date of Service: Mar 03, 2021 History and Physical CHIEF COMPLAINT: Medical health screening HISTORY OF PRESENT ILLNESS: Mr. Dyson is a 40-year-old transgender male (genotype female) with ADHD, bipolar, anxiety, and fatty liver who is in the inpatient mental health unit for suicide attempt by strangulation with IV cord. Patient had done crystal meth on 02/27/2021 and was very agitated and acting bizarre. Patient was in the ED on 02/28/2021 and had try to strangle himself with the IV cord. Patient was admitted for rhabdomyolysis. While hospitalized, he attempted to strangle himself again with IV cord. Patient was medically cleared on 03/02/2021 to go to inpatient mental health unit. This afternoon when I saw him, he was sleepy. He denied any fever, chest pain, dyspnea, abdominal pain, or dysuria. He had swelling of his right hand and was found to have superficial vein occlusion. There is no need for anticoagulation. Patient will need suppo rtive care and pain control. Otherwise he reported having diarrhea. Diarrhea started since hospitalization. Will check stool for C. difficile. PAST MEDICAL HISTORY: 1. History of alcohol pancreatitis 2. Fatty liver 3. GERD 4. ADHD 5. Bipolar disorder 6. Anxiety 7. Manic stress disorder 8. Small bowel obstruction PAST SURGICAL HISTORY: 1. Hysterectomy 2. Ulnar nerve carpal tunnel surgery 3. Breast reduction 4. Tubal ligation SOCIAL HISTORY: Tobacco use: Current smoker ETOH: Denies Illicit drug use: Uses crystal meth FAMILY HISTORY: Father: History of diabetes mellitus Mother: History of asthma ALLERGIES: Please see below. REVIEW OF SYSTEMS: CONSTITUTIONAL: Denies any fever or chills. ENT: Denies sore throat. RESPIRATORY: Denies shortness of breath. Denies cough. CARDIOVASCULAR: Denies chest pain. GASTROINTESTINAL: Denies abdominal pain. Reports diarrhea. GENITOURINARY: Denies dysuria. CUTANEOUS: Denies rashes. MUSCULOSKELETAL: Reports right hand swelling and pain NEUROLOGICAL: Denies neuropathy. PSYCHOLOGICAL: Denies anxiety. Denies depression. HOME MEDICATIONS: Please see below. PHYSICAL EXAMINATION: VITAL SIGNS: Temperature 98, pulse 70, respiratory rate 18, blood pressure 120/65, pulse oximetry 95% on room air. GENERAL: Comfortable, in no apparent distress. HEENT: Sclera clear. NECK: Supple. RESPIRATORY: Lungs clear to auscultation bilaterally, no rales, wheeze or rhonchi. CARDIOVASCULAR: Regular rate and rhythm. ABDOMEN: Soft, nontender, no guarding or rebound tenderness. Normal bowel sounds. MUSCLE SKELETAL: Muscle strength 5/5 in all extremities. PSYCHOLOGICAL: Normal mood and affect LABORATORY DATA: See below. IMAGING: Radiologist interpretation Ultrasound right upper extremity Small thrombus in the distal cephalic vein. MICROBIOLOGY: Please see below. ASSESSMENT and PLAN: 1. Suicidal ideation and attempt During hospitalization patient tried to strangle himself with IV cord Patient being managed to the inpatient mental health unit 2. Right upper extremity superficial vein thrombus Most likely secondary to IV Supportive care Okay to use Tylenol and warm compress for pain 3. Rhabdomyolysis Patient's CPK at goal at below 1000 Continue supportive care and encourage oral intake of fluids 4. GERD Continue omeprazole Thank you for consulting us. We will sign off at this time. If there is any further questions or concerns, please do not hesitate to reconsult us. Vital Signs Vital Signs Date Time Temp Pulse Resp B/P (MAP) Pulse Ox O2 Delivery O2 Flow Rate FiO2 03/03/21 16:54 98.0 70 18 120/65 (83) 03/03/21 10:45 Room Air 03/03/21 06:00 95 Laboratory Data Labs 24H Laboratory Tests 2 03/03/21 13:10: Anion Gap 6L, Glomerular Filtration Rate > 60.0, Calcium Level 8.9, Total Biliru bin 0.5, Direct Bilirubin 0.1, Aspartate Amino Transf (AST/SGOT) 39H, Alanine Aminotransferase (ALT/SGPT) 57, Alkaline Phosphatase 51, Total Creatine Kinase 870H, Total Protein 6.2L, Albumin 3.4, Albumin/Globulin Ratio 1.2, Triglycerides Level 138, Total Cholesterol 144, LDL Cholesterol 87, Non-HDL Cholesterol (LDL + VLDL) 115, Total HDL Cholesterol 29L, Cholesterol/HDL Ratio 4.965 CBC/BMP Laboratory Tests 03/03/21 13:10 Home Medications Scheduled Clonazepam (Clonazepam) 1 Mg Tablet, 1 MG PO BID Gabapentin (Gabapentin) 100 Mg Capsule, 100 MG PO TID Olanzapine (Olanzapine) 10 Mg Tablet, 10 MG PO TID Omeprazole (Omeprazole) 40 Mg Cap, 40 MG PO QHS Prazosin Hcl (Prazosin HCl) 2 Mg Cap, 2 MG PO QHS Testosterone Cypionate (Testosterone Cypionate) 200 Mg/Ml Inj, 100 MG IM QWEEK MONDAYS Trazodone HCl (Trazodone HCl) 150 Mg Tablet, 150 MG PO QHS Vitamin E (Vitamin E) 400 Unit Capsule, 400 UNIT PO DAILY Ziprasidone HCl (Ziprasidone HCl) 80 Mg Capsule, 160 MG PO QHS Scheduled PRN Loratadine (Loratadine) 10 Mg Tablet, 10 MG PO DAILY PRN for ALLERGY SYMPTOMS Allergies Coded Allergies: SEASONAL ALLERGIES (Unverified Allergy, Unknown, 11/26/17) egg (Verified Adverse Reaction, Unknown, INTOLERANCE, 02/28/21) A-FIB/CHADSVASC A-FIB History Current/History of A-Fib/PAF?: No NUZHAT MADRID DO Mar 03, 2021 18:20
--- NOTE | 2021-03-03 20:03 | MHHPEPDOC ---
General Date Of Admission: Mar 02, 2021 Legal Status: 9.39 Chief Complaint Recent methampheatmine overdose, rhabdomyolysis, psychosis and suicidal ideation History of Present Illness HISTORY OF THE PRESENT ILLNESS: Patient is a 40 -year-old , male, who, as per Hospitalist note: "40-year-old transgender male, genotype female, with a history of GERD, ADHD, bipolar, anxiety, PSUD who presented to the ED reporting suicidal ideation seeking psychiatric evaluation and treatment and when the ED provider came in to evaluate him he was acting bizzare, reporting that he did not know why he was here, became agitated, and reported that he did crystal meth yesterday. He denied any chest pain, abdominal pain, SOB, fever, chills, was tangential, restless, fidgety and had a 1:1 sitter ordered for the bizzare behavior and reported suicidality. Shortly after evaluation the team was urgently called bythe sitter to the bedside as he had tied his cords around his neck and was trying to strangle himself and had to struggle to remove the tight wrapped cord. He was given midazolam with good effect. CT head revealed no acute pathology as did CXR. Labs were notable for CK 2351, Cr was at his baseline of 1.11, na 138, K 3.4 (was repleted with 40 PO K), WBC 9.2, hgb 15.8, platelets 231, TSH 1.24, AST 77, ALT 54. He is now being admitted to medicine of rhabdomyolysis i/s/o crystal meth use with associated agitation and suicidal ideation. " On 03/01/21 the patient was evaluated by this clinical writer, via zoom, while he has a PCU. He was very sleepy, said he didn't remember any of the events that had brought him to the hospital, told me he was not sure if had tried to kill himslef or not, he said he was not sure about hallucinating but yesterday, 03/02/21, Dr. Phelps saw him sitting in the middle of the hallpway while he was talking to someone that nobody else could see and who him identified as his mother. On 03/01/21, I couldn't getr any information from him because he fell asleep 10 minutes after we started our conversation. When he was at the ED, he tried to wrap the IVcord araound his neck and while at PCU he tried to do the same with a sheet. He had to be restrained. Psychiatric Review of Systems Depression (2 or more weeks): depressed mood, insomnia/hypersomnia (hypersomnia), feelings of excess/guilt, feelings of worthlesness (hopeless and helpless), decreased energy, difficulty concentrating, psychomotor changes, suicidal thoughts Michell (4 or more days of): distractibility, engages in risky behavior Psychosis: auditory hallucination ("i don't know"), visual hallucination (he experienced those at the Medical floor), disorganization PTSD: other (He says he doesn't remember) Anxiety: other (He says he doesn't know) Past Psychiatric History Previous Psychiatric Diagnosis: Bipolar d/o, ADHD, not sure about depression, reports anxiety, PTSD Previous Psychiatric Admissions: He wasadmitted to a psych deshpande at age 15 Suicide Attempts: he says he has attempted suicide but then he says "not really" and "i don't know" Psychiatric Follow-up: Counseling services ( EMDR) in [place] Psychiatric medications: Yes, but he says he doesn't remember the name of them but his has that info. Past Medical History Medical Problems He says he doesn't know if he had a head injury. Seizures: Yes (He says he has seizures, he says he never received treatment for them and then he says "I don't know") Hospitalizations: No (He says he doesn't remember) Surgeries: Yes ("I think so") Family Medical/Psychiatric HX Medical Problems Dad had diabetes, he's . Mom is alive Psychiatric Disorders: No Addiction: No Suicide Attemps/Completions: No Addiction History nicotine (not anymore), alcohol (not anymore), cocaine (a long time ago), ecstasy (when he was a teenager), amphetamines (he says he uses adderall), methamphetamines (he tested positve for it, he says he used it.) Social History Childhood: HE SAYS HE DOESN'T REMEMBER ANYTHING Abuse/Trauma: HE SAYS HE DOESN'T REMEMBER ANYTHING Current Living Situation: LIVES WITH THEN HE SAYS HE DOESN'T KNOW AND IS THAT HE CAN'T REMEMBER Education: THE PATIENT LEFT THE ROOM, HE SAID HE WAS VERY TIRED Employment: THE PATIENT LEFT THE ROOM, HE SAID HE COULDN'T REMEMBER ANYTHING Social Support: His and his mother Legal: THE PATIENT LEFT THE ROOM SAYING HE COULDN'T REMEMBER ANYTHING AND SAYING "I DON'T KNOW" Marital: hE SAYS HE HAS A Mental Status Examination General Appearance: well groomed, ds/not appear stated age (looks older), hospital scubs/clothing Build: average Demeanor: withdrawn, preoccupied, guarded Eye Contact: avoidant Behavior: resistant Speech: slow, low in volume, non-spontaneous, impoverished Mood: depressed, anxious Affect: constricted, congruent, anxious Thought Process: blocked, depressed, slow Thought Content (Delusions): none reported Thought Content (Other): none reported Thought Content (Aggressive): none reported Perception (Hallucinations): other (at times he seems to be responding to internal stimuli) Cognition (Impairment of): orientation, memory, attention/concentration Cognition(Intelligence Est.): average Oriented: Awake, Alert (not fully oriented to date and time) Insight: poor Judgment: Poor Psychosis: Psychotic Perceptions Diagnoses 1. Unspecified psychotic disorder 2. Substance induced psychosis 3. Polysubstance use disorder 4. R/O schizoaffective disorder 5. R/O personality disorder A-FIB/CHADSVASC A-FIB History Current/History of A-Fib/PAF?: No Current PO Anticoag Therapy: No Age/Risk Factor Scoring CHADSVASC: CHADSVASC Response (Comments) Value Age Risk Factor Age < 65 years old 0 Gender Risk Factor Female 1 Hx of CHF No 0 Hx of HTN No 0 Hx of Stroke/TIA/or VTE No 0 Hx of Diabetes No 0 Hx of Vascular Disease No 0 Total 1 Treatment Treatment ordered: NONE Reason Anticoagulant not given: Not indicated/[id number] Assessment He might be experiencing memory problems as a result of methamphetamine use that resulted in several health problems, including rhabdomyolysis. At the medical floor he presented psychotic, was belligerent, tried to wrap a sheet around his neck and had to be restrained. At the ED he tried to wrap the IV cord around his neck. According to ED documentation, he presented to the ed by himself, requesting help, saying he was suicidal, when he was noticed to be acting bizarre. He was admitted to the Medical floor where he was stabilized and where this clinical writer recommended Zyprexa 10 mgs PO TID and Klonopin 1 mg PO BID. He had said he was taking 2 mgs of Ativan O QID but his urine toxicology was negative for benzodiazepines. Today, when I interviewed him, he answered that he didn't remember anything or that he didn't kno when this clinical writer asked him questions pertaining the Psychiatric Interview. He left the room at some point saying that he was very sleepy. When I came to speak with him in person he asked if I could prescribe something for anxiety, scheduled and I reminded him that just 48 hours ago, he was struggling because of his methampheatmine overdose and that it was not aguiar to start him on lots of medications. Initial Treatment Plan 1. Patient was admitted on a [9.39] status. 2. Complete history was obtained. 3. With patients permission, family will be contacted and database will be expanded. 4. Patients medication regimen will be reviewed and changed accordingly. 5. Patient will be provided with protected environment. 6. Patient will be treated with individual, group, and milieu therapies. 7. Patient will receive supportive psych-education. 8. Discharge planning will commence immediately. 9. Outpatient follow-up treatment will be strongly recommended. 10. The initial treatment plan will focus initially on: * Depression. * Risk for suicide. * Polysubstance use disorder * Impulsive behavior * Ineffective coping ESTIMATED LENGTH OF STAY: 5-7 TIME SPENT COUNSELING AND COORDINATING INITIAL CARE: 40 minutes. Tobacco Cessation Screen If Patient is a Smoker no Ordered/Pending Vital Signs Vital Signs Date Time Temp Pulse Resp B/P (MAP) Pulse Ox O2 Delivery O2 Flow Rate FiO2 03/03/21 06:00 97.8 60 18 100/58 (72) 95 03/02/21 15:54 Room Air Laboratory Data 24H Labs Laboratory Tests 2 03/03/21 13:10: Anion Gap 6L, Glomerular Filtration Rate > 60.0, Calcium Level 8.9, Total Creatine Kinase 870H CBC/BMP Laboratory Tests 03/03/21 13:10 Medications Scheduled Clonazepam (Clonazepam) 1 Mg Tablet, 1 MG PO BID Gabapentin (Gabapentin) 100 Mg Capsule, 100 MG PO TID, (Reported) Olanzapine (Olanzapine) 10 Mg Tablet, 10 MG PO TID Omeprazole (Omeprazole) 40 Mg Cap, 40 MG PO QHS, (Reported) Prazosin Hcl (Prazosin HCl) 2 Mg Cap, 2 MG PO QHS, (Reported) Testosterone Cypionate (Testosterone Cypionate) 200 Mg/Ml Inj, 100 MG IM QWEEK, (Reported) MONDAYS Trazodone HCl (Trazodone HCl) 150 Mg Tablet, 150 MG PO QHS, (Reported) Vitamin E (Vitamin E) 400 Unit Capsule, 400 UNIT PO DAILY, (Reported) Ziprasidone HCl (Ziprasidone HCl) 80 Mg Capsule, 160 MG PO QHS, (Reported) Scheduled PRN Loratadine (Loratadine) 10 Mg Tablet, 10 MG PO DAILY PRN for ALLERGY SYMPTOMS, (Reported) Allergies Coded Allergies: SEASONAL ALLERGIES (Unverified Allergy, Unknown, 11/26/17) egg (Verified Adverse Reaction, Unknown, INTOLERANCE, 02/28/21) ANGELLA GERARDO MD Mar 03, 2021 14:37
[2021-03-03] MEDS: OMEPRAZOLE 20 MG CAP PO SCH (20:21)
[2021-03-03] MEDS: traZODone 50 MG TAB PO PRN (20:21)
[2021-03-03] MEDS: PRAZOSIN 1 MG CAP PO SCH (20:22)
[2021-03-03] MEDS ORDERED: **NOTE PATIENT COMMENT** MISC XX SCH (21:00)
[2021-03-04 06:10] VITALS: BP 97/53
[2021-03-04] MEDS: clonazePAM 1 MG TAB PO SCH (07:58)
[2021-03-04] MEDS: GABAPENTIN 100 MG CAP PO SCH ×3 (07:58→20:07)
[2021-03-04] MEDS: OLANZapine 10 MG TAB PO SCH ×3 (07:58→20:06)
[2021-03-04] MEDS: ACETAMINOPHEN TAB 650MG DOSE (2X325MG) PO PRN ×2 (08:00→14:29)
--- NOTE | 2021-03-04 13:18 | MHIPNPDOC ---
[facility] Progress Note Progress Note DATE OF SERVICE: 03/04/21 HISTORY: Patient is a 40 -year-old , male, who, as per Hospitalist note: "40-year-old transgender male, genotype female, with a history of GERD, ADHD, bipolar, anxiety, PSUD who presented to the ED reporting suicidal ideation seeking psychiatric evaluation and treatment and when the ED provider came in to evaluate him he was acting bizzare, reporting that he did not know why he was here, became agitated, and reported that he did crystal meth yesterday. He denied any chest pain, abdominal pain, SOB, fever, chills, was tangential, restless, fidgety and had a 1:1 sitter ordered for the bizzare behavior and reported suicidality. Shortly after evaluation the team was urgently called bythe sitter to the bedside as he had tied his cords around his neck and was trying to strangle himself and had to struggle to remove the tight wrapped cord. He was given midazolam with good effect. CT head revealed no acute pathology as did CXR. Labs were notable for CK 2351, Cr was at his baseline of 1.11, na 138, K 3.4 (was repleted with 40 PO K), WBC 9.2, hgb 15.8, platelets 231, TSH 1.24, AST 77, ALT 54. He is now being admitted to medicine of rhabdomyolysis i/s/o crystal meth use with associated agitation and suicidal ideation. " Interval: Charts reviewed, patient seen lying in bed, despondent, verbalizes that he continues to have low mood but no acute suicidal impulses. Was not agitated, denies responding to internal stimuli but is looking at the wall and is flat in affect. When asked about collateral, is despondent poorly cooperative. Plan to reengage on subsequent interviews. This report was requested by: Jayson Delgado | Reference #: [id number], has a history of prescribed Adderall and lorazepam. VITAL SIGNS: See below. NEW TEST RESULTS: 03/03: Vascular ultrasound from March 03, 2021, obtained due to right-hand swelling, shows small thrombus in the distal cephalic vein, per medicine most likely due to IV, recommends supportive care, warm compresses and Tylenol. Lipid panel unremarkable apart from low HDL, fasting glucose elevated at 125 CURRENT MEDICATIONS: See below. MENTAL STATUS EXAMINATION: Patient is a 40-year old male, who is lying in bed, with septal nose ring, long hair, staring at things in the room but not making eye contact, thin, appears stated age Speech: Is minimal, impoverished, nonspontaneous. Language skills are poor. Thought processes including: Circumstantial, has some thought blocking. Thought content: Denies suicidal intent or plan, denies psychotic symptoms, but is withdrawn and poorly cooperative with interview. Abstract reasoning, and computation: Delayed, poor description of associations: Does not engage further in conversation. Description of abnormal or psychotic thoughts: Possibly internally preoccupied, poor and engaged in conversation. Judgment: Poor. Insight: Poor. Orientation: X3. Recent and remote memory: Poor. Attention span and concentration: Decreased. Language: Grenadian. Fund of knowledge: Below average. Mood: Depressed. Affect: Dysthymic, withdrawn, possibly internally preoccupied, not agitated or aggressive DIAGNOSES: 1. Unspecified psychotic disorder 2. Substance induced psychosis 3. Polysubstance use disorder 4. R/O schizoaffective disorder 5. R/O personality disorder ASSESSMENT: Patient continues to be withdrawn, possibly internally preoccupied, despondent and dysthymic on interview. Denies any acute physical complaints and reports tolerates medications without side effects apart from some possible sedation. Agrees to continuing on current regimen at this time. MANAGEMENT PLAN: Ordered supportive warm compresses daily per medical team recommendations and Tylenol for small thrombus of distal cephalic vein. Continue on olanzapine 10 mg 3 times daily for acute psychosis stabilization. Continue gabapentin for anxiety. continue prazosin for nightmares and anxiety. Discontinue clonazepam due to history of substance abuse, CIWA in place. TIME SPENT: 20 minutes. Vital Signs Vital Signs Date Time Temp Pulse Resp B/P (MAP) Pulse Ox O2 Delivery O2 Flow Rate FiO2 03/04/21 06:10 97.7 60 16 97/53 (68) 97 Room Air Current Medications Current Medications Medications (Trade) Dose Ordered Sig/Bola Route PRN Reason Start Time Stop Time Status Last Admin Dose Admin Acetaminophen (Tylenol Tab) 650 mg Q6HP PRN PO HEADACHE OR MILD DISCOMFORT 03/03/21 03:55 03/04/21 08:00 Al Hydrox/Mg Hydrox/Simethicone (Mylanta) 30 ml Q4HP PRN PO HEARTBURN/INDIGESTION 03/02/21 15:00 03/02/21 16:04 DC Al Hydrox/Mg Hydrox/Simethicone (Mylanta) 30 ml Q4HP PRN PO HEARTBURN/INDIGESTION 03/02/21 16:00 Clonazepam (KlonoPIN) 1 mg BID PO 03/02/21 21:00 03/02/21 16:04 DC Clonazepam (KlonoPIN) 1 mg BID PO 03/02/21 21:00 03/04/21 07:58 Gabapentin (Neurontin) 100 mg TID PO 03/02/21 16:00 03/02/21 16:04 DC Gabapentin (Neurontin) 100 mg TID PO 03/02/21 16:00 03/04/21 07:58 Loratadine (Claritin) 10 mg DAILYPRN PO 03/02/21 15:05 03/02/21 16:04 DC Loratadine (Claritin) 10 mg DAILYPRN PO 03/02/21 16:00 Magnesium Hydroxide (Milk Of Magnesia) 30 ml DAILYPRN PRN PO CONSTIPATION 03/02/21 15:00 03/02/21 16:04 DC Magnesium Hydroxide (Milk Of Magnesia) 30 ml DAILYPRN PRN PO CONSTIPATION 03/02/21 16:00 Non-Formulary Medication ( See Comment Field Below ) REMOVE LIDODERM PATCH DAILY@ XX 03/03/21 21:00 03/03/21 04:23 DC Olanzapine (ZyPREXA) 10 mg TID PO 03/02/21 16:00 03/02/21 16:04 DC Olanzapine (ZyPREXA) 10 mg TID PO 03/02/21 16:00 03/04/21 07:58 Omeprazole (PriLOSEC) 40 mg QHS PO 03/02/21 21:00 03/02/21 16:04 DC Omeprazole (PriLOSEC) 40 mg QHS PO 03/02/21 21:00 03/03/21 20:21 Prazosin HCl (Minipress) 2 mg QHS PO 03/02/21 21:00 03/02/21 16:04 DC Prazosin HCl (Minipress) 2 mg QHS PO 03/02/21 21:00 03/03/21 20:22 Trazodone HCl (Desyrel) 150 mg QHSP PRN PO INSOMNIA 03/02/21 15:00 03/02/21 16:04 DC Trazodone HCl (Desyrel) 150 mg QHSP PRN PO INSOMNIA 03/02/21 16:00 03/03/21 20:21 Allergies Coded Allergies: SEASONAL ALLERGIES (Unverified Allergy, Unknown, 11/26/17) egg (Verified Adverse Reaction, Unknown, INTOLERANCE, 02/28/21) JAYSON DELGADO MD Mar 04, 2021 13:18
[2021-03-04] MEDS ORDERED: LORazepam 2 MG TAB PO PRN (13:30)
[2021-03-04 14:23] VITALS: BP 120/60
[2021-03-04] MEDS: THIAMINE 100 MG TAB PO SCH ×2 (14:29→20:06)
[2021-03-04] MEDS: MULTIVITAMINS/MINERALS THERAP 1 TAB PO SCH (14:30)
[2021-03-04] MEDS: FOLIC ACID 1 MG TAB PO SCH (14:30)
[2021-03-04 16:24] VITALS: BP 120/60
[2021-03-04] MEDS: traZODone 50 MG TAB PO PRN (20:06)
[2021-03-04] MEDS: PRAZOSIN 1 MG CAP PO SCH (20:07)
[2021-03-04] MEDS: OMEPRAZOLE 20 MG CAP PO SCH (20:07)
[2021-03-04 20:19] LABS: CHOLESTEROL RISK RATIO 4.937 (<5)
[2021-03-05 05:51] VITALS: BP 108/64
[2021-03-05 06:42] VITALS: BP 108/64
[2021-03-05 07:55] VITALS: BP 123/61
[2021-03-05] MEDS: MULTIVITAMINS/MINERALS THERAP 1 TAB PO SCH (07:59)
[2021-03-05] MEDS: THIAMINE 100 MG TAB PO SCH ×2 (07:59→20:07)
[2021-03-05] MEDS: ACETAMINOPHEN TAB 650MG DOSE (2X325MG) PO PRN (07:59)
[2021-03-05] MEDS: FOLIC ACID 1 MG TAB PO SCH (07:59)
[2021-03-05] MEDS: GABAPENTIN 100 MG CAP PO SCH ×3 (07:59→20:06)
[2021-03-05] MEDS: OLANZapine 10 MG TAB PO SCH ×3 (08:00→20:06)
--- NOTE | 2021-03-05 13:56 | MHIPNPDOC ---
[facility] Progress Note Progress Note DATE OF SERVICE: 03/05/21 HISTORY: Patient is a 40 -year-old , male, who, as per Hospitalist note: "40-year-old transgender male, genotype female, with a history of GERD, ADHD, bipolar, anxiety, PSUD who presented to the ED reporting suicidal ideation seeking psychiatric evaluation and treatment and when the ED provider came in to evaluate him he was acting bizzare, reporting that he did not know why he was here, became agitated, and reported that he did crystal meth yesterday. He denied any chest pain, abdominal pain, SOB, fever, chills, was tangential, restless, fidgety and had a 1:1 sitter ordered for the bizzare behavior and reported suicidality. Shortly after evaluation the team was urgently called bythe sitter to the bedside as he had tied his cords around his neck and was trying to strangle himself and had to struggle to remove the tight wrapped cord. He was given midazolam with good effect. CT head revealed no acute pathology as did CXR. Labs were notable for CK 2351, Cr was at his baseline of 1.11, na 138, K 3.4 (was repleted with 40 PO K), WBC 9.2, hgb 15.8, platelets 231, TSH 1.24, AST 77, ALT 54. He is now being admitted to medicine of rhabdomyolysis i/s/o crystal meth use with associated agitation and suicidal ideation. " Interval: Charts reviewed, patient spends most of his time isolated to room, has dysthymic affect, withdrawn. Per social work reach out he is reserved at baseline, partner unclear about relationship status if they will be , recently infidelities were found out by partner which led interpersonal conflicts between them. Has been attending groups. When discussing what brought him into the hospital states "it is the drugs". Education provided regarding substance use. VITAL SIGNS: See below. NEW TEST RESULTS: 03/03: Vascular ultrasound from March 03, 2021, obtained due to right-hand swelling, shows small thrombus in the distal cephalic vein, per medicine most likely due to IV, recommends supportive care, warm compresses and Tylenol. Lipid panel unremarkable apart from low HDL, fasting glucose elevated at 125 CURRENT MEDICATIONS: See below. MENTAL STATUS EXAMINATION: Patient is a 40-year old male, who is lying in bed, with septal nose ring, long hair, staring at things in the room but not making eye contact, thin, appears stated age Speech: Is increased in amount, spontaneous Language skills are improving Thought processes including: Linear logical Thought content: Denies suicidal intent or plan, denies psychotic symptoms Abstract reasoning, and computation: Delayed, poor description of associations: Does not engage further in conversation. Description of abnormal or psychotic thoughts: Possibly internally preoccupied, poor and engaged in conversation. Judgment: Poor. Insight: Poor. Orientation: X3. Recent and remote memory: Poor. Attention span and concentration: Decreased. Language: Georgian. Fund of knowledge: Below average. Mood: 'okay". Affect: No change, sullen dysthymic, withdrawn, possibly internally preoccupied, not agitated or aggressive DIAGNOSES: 1. Unspecified psychotic disorder 2. Substance induced psychosis 3. Polysubstance use disorder 4. R/O schizoaffective disorder 5. R/O personality disorder ASSESSMENT: Patient continues to be dysthymic, lying in bed, withdrawn, seems to have little insight into state of relationship. Due to severity of multiple suicide attempts while in the hospital continues to require inpatient stay for acute stabilization and safety planning. MANAGEMENT PLAN: Continue supportive warm compresses daily per medical team recommendations and Tylenol for small thrombus of distal cephalic vein. Continue on olanzapine 10 mg 3 times daily for acute psychosis stabilization. Continue gabapentin for anxiety. continue prazosin for nightmares and anxiety. Discontinue clonazepam due to history of substance abuse, CIWA in place. Motiva tional interviewing for substance use. TIME SPENT: 20 minutes. Vital Signs Vital Signs Date Time Temp Pulse Resp B/P (MAP) Pulse Ox O2 Delivery O2 Flow Rate FiO2 03/05/21 10:05 Room Air 03/05/21 07:55 103 123/61 03/05/21 05:51 97.3 16 98 Laboratory Data 24H Labs Laboratory Tests 2 03/04/21 19:35: Triglycerides Level 182H, Total Cholesterol 158, LDL Cholesterol 90, Non-HDL Cholesterol (LDL + VLDL) 126, Total HDL Cholesterol 32L, Cholesterol/HDL Ratio 4.937 Current Medications Current Medications Medications (Trade) Dose Ordered Sig/Bola Route PRN Reason Start Time Stop Time Status Last Admin Dose Admin Acetaminophen (Tylenol Tab) 650 mg Q6HP PRN PO HEADACHE OR MILD DISCOMFORT 03/03/21 03:55 03/05/21 07:59 Al Hydrox/Mg Hydrox/Simethicone (Mylanta) 30 ml Q4HP PRN PO HEARTBURN/INDIGESTION 03/02/21 15:00 03/02/21 16:04 DC Al Hydrox/Mg Hydrox/Simethicone (Mylanta) 30 ml Q4HP PRN PO HEARTBURN/INDIGESTION 03/02/21 16:00 Clonazepam (KlonoPIN) 1 mg BID PO 03/02/21 21:00 03/02/21 16:04 DC Clonazepam (KlonoPIN) 1 mg BID PO 03/02/21 21:00 03/04/21 13:31 DC 03/04/21 07:58 Folic Acid (Folic Acid) 1 mg DAILY PO 03/04/21 09:00 03/05/21 07:59 Gabapentin (Neurontin) 100 mg TID PO 03/02/21 16:00 03/02/21 16:04 DC Gabapentin (Neurontin) 100 mg TID PO 03/02/21 16:00 03/05/21 07:59 Loratadine (Claritin) 10 mg DAILYPRN PO 03/02/21 15:05 03/02/21 16:04 DC Loratadine (Claritin) 10 mg DAILYPRN PO 03/02/21 16:00 Lorazepam (Ativan) 2 mg ASDIRECTED PRN PO SEE PROTOCOL 03/04/21 13:30 03/04/21 14:29 Magnesium Hydroxide (Milk Of Magnesia) 30 ml DAILYPRN PRN PO CONSTIPATION 03/02/21 15:00 03/02/21 16:04 DC Magnesium Hydroxide (Milk Of Magnesia) 30 ml DAILYPRN PRN PO CONSTIPATION 03/02/21 16:00 Multivitamins (Theragram-M) 1 tab DAILY PO 03/04/21 09:00 03/05/21 07:59 Non-Formulary Medication ( See Comment Field Below ) REMOVE LIDODERM PATCH DAILY@ XX 03/03/21 21:00 03/03/21 04:23 DC Olanzapine (ZyPREXA) 10 mg TID PO 03/02/21 16:00 03/02/21 16:04 DC Olanzapine (ZyPREXA) 10 mg TID PO 03/02/21 16:00 03/05/21 08:00 Omeprazole (PriLOSEC) 40 mg QHS PO 03/02/21 21:00 03/02/21 16:04 DC Omeprazole (PriLOSEC) 40 mg QHS PO 03/02/21 21:00 03/04/21 20:07 Prazosin HCl (Minipress) 2 mg QHS PO 03/02/21 21:00 03/02/21 16:04 DC Prazosin HCl (Minipress) 2 mg QHS PO 03/02/21 21:00 03/04/21 20:07 Thiamine HCl (Thiamine HCl) 100 mg BID PO 03/04/21 09:00 03/06/21 21:01 03/05/21 07:59 Trazodone HCl (Desyrel) 150 mg QHSP PRN PO INSOMNIA 03/02/21 15:00 03/02/21 16:04 DC Trazodone HCl (Desyrel) 150 mg QHSP PRN PO INSOMNIA 03/02/21 16:00 03/04/21 20:06 Allergies Coded Allergies: SEASONAL ALLERGIES (Unverified Allergy, Unknown, 11/26/17) egg (Verified Adverse Reaction, Unknown, INTOLERANCE, 02/28/21) MINOR DELGADO MD Mar 05, 2021 13:56
[2021-03-05] MEDS ORDERED: LIDOCAINE 5% (LIDODERM) PATCH TD ONE (15:50)
[2021-03-05 16:05] VITALS: BP 121/69
[2021-03-05] MEDS: OMEPRAZOLE 20 MG CAP PO SCH (20:06)
[2021-03-05] MEDS: traZODone 50 MG TAB PO PRN (20:07)
[2021-03-05] MEDS: PRAZOSIN 1 MG CAP PO SCH (20:07)
[2021-03-06] MEDS ORDERED: **NOTE PATIENT COMMENT** MISC XX ONE (06:00)
[2021-03-06 06:52] VITALS: BP 103/56
[2021-03-06] MEDS: GABAPENTIN 100 MG CAP PO SCH ×3 (08:08→20:11)
[2021-03-06] MEDS: FOLIC ACID 1 MG TAB PO SCH (08:08)
[2021-03-06] MEDS: MULTIVITAMINS/MINERALS THERAP 1 TAB PO SCH (08:08)
[2021-03-06] MEDS: OLANZapine 10 MG TAB PO SCH ×3 (08:09→20:10)
[2021-03-06] MEDS: ACETAMINOPHEN TAB 650MG DOSE (2X325MG) PO PRN ×3 (08:09→21:24)
--- NOTE | 2021-03-06 09:53 | MHIPNPDOC ---
[facility], [place] Progress Note Progress Note DATE OF SERVICE: 03/06/21 HISTORY: Patient is a 40 -year-old , male, who, as per Hospitalist note: "40-year-old transgender male, genotype female, with a history of GERD, ADHD, bipolar, anxiety, PSUD who presented to the ED reporting suicidal ideation seeking psychiatric evaluation and treatment and when the ED provider came in to evaluate him he was acting bizzare, reporting that he did not know why he was here, became agitated, and reported that he did crystal meth yesterday. He denied any chest pain, abdominal pain, SOB, fever, chills, was tangential, restless, fidgety and had a 1:1 sitter ordered for the bizzare behavior and reported suicidality. Shortly after evaluation the team was urgently called bythe sitter to the bedside as he had tied his cords around his neck and was trying to strangle himself and had to struggle to remove the tight wrapped cord. He was given midazolam with good effect. CT head revealed no acute pathology as did CXR. Labs were notable for CK 2351, Cr was at his baseline of 1.11, na 138, K 3.4 (was repleted with 40 PO K), WBC 9.2, hgb 15.8, platelets 231, TSH 1.24, AST 77, ALT 54. He is now being admitted to medicine of rhabdomyolysis i/s/o crystal meth use with associated agitation and suicidal ideation. " Interval: Charts reviewed, has been attending groups, but reports sleeping in because " I could not sleep because the this bed is uncomfortable", when asked about mood states "I feel good mentally". Patient appears withdrawn, dysthymic, poorly engaged with non-spontaneous speech. Also states that anxiety may be a little bit elevated because he is now off his benzodiazepine medication, but no clear withdrawal symptoms, tremors, acute sympathetic activity. Denies acute physical complaints, was offered medication for mood/anxiety but feels he does not need anything for depression. VITAL SIGNS: See below. NEW TEST RESULTS: None CURRENT MEDICATIONS: See below. MENTAL STATUS EXAMINATION: Patient is a 40-year old male, who is lying in bed, with septal nose ring, long hair, staring at things in the room but not making eye contact, thin, appears stated age Speech: Is increased in amount, spontaneous Language skills are improving Thought processes including: Linear logical Thought content: Denies suicidal intent or plan, denies psychotic symptoms Abstract reasoning, and computation: Delayed, poor description of associations: Denies Description of abnormal or psychotic thoughts: Denies Judgment: Poor. Insight: Poor. Orientation: X3. Recent and remote memory: Intact Attention span and concentration: Decreased. Language: Sri [place]ankan. Fund of knowledge: Below average. Mood: " I am mentally fine". Affect: Dysthymic, withdrawn, not agitated or aggressive DIAGNOSES: 1. Unspecified psychotic disorder 2. Substance induced psychosis 3. Polysubstance use disorder 4. R/O schizoaffective disorder 5. R/O personality disorder ASSESSMENT: Patient continues to be withdrawn, reports tolerated medication without side effects, denies depression but appears withdrawn and sullen, due to severity of multiple suicide attempts while in the hospital continues to require inpatient stay for acute stabilization and safety planning. MANAGEMENT PLAN: Continue supportive warm compresses daily per medical team recommendations and Tylenol for small thrombus of distal cephalic vein. Continue on olanzapine 10 mg 3 times daily for acute psychosis stabilization. Continue gabapentin for anxiety. continue prazosin for nightmares and anxiety. Motivational interviewing for substance use. TIME SPENT: 15 minutes. Vital Signs Vital Signs Date Time Temp Pulse Resp B/P (MAP) Pulse Ox O2 Delivery O2 Flow Rate FiO2 03/06/21 08:57 Room Air 03/06/21 06:52 98.7 71 20 103/56 (72) 96 Current Medications Current Medications Medications (Trade) Dose Ordered Sig/Bola Route PRN Reason Start Time Stop Time Status Last Admin Dose Admin Acetaminophen (Tylenol Tab) 650 mg Q6HP PRN PO HEADACHE OR MILD DISCOMFORT 03/03/21 03:55 03/06/21 08:09 Al Hydrox/Mg Hydrox/Simethicone (Mylanta) 30 ml Q4HP PRN PO HEARTBURN/INDIGESTION 03/02/21 15:00 03/02/21 16:04 DC Al Hydrox/Mg Hydrox/Simethicone (Mylanta) 30 ml Q4HP PRN PO HEARTBURN/INDIGESTION 03/02/21 16:00 Clonazepam (KlonoPIN) 1 mg BID PO 03/02/21 21:00 03/02/21 16:04 DC Clonazepam (KlonoPIN) 1 mg BID PO 03/02/21 21:00 03/04/21 13:31 DC 03/04/21 07:58 Folic Acid (Folic Acid) 1 mg DAILY PO 03/04/21 09:00 03/06/21 08:08 Gabapentin (Neurontin) 100 mg TID PO 03/02/21 16:00 03/02/21 16:04 DC Gabapentin (Neurontin) 100 mg TID PO 03/02/21 16:00 03/06/21 08:08 Loratadine (Claritin) 10 mg DAILYPRN PO 03/02/21 15:05 03/02/21 16:04 DC Loratadine (Claritin) 10 mg DAILYPRN PO 03/02/21 16:00 Lorazepam (Ativan) 2 mg ASDIRECTED PRN PO SEE PROTOCOL 03/04/21 13:30 03/06/21 05:11 DC 03/04/21 14:29 Magnesium Hydroxide (Milk Of Magnesia) 30 ml DAILYPRN PRN PO CONSTIPATION 03/02/21 15:00 03/02/21 16:04 DC Magnesium Hydroxide (Milk Of Magnesia) 30 ml DAILYPRN PRN PO CONSTIPATION 03/02/21 16:00 Multivitamins (Theragram-M) 1 tab DAILY PO 03/04/21 09:00 03/06/21 08:08 Non-Formulary Medication ( See Comment Field Below ) REMOVE LIDODERM PATCH DAILY@ XX 03/03/21 21:00 03/03/21 04:23 DC Olanzapine (ZyPREXA) 10 mg TID PO 03/02/21 16:00 03/02/21 16:04 DC Olanzapine (ZyPREXA) 10 mg TID PO 03/02/21 16:00 03/06/21 08:09 Omeprazole (PriLOSEC) 40 mg QHS PO 03/02/21 21:00 03/02/21 16:04 DC Omeprazole (PriLOSEC) 40 mg QHS PO 03/02/21 21:00 03/05/21 20:06 Prazosin HCl (Minipress) 2 mg QHS PO 03/02/21 21:00 03/02/21 16:04 DC Prazosin HCl (Minipress) 2 mg QHS PO 03/02/21 21:00 03/05/21 20:07 Thiamine HCl (Thiamine HCl) 100 mg BID PO 03/04/21 09:00 03/06/21 05:11 DC 03/05/21 20:07 Trazodone HCl (Desyrel) 150 mg QHSP PRN PO INSOMNIA 03/02/21 15:00 03/02/21 16:04 DC Trazodone HCl (Desyrel) 150 mg QHSP PRN PO INSOMNIA 03/02/21 16:00 03/05/21 20:07 Allergies Coded Allergies: SEASONAL ALLERGIES (Unverified Allergy, Unknown, 11/26/17) egg (Verified Adverse Reaction, Unknown, INTOLERANCE, 02/28/21) MINOR DELGADO MD Mar 06, 2021 09:53
[2021-03-06] MEDS ORDERED: ENTER DRUG NAME HERE (PATIENT'S OWN MED) SQ SCH (10:30)
[2021-03-06] MEDS: TESTOSTERONE CYPIONATE 200 MG/ML SQ SCH (12:12)
[2021-03-06 16:13] VITALS: BP 118/64
[2021-03-06] MEDS: OMEPRAZOLE 20 MG CAP PO SCH (20:10)
[2021-03-06] MEDS: traZODone 50 MG TAB PO PRN (20:11)
[2021-03-06] MEDS: PRAZOSIN 1 MG CAP PO SCH (20:11)
[2021-03-07 06:50] VITALS: BP 125/66
[2021-03-07] MEDS: ACETAMINOPHEN TAB 650MG DOSE (2X325MG) PO PRN ×3 (07:55→20:11)
[2021-03-07] MEDS: OLANZapine 10 MG TAB PO SCH ×3 (08:11→20:09)
[2021-03-07] MEDS: GABAPENTIN 100 MG CAP PO SCH ×3 (08:11→20:09)
[2021-03-07] MEDS: FOLIC ACID 1 MG TAB PO SCH (08:11)
[2021-03-07] MEDS: MULTIVITAMINS/MINERALS THERAP 1 TAB PO SCH (08:11)
--- NOTE | 2021-03-07 11:37 | MHIPNPDOC ---
[facility] Progress Note Progress Note DATE OF SERVICE: 03/07/21 HISTORY: Patient is a 40 -year-old , male, who, as per Hospitalist note: "40-year-old transgender male, genotype female, with a history of GERD, ADHD, bipolar, anxiety, PSUD who presented to the ED reporting suicidal ideation seeking psychiatric evaluation and treatment and when the ED provider came in to evaluate him he was acting bizarre, reporting that he did not know why he was here, became agitated, and reported that he did crystal meth yesterday. He denied any chest pain, abdominal pain, SOB, fever, chills, was tangential, restless, fidgety and had a 1:1 sitter ordered for the bizzare behavior and reported suicidality. Shortly after evaluation the team was urgently called bythe sitter to the bedside as he had tied his cords around his neck and was trying to strangle himself and had to struggle to remove the tight wrapped cord. He was given midazolam with good effect. CT head revealed no acute pathology as did CXR. Labs were notable for CK 2351, Cr was at his baseline of 1.11, na 138, K 3.4 (was repleted with 40 PO K), WBC 9.2, hgb 15.8, platelets 231, TSH 1.24, AST 77, ALT 54. He is now being admitted to medicine of rhabdomyolysis i/s/o crystal meth use with associated agitation and suicidal ideation. " Interval: Charts reviewed, has been attending groups but can go to group yesterday because there were not any available, patient reports some improvement in depressive symptoms, adverse drug use is a trigger for admission in context of infidelities. Patient also has some relief but he reported to staff of possibly returning home to his after stay. Discussed strategies patient used to cope with healing, developing safety plan. Agreeable to starting Wellbutrin 150 mg XL for mood and stimulant cravings, aware of common and rare side effects including reduced seizure threshold. Denies recent alcohol use or eating disorder. Feels olanzapine helps with sleep. States he has been tolerating medications without side effects, including his testosterone home medication. Does report decrease in mood when stopping the testosterone. VITAL SIGNS: See below. NEW TEST RESULTS: None CURRENT MEDICATIONS: See below. MENTAL STATUS EXAMINATION: Patient is a 40-year old male, who is sitting in bed, with bridge nose ring, improved eye contact, thin, appears stated age Speech: Is normal rate and rhythm, spontaneous Language skills fair Thought processes including: Linear, logical Thought content: Denies suicidal intent or plan, denies psychotic symptoms Abstract reasoning, and computation: Intact description of associations: Denies Description of abnormal or psychotic thoughts: Denies Judgment: Improved Insight: Fair, improving Orientation: X3. Recent and remote memory: Intact Attention span and concentration: Improved Language: Yakut. Fund of knowledge: Below average. Mood: " Feels a bit better without the drugs". Affect: Dysthymic, withdrawn, not agitated or aggressive DIAGNOSES: 1. Unspecified psychotic disorder 2. Substance induced psychosis 3. Polysubstance use disorder 4. R/O schizoaffective disorder 5. R/O personality disorder ASSESSMENT: Patient continues to be somewhat withdrawn, constricted, due to severity of suicide attempts in hospital and need for stabilization, medication changes, patient requires further time on inpatient stay. MANAGEMENT PLAN: Continue supportive warm compresses daily per medical team recommendations and Tylenol for small thrombus of distal cephalic vein. Continue on olanzapine 10 mg 3 times daily for acute psychosis stabilization. Continue gabapentin for anxiety. Continue prazosin for nightmares and anxiety. Continue motivational interviewing for substance use. Agrees to start Wellbutrin 150 mg XL for mood and stimulant cravings. Per nursing, patient is possibly agreeable to inpatient rehab will try to coordinate this with social work, has been previously refused to sign releases. Started on testosterone 120 mg q. weekly. Denies side effects from restarting his testosterone. TIME SPENT: 30 minutes. Vital Signs Vital Signs Date Time Temp Pulse Resp B/P (MAP) Pulse Ox O2 Delivery O2 Flow Rate FiO2 03/07/21 09:14 Room Air 03/07/21 06:50 99.3 70 14 125/66 (85) 97 Current Medications Current Medications Medications (Trade) Dose Ordered Sig/Bola Route PRN Reason Start Time Stop Time Status Last Admin Dose Admin Acetaminophen (Tylenol Tab) 650 mg Q6HP PRN PO HEADACHE OR MILD DISCOMFORT 03/03/21 03:55 03/07/21 07:55 Al Hydrox/Mg Hydrox/Simethicone (Mylanta) 30 ml Q4HP PRN PO HEARTBURN/INDIGESTION 03/02/21 15:00 03/02/21 16:04 DC Al Hydrox/Mg Hydrox/Simethicone (Mylanta) 30 ml Q4HP PRN PO HEARTBURN/INDIGESTION 03/02/21 16:00 Clonazepam (KlonoPIN) 1 mg BID PO 03/02/21 21:00 03/02/21 16:04 DC Clonazepam (KlonoPIN) 1 mg BID PO 03/02/21 21:00 03/04/21 13:31 DC 03/04/21 07:58 Folic Acid (Folic Acid) 1 mg DAILY PO 03/04/21 09:00 03/07/21 08:11 Gabapentin (Neurontin) 100 mg TID PO 03/02/21 16:00 03/02/21 16:04 DC Gabapentin (Neurontin) 100 mg TID PO 03/02/21 16:00 03/07/21 08:11 Loratadine (Claritin) 10 mg DAILYPRN PO 03/02/21 15:05 03/02/21 16:04 DC Loratadine (Claritin) 10 mg DAILYPRN PO 03/02/21 16:00 Lorazepam (Ativan) 2 mg ASDIRECTED PRN PO SEE PROTOCOL 03/04/21 13:30 03/06/21 05:11 DC 03/04/21 14:29 Magnesium Hydroxide (Milk Of Magnesia) 30 ml DAILYPRN PRN PO CONSTIPATION 03/02/21 15:00 03/02/21 16:04 DC Magnesium Hydroxide (Milk Of Magnesia) 30 ml DAILYPRN PRN PO CONSTIPATION 03/02/21 16:00 Multivitamins (Theragram-M) 1 tab DAILY PO 03/04/21 09:00 03/07/21 08:11 Non-Formulary Medication ( See Comment Field Below ) REMOVE LIDODERM PATCH DAILY@ XX 03/03/21 21:00 03/03/21 04:23 DC Olanzapine (ZyPREXA) 10 mg TID PO 03/02/21 16:00 03/02/21 16:04 DC Olanzapine (ZyPREXA) 10 mg TID PO 03/02/21 16:00 03/07/21 08:11 Omeprazole (PriLOSEC) 40 mg QHS PO 03/02/21 21:00 03/02/21 16:04 DC Omeprazole (PriLOSEC) 40 mg QHS PO 03/02/21 21:00 03/06/21 20:10 Patient Own Medication (Patient'S Own Med) 1 ea Q7D SQ 03/06/21 10:30 UNV Patient Own Medication (Pt Own Med *Controlled Subst*) 120MG = 0.6ML Mo@0900 SQ 03/06/21 12:00 03/06/21 12:12 Prazosin HCl (Minipress) 2 mg QHS PO 03/02/21 21:00 03/02/21 16:04 DC Prazosin HCl (Minipress) 2 mg QHS PO 03/02/21 21:00 03/06/21 20:11 Thiamine HCl (Thiamine HCl) 100 mg BID PO 03/04/21 09:00 03/06/21 05:11 DC 03/05/21 20:07 Trazodone HCl (Desyrel) 150 mg QHSP PRN PO INSOMNIA 03/02/21 15:00 03/02/21 16:04 DC Trazodone HCl (Desyrel) 150 mg QHSP PRN PO INSOMNIA 03/02/21 16:00 03/06/21 20:11 Allergies Coded Allergies: SEASONAL ALLERGIES (Unverified Allergy, Unknown, 11/26/17) egg (Verified Adverse Reaction, Unknown, INTOLERANCE, 02/28/21) MINOR DELGADO MD Mar 07, 2021 11:37
[2021-03-07] MEDS ORDERED: LIDOCAINE 5% (LIDODERM) PATCH TD SCH (12:50)
[2021-03-07] MEDS: buPROPion **XL** TABLET 150MG (WELLBUTRIN XL) PO SCH (12:56)
[2021-03-07] MEDS: LIDOCAINE 5% (LIDODERM) PATCH TD SCH (12:56)
[2021-03-07 14:00] VITALS: BP 152/75
[2021-03-07 16:00] VITALS: BP 152/75
[2021-03-07] MEDS: OMEPRAZOLE 20 MG CAP PO SCH (20:07)
[2021-03-07] MEDS: traZODone 50 MG TAB PO PRN (20:08)
[2021-03-07] MEDS: PRAZOSIN 1 MG CAP PO SCH (20:09)
[2021-03-08 06:29] VITALS: BP 116/56
[2021-03-08] MEDS: ACETAMINOPHEN TAB 650MG DOSE (2X325MG) PO PRN ×3 (07:22→19:38)
[2021-03-08] MEDS: GABAPENTIN 100 MG CAP PO SCH ×3 (08:28→20:02)
[2021-03-08] MEDS: FOLIC ACID 1 MG TAB PO SCH (08:28)
[2021-03-08] MEDS: OLANZapine 10 MG TAB PO SCH ×3 (08:28→20:02)
[2021-03-08] MEDS: buPROPion **XL** TABLET 150MG (WELLBUTRIN XL) PO SCH (08:28)
[2021-03-08] MEDS: MULTIVITAMINS/MINERALS THERAP 1 TAB PO SCH (08:28)
[2021-03-08] MEDS: LIDOCAINE 5% (LIDODERM) PATCH TD SCH (08:29)
[2021-03-08 09:56] VITALS: BP 116/56
--- NOTE | 2021-03-08 10:25 | MHIPNPDOC ---
[facility] Progress Note Progress Note DATE OF SERVICE: 03/08/21 HISTORY: Patient is a 40 -year-old , male, who, as per Hospitalist note: "40-year-old transgender male, genotype female, with a history of GERD, ADHD, bipolar, anxiety, PSUD who presented to the ED reporting suicidal ideation seeking psychiatric evaluation and treatment and when the ED provider came in to evaluate him he was acting bizarre, reporting that he did not know why he was here, became agitated, and reported that he did crystal meth yesterday. He denied any chest pain, abdominal pain, SOB, fever, chills, was tangential, restless, fidgety and had a 1:1 sitter ordered for the bizzare behavior and reported suicidality. Shortly after evaluation the team was urgently called bythe sitter to the bedside as he had tied his cords around his neck and was trying to strangle himself and had to struggle to remove the tight wrapped cord. He was given midazolam with good effect. CT head revealed no acute pathology as did CXR. Labs were notable for CK 2351, Cr was at his baseline of 1.11, na 138, K 3.4 (was repleted with 40 PO K), WBC 9.2, hgb 15.8, platelets 231, TSH 1.24, AST 77, ALT 54. He is now being admitted to medicine of rhabdomyolysis i/s/o crystal meth use with associated agitation and suicidal ideation. " Interval: Charts reviewed, patient continues to improve on the unit, reports improvements in mood and energy with Wellbutrin although he states he took it later yesterday than he would have liked and prefers to take it in the morning as he sleep was reduced. Identifies drug use and potential break-up is precipitating factors for suicidal behavior. When asked if he is interested in inpatient rehab states he prefer not to go and rather go to [facility] walk in. VITAL SIGNS: See below. NEW TEST RESULTS: None CURRENT MEDICATIONS: See below. MENTAL STATUS EXAMINATION: Patient is a 40-year old male, who is sitting in bed, with bridge nose ring, improved eye contact, average build, appears stated age Speech: Is normal rate and rhythm, spontaneous Language skills fair Thought processes including: Linear, logical Thought content: Denies suicidal intent or plan, denies psychotic symptoms Abstract reasoning, and computation: Intact description of associations: Denies Description of abnormal or psychotic thoughts: Denies Judgment: Improved Insight: Fair, improving Orientation: X3. Recent and remote memory: Intact Attention span and concentration: Improved Language: Yi. Fund of knowledge: Below average. Mood: " Getting better". Affect: Less dysthymic, constricted, not agitated or aggressive DIAGNOSES: 1. Unspecified psychotic disorder 2. Substance induced psychosis 3. Polysubstance use disorder 4. R/O schizoaffective disorder 5. R/O personality disorder ASSESSMENT: President patient's mood continues to improve on the unit, made aware of possible discharge in the next week if continues to improve. Denies medication side effects or acute physical complaints apart from lower back pain which is relieved with lidocaine patch. MANAGEMENT PLAN: Continue supportive warm compresses daily per medical team recommendations and Tylenol for small thrombus of distal cephalic vein. Continue on olanzapine 10 mg 3 times daily for acute psychosis stabilization. Continue gabapentin for anxiety. Continue prazosin for nightmares and anxiety. Continue motivational interviewing for substance use. Continue Wellbutrin 150 mg XL for mood and stimulant cravings. Patient refusing inpatient rehab at this time, agreeable to outpatient treatment. Also discussed that he should join Alcoholics Anonymous and get a sponsor to maintain sobriety. Motivational int erviewing/education given regarding substance use, risks, side effects, patient is contemplative. Continue on testosterone 120 mg q. weekly. Denies side effects from restarting his testosterone. TIME SPENT: 15 minutes. Vital Signs Vital Signs Date Time Temp Pulse Resp B/P (MAP) Pulse Ox O2 Delivery O2 Flow Rate FiO2 03/08/21 09:56 99.1 88 18 116/56 96 Room Air Current Medications Current Medications Medications (Trade) Dose Ordered Sig/Bola Route PRN Reason Start Time Stop Time Status Last Admin Dose Admin Acetaminophen (Tylenol Tab) 650 mg Q6HP PRN PO HEADACHE OR MILD DISCOMFORT 03/03/21 03:55 03/08/21 07:22 Al Hydrox/Mg Hydrox/Simethicone (Mylanta) 30 ml Q4HP PRN PO HEARTBURN/INDIGESTION 03/02/21 15:00 03/02/21 16:04 DC Al Hydrox/Mg Hydrox/Simethicone (Mylanta) 30 ml Q4HP PRN PO HEARTBURN/INDIGESTION 03/02/21 16:00 Bupropion HCl (Wellbutrin Xl) 150 mg DAILY PO 03/07/21 09:00 03/08/21 08:28 Clonazepam (KlonoPIN) 1 mg BID PO 03/02/21 21:00 03/02/21 16:04 DC Clonazepam (KlonoPIN) 1 mg BID PO 03/02/21 21:00 03/04/21 13:31 DC 03/04/21 07:58 Folic Acid (Folic Acid) 1 mg DAILY PO 03/04/21 09:00 03/08/21 08:28 Gabapentin (Neurontin) 100 mg TID PO 03/02/21 16:00 03/02/21 16:04 DC Gabapentin (Neurontin) 100 mg TID PO 03/02/21 16:00 03/08/21 08:28 Lidocaine (Lidoderm Patch) 1 patch DAILY TD 03/07/21 09:00 03/08/21 08:29 Lidocaine (Lidoderm Patch) 1 patch DAILY TD 03/07/21 12:50 03/07/21 12:52 DC Loratadine (Claritin) 10 mg DAILYPRN PO 03/02/21 15:05 03/02/21 16:04 DC Loratadine (Claritin) 10 mg DAILYPRN PO 03/02/21 16:00 Lorazepam (Ativan) 2 mg ASDIRECTED PRN PO SEE PROTOCOL 03/04/21 13:30 03/06/21 05:11 DC 03/04/21 14:29 Magnesium Hydroxide (Milk Of Magnesia) 30 ml DAILYPRN PRN PO CONSTIPATION 03/02/21 15:00 03/02/21 16:04 DC Magnesium Hydroxide (Milk Of Magnesia) 30 ml DAILYPRN PRN PO CONSTIPATION 03/02/21 16:00 Multivitamins (Theragram-M) 1 tab DAILY PO 03/04/21 09:00 03/08/21 08:28 Non-Formulary Medication ( See Comment Field Below ) REMOVE LIDODERM PATCH DAILY@21 XX 03/03/21 21:00 03/03/21 04:23 DC Non-Formulary Medication ( See Comment Field Below ) REMOVE LIDODERM PATCH DAILY@21 XX 03/07/21 21:00 03/07/21 21:47 Olanzapine (ZyPREXA) 10 mg TID PO 03/02/21 16:00 03/02/21 16:04 DC Olanzapine (ZyPREXA) 10 mg TID PO 03/02/21 16:00 03/08/21 08:28 Omeprazole (PriLOSEC) 40 mg QHS PO 03/02/21 21:00 03/02/21 16:04 DC Omeprazole (PriLOSEC) 40 mg QHS PO 03/02/21 21:00 03/07/21 20:07 Patient Own Medication (Patient'S Own Med) 1 ea Q7D SQ 03/06/21 10:30 UNV Patient Own Medication (Pt Own Med *Controlled Subst*) 120MG = 0.6ML Mo@0900 SQ 03/06/21 12:00 03/06/21 12:12 Prazosin HCl (Minipress) 2 mg QHS PO 03/02/21 21:00 03/02/21 16:04 DC Prazosin HCl (Minipress) 2 mg QHS PO 03/02/21 21:00 03/07/21 20:09 Thiamine HCl (Thiamine HCl) 100 mg BID PO 03/04/21 09:00 03/06/21 05:11 DC 03/05/21 20:07 Trazodone HCl (Desyrel) 150 mg QHSP PRN PO INSOMNIA 03/02/21 15:00 03/02/21 16:04 DC Trazodone HCl (Desyrel) 150 mg QHSP PRN PO INSOMNIA 03/02/21 16:00 03/07/21 20:08 Allergies Coded Allergies: SEASONAL ALLERGIES (Unverified Allergy, Unknown, 11/26/17) egg (Verified Adverse Reaction, Unknown, INTOLERANCE, 02/28/21) MINOR DELGADO MD Mar 08, 2021 10:25
[2021-03-08 16:11] VITALS: BP 127/72
[2021-03-08] MEDS: traZODone 50 MG TAB PO PRN (20:02)
[2021-03-08] MEDS: PRAZOSIN 1 MG CAP PO SCH (20:02)
[2021-03-08] MEDS: OMEPRAZOLE 20 MG CAP PO SCH (20:02)
[2021-03-09] MEDS: ACETAMINOPHEN TAB 650MG DOSE (2X325MG) PO PRN ×2 (05:46→12:51)
[2021-03-09 06:13] VITALS: BP 103/74
[2021-03-09] MEDS: MULTIVITAMINS/MINERALS THERAP 1 TAB PO SCH (08:03)
[2021-03-09] MEDS: GABAPENTIN 100 MG CAP PO SCH ×3 (08:03→19:47)
[2021-03-09] MEDS: buPROPion **XL** TABLET 150MG (WELLBUTRIN XL) PO SCH (08:03)
[2021-03-09] MEDS: LIDOCAINE 5% (LIDODERM) PATCH TD SCH (08:03)
[2021-03-09] MEDS: OLANZapine 10 MG TAB PO SCH ×3 (08:03→19:46)
[2021-03-09] MEDS: FOLIC ACID 1 MG TAB PO SCH (08:03)
--- NOTE | 2021-03-09 12:15 | REP ---
INDICATION: right wrist pain. COMPARISON: None. TECHNIQUE: Four views of the right wrist are obtained. FINDINGS: There is no evidence of fracture. Joint spaces are preserved. Alignment is normal. Overall mineralization pattern is normal. IMPRESSION: Negative radiographs of the right wrist. No acute bony abnormality. <Electronically signed by Maxwell Rosas > 03/09/21 [id number]
[2021-03-09 16:27] VITALS: BP 139/80
--- NOTE | 2021-03-09 16:31 | IPNPDOC ---
Text Note Date of Service The patient was seen on 03/09/21. NOTE Subjective: Patient is a 40-year-old male who I was called down to reevaluate in the inpatient mental health unit with a chief complaint of right wrist pain. Patient states that he woke up and his right wrist was stiff and it was hurting. Patient points to the back of his wrist as the area where the pain was the worst. Patient describes having difficulty moving the wrist [id number]. Patient feels like the wrist is swollen. Patient does not remember any injury to the wrist. Patient denies any fevers or chills at this time. Physical exam: Vitals: See below General: Alert and oriented male patient who was walking around the unit when I walked down. Patient was able to come to the examination room without any difficulty. Patient not appear to be in any acute distress. Musculoskeletal: There was no swelling, erythema, heat, to the joint. Patient reported tenderness to palpation of the dorsum of the right wrist. No tenderness to palpation of the volar surface of the wrist. Patient was able to actively and passively move wrist in all directions including flexion, extension, radial and ulnar deviation although this was somewhat limited by pain. Patient had full range of motion of the patient's thumb. Labs: See below Imaging: X-rays of the right wrist performed on 03/2021 was reported to show negative radiographs of the right wrist. No acute bony abnormality. Assessment/plan: 40-year-old male who I was called on to evaluate for right wrist pain 1. Right wrist pain. This is most likely a strain of the right wrist. X-rays were negative. I instructed the patient to take anti-inflammatories such as naproxen which has been ordered. I also placed a nursing order for the patient to ice the wrist 20 minutes on at least 20 minutes off as needed. Patient can also take Tylenol. If the wrist pain continues to worsen or if there is acute swelling of the wrist, please reconsult hospitalist. VS,Stivenbone, I+O VS, Fishbone, I+O Vital Signs Date Time Temp Pulse Resp B/P (MAP) Pulse Ox O2 Delivery O2 Flow Rate FiO2 03/09/21 16:27 98.9 89 18 139/80 (99) 98 Room Air AZUCENA NOVA DO Mar 09, 2021 16:31
[2021-03-09] MEDS: OMEPRAZOLE 20 MG CAP PO SCH (19:46)
[2021-03-09] MEDS: traZODone 50 MG TAB PO PRN (19:46)
[2021-03-09] MEDS: PRAZOSIN 1 MG CAP PO SCH (19:46)
[2021-03-09] MEDS: NAPROXEN 250 MG TAB PO PRN (19:47)
[2021-03-10 05:58] VITALS: BP 125/62
[2021-03-10] MEDS: MULTIVITAMINS/MINERALS THERAP 1 TAB PO SCH (08:04)
[2021-03-10] MEDS: FOLIC ACID 1 MG TAB PO SCH (08:04)
[2021-03-10] MEDS: OLANZapine 10 MG TAB PO SCH ×3 (08:04→20:16)
[2021-03-10] MEDS: buPROPion **XL** TABLET 150MG (WELLBUTRIN XL) PO SCH (08:04)
[2021-03-10] MEDS: NAPROXEN 250 MG TAB PO PRN ×2 (08:05→20:17)
[2021-03-10] MEDS: LIDOCAINE 5% (LIDODERM) PATCH TD SCH (08:05)
[2021-03-10] MEDS: GABAPENTIN 100 MG CAP PO SCH ×3 (08:05→20:20)
[2021-03-10] MEDS: ACETAMINOPHEN TAB 650MG DOSE (2X325MG) PO PRN (15:08)
[2021-03-10 16:31] VITALS: BP 137/74
[2021-03-10 20:20] VITALS: BP 130/79
[2021-03-10] MEDS: traZODone 50 MG TAB PO PRN (20:20)
[2021-03-10] MEDS: PRAZOSIN 1 MG CAP PO SCH (20:20)
[2021-03-10] MEDS: OMEPRAZOLE 20 MG CAP PO SCH (20:20)
[2021-03-11 07:06] VITALS: BP 138/76
[2021-03-11] MEDS: buPROPion **XL** TABLET 150MG (WELLBUTRIN XL) PO SCH (08:05)
[2021-03-11] MEDS: FOLIC ACID 1 MG TAB PO SCH (08:05)
[2021-03-11] MEDS: MULTIVITAMINS/MINERALS THERAP 1 TAB PO SCH (08:05)
[2021-03-11] MEDS: LIDOCAINE 5% (LIDODERM) PATCH TD SCH (08:05)
[2021-03-11] MEDS: GABAPENTIN 100 MG CAP PO SCH (08:05)
[2021-03-11] MEDS: OLANZapine 10 MG TAB PO SCH (08:05)
[2021-03-11] MEDS: TESTOSTERONE CYPIONATE 200 MG/ML SQ SCH (09:09)
[2021-03-11] MEDS ORDERED: BUPR150T12 PO (09:51)
[2021-03-11] MEDS ORDERED: OLAN1TAB20 PO (09:51)
--- NOTE | 2021-03-11 10:21 | MHDSPDOC ---
[facility] Discharge Summary Discharge Summary DATE OF ADMISSION: Mar 02, 2021 at 15:02 DATE OF DISCHARGE: March 11, 2020 Discharge diagnoses: 1. Unspecified psychotic disorder 2. Substance induced psychosis 3. Polysubstance use disorder 4. R/O schizoaffective disorder 5. R/O personality disorder Reason for admission: Patient is a 40 -year-old , male, who, as per Hospitalist note: "40-year-old transgender male, genotype female, with a history of GERD, ADHD, bipolar, anxiety, PSUD who presented to the ED reporting suicidal ideation seeking psychiatric evaluation and treatment and when the ED provider came in to evaluate him he was acting bizarre, reporting that he did not know why he was here, became agitated, and reported that he did crystal meth yesterday. He denied any chest pain, abdominal pain, SOB, fever, chills, was tangential, restless, fidgety and had a 1:1 sitter ordered for the bizzare behavior and reported suicidality. Shortly after evaluation the team was urgently called bythe sitter to the bedside as he had tied his cords around his neck and was trying to strangle himself and had to struggle to remove the tight wrapped cord. He was given midazolam with good effect. CT head revealed no acute pathology as did CXR. Labs were notable for CK 2351, Cr was at his baseline of 1.11, na 138, K 3.4 (was repleted with 40 PO K), WBC 9.2, hgb 15.8, platelets 231, TSH 1.24, AST 77, ALT 54. He is now being admitted to medicine of rhabdomyolysis i/s/o crystal meth use with associated agitation and suicidal ideation. " Vital signs: See below Consultants involved: See medical H&P by hospitalist Treatment and progress on the unit: Patient was admitted to the [facility] on a legal status and was afforded the following treatment modalities: 1. Individual therapy 2. Group therapy 3. Medication management 4. Milieu therapy 5. Safe environment Hospital course: Patient was admitted to the [facility] on a legal status. Was medically cleared prior to coming up to the [facility] from the medical floor. 2 times he attempted suicide by wrapping cords around his neck, medical floor and PCU, requiring restraints. Patient had no recollection of these events stating he was out of his mind in the context of drug use. Patient was restarted on his olanzapine 10 mg 3 times daily with reported good effect, per collateral obtained by treatment team there is a pending possibility of divorce between himself and his due to his drug use. I stop was reviewed, This report was requested by: Jayson Mejia | Reference #: [id number], has a history of prescribed Adderall and lorazepam. Benzodiazepines were not continued due to history of polysubstance abuse, patient was agreeable and was placed on a CIWA, during stay no increased shakiness or seizure-like activity or noticeable withdrawal symptoms. During course of stay he has been able to communicate with his our team communicated with her and separate pickup states that she plans to work on things with him and try and reconcile their relationship. Patient was also agreeable to starting Wellbutrin 150 mg XL daily for stimulant cravings, as he reports history of psychotic symptoms in the context of drug use. Patient found medications beneficial and tolerated them well. Did report some sedation, due to possible trazodone versus olanzapine versus weather changes, but overall feels he is doing a lot better today prior to discharge. Aims scoring was 0 today on interview. Denies mood, anxiety and intrusive thoughts which improved with treatment. Patient attended groups daily during stay. Patient symptoms improved with treatment. On the days prior to and on discharge patient denied depression, anxiety, insomnia, suicidal or homicidal ideations intent or plan, hallucinations, delusions. Patient was discharged home with follow-up. Patient felt safe for discharge. Was offered continued stay voluntary admission but refused. Safety plan was created. Discharge assessment: On today's interview patient is alert and oriented, dressed appropriately. Hygiene and grooming is well-kept. Smiles on approach and is pleasant and engaged on interview. Denies depression and anxiety. Denies suicidal homicidal ideation, intent or planning. Denies and is not observed with latisha or psychotic symptoms of delusions, hallucinations, bizarre thinking, obsessions, paranoia, ruminations, illogical thoughts, flight of ideas or having poor insight or judgment. Patient has normal mentation, declines further hospitalization of voluntary status and meets criteria for discharge today, patient encouraged to return the hospital if symptoms worsen or change and encouraged to call unit if they feel they need provider's questions to be answered or help with medications or care. Mental status: Patient is a 40-year old male, who is sitting in bed, with bridge nose ring, continues to have improved eye contact, average build, appears stated age Speech: Is normal rate and rhythm, spontaneous Language skills fair Thought processes including: Linear, logical Thought content: Denies suicidal intent or plan, denies psychotic symptoms Abstract reasoning, and computation: Intact description of associations: Denies Description of abnormal or psychotic thoughts: Denies Judgment: Fair Insight: Fair Orientation: X4. Recent and remote memory: Intact Attention span and concentration: Improved Language: Ethiopian. Fund of knowledge: Below average. Mood: " I am neutral because I am tired, but alot better". Affect: Euthymic, less constricted, mood congruent, appropriate Medications on discharge: -see medication reconciliation: CSSRS on discharge: Wish to be : No nonspecific active suicidal thoughts: No lifetime attempts: Multiple interrupted attempts: 0 aborted attempts: 0 preparatory acts or behavior: None Taking into consideration safety state, status, modifiable, non-modifiable risk factors patient is at chronically elevated risk on discharge for suicide according to [facility] suicide evaluation. PLAN/FOLLOWUP ARRANGEMENTS: Follow Up Care Education Label * Chemical Dependency Appt1 * Additional information [facility] in hours Thursday - Thursday 8-4 [address] [place] [address] [facility] in hours Thursday -Thursday [phone] [place] [address] Follow Up Care Education Label * Mental Health Appt 1 * Date Mar 13, 2021 * Time 11:30 * Address of Clinic or Practice [place] * Additional information [facility] with Dr Rodriguez The amount of time spent in the coordination of care for this patient was approximately 35 minutes. ETOH/Disorder Med Rx ETOH/DRUG DISORDER RX: Offrd @ d/c & pt refused Vital Signs/I&Os Vital Signs Date Time Temp Pulse Resp B/P (MAP) Pulse Ox O2 Delivery O2 Flow Rate FiO2 03/11/21 07:06 98.9 76 16 138/76 (96) 96 Room Air Medications Scheduled Bupropion Hcl (Bupropion Xl) 150 Mg Tab.er.24h, 150 MG PO DAILY for mood and stimulant cravings, #7 Gabapentin (Gabapentin) 100 Mg Capsule, 100 MG PO TID, (Reported) Olanzapine (Olanzapine) 10 Mg Tablet, 10 MG PO TID for psychosis for 1 Days, #21 Omeprazole (Omeprazole) 40 Mg Cap, 40 MG PO QHS, (Reported) Prazosin Hcl (Prazosin HCl) 2 Mg Cap, 2 MG PO QHS, (Reported) Testosterone Cypionate (Testosterone Cypionate) 200 Mg/Ml Inj, 100 MG IM QWEEK, (Reported) MONDAYS Trazodone HCl (Trazodone HCl) 150 Mg Tablet, 150 MG PO QHS, (Reported) Vitamin E (Vitamin E) 400 Unit Capsule, 400 UNIT PO DAILY, (Reported) Scheduled PRN Loratadine (Loratadine) 10 Mg Tablet, 10 MG PO DAILY PRN for ALLERGY SYMPTOMS, (Reported) Allergies Coded Allergies: SEASONAL ALLERGIES (Unverified Allergy, Unknown, 11/26/17) egg (Verified Adverse Reaction, Unknown, INTOLERANCE, 02/28/21) JAYSON MEJIA MD Mar 11, 2021 10:21
[2021-03-11] MEDS: ACETAMINOPHEN TAB 650MG DOSE (2X325MG) PO PRN (10:56)
== END 2021-03-11 11:13 | disposition home or self-care (01) | DRG 897 ==
LOC: M PSY 15:02 → UNDODISIN 15:45
PROVIDERS: ADMIT Psychiatry & Neurology Psychiatry; ATTEND Student in an Organized Health Care Education/Training Program
DX: F19.94 Other psychoactive substance use, unspecified with psychoactive substance-induced mood disorder (principal); R45.851 Suicidal ideations; M62.82 Rhabdomyolysis; I82.711 Chronic embolism and thrombosis of superficial veins of right upper extremity; K21.9 Gastro-esophageal reflux disease without esophagitis; F15.90 Other stimulant use, unspecified, uncomplicated; Z79.899 Other long term (current) drug therapy; Z91.012 Allergy to eggs; F17.200 Nicotine dependence, unspecified, uncomplicated

== ENCOUNTER 2021-06-11 13:46 | Observation (INO) | payer MEDICARE, OTHER, MEDICAID ==
[~2021-06-11] VITALS: Ht 172.7 cm; Wt 100.0 kg
[~2021-06-11 13:46] MED LIST changes: +BUPR150T12 PO
[2021-06-11] MEDS ORDERED: AMPH1TAB2 (13:59)
[2021-06-11] MEDS ORDERED: GABA-282 (13:59)
[2021-06-11] MEDS ORDERED: DEXTROAMP-AMPHETAMIN (13:59)
[2021-06-11] MEDS ORDERED: ZIPR80CA30 (13:59)
[2021-06-11] MEDS ORDERED: LORA2TAB14 (13:59)
[2021-06-11] MEDS ORDERED: OMEP40CA5 (13:59)
[2021-06-11] MEDS ORDERED: diphenhydrAMINE 50MG/ML VIAL (J1200) IV ONE (14:15)
[2021-06-11] MEDS ORDERED: dexameTHASONE 20MG/5ML VIAL (J1100 PER 1MG) IV ONE (14:15)
[2021-06-11] MEDS ORDERED: FAMOTIDINE INJ 20MG/2ML VIAL (S0028 PER 1) IVP ONE (14:15)
[2021-06-11 14:52] LABS: BASO % 0.5 % (0.0-1.0); EOS # 0.1 10^3/uL (0.0-0.5); EOS % 0.9 % (0.0-3.0); HEMATOCRIT 43.8 % (42.0-52.0); HEMOGLOBIN 15.1 g/dl (13.5-17.5); LYMPH % 11.2 % (24.0-44.0); MEAN CORPUSCULAR HEMOGLOBIN 33.5 pg (27.0-33.0); MEAN CORPUSCULAR HGB CONC 34.5 g/dl (32.0-36.5); MEAN CORPUSCULAR VOLUME 97.1 fl (80.0-96.0); MONO # 0.7 10^3/uL (0.0-0.8); MONO % 7.8 % (2.0-8.0); NEUTROPHILS # 6.8 10^3/uL (1.5-8.5); NEUTROPHILS % 79.2 % (36.0-66.0); PLATELET COUNT, AUTOMATED 209 10^3/uL (150-450); RED BLOOD COUNT 4.51 10^6/uL (4.30-6.10); WHITE BLOOD COUNT 8.6 10^3/uL (4.0-10.0)
[2021-06-11] MEDS ORDERED: ISOVUE-370 76% 100ML VIAL As Ordered ONE (15:04)
[2021-06-11 15:11] LABS: ERYTHROCYTE SEDIMENTATION RATE 6 mm/hr (0-15)
[2021-06-11 15:18] LABS: ALBUMIN 3.7 GM/DL (3.2-5.2); ALT/SGPT 50 U/L (12-78); BILIRUBIN,DIRECT 0.2 MG/DL (0.0-0.2); BILIRUBIN,TOTAL 0.7 MG/DL (0.2-1.0); BLOOD UREA NITROGEN 18 MG/DL (7-18); C REACTIVE PROTEIN QUANTITATIV 3.69 MG/DL (0.00-0.30); CALCIUM LEVEL 9.1 MG/DL (8.5-10.1); CARBON DIOXIDE LEVEL 26 MEQ/L (21-32); CHLORIDE LEVEL 107 MEQ/L (98-107); COMPLEMENT C4 31 MG/DL (10-40); CREATININE FOR GFR 0.88 MG/DL (0.70-1.30); GLOMERULAR FILTRATION RATE > 60.0 (>60); GLUCOSE, FASTING 116 MG/DL (70-100); POTASSIUM SERUM 3.7 MEQ/L (3.5-5.1); SODIUM LEVEL 139 MEQ/L (136-145); TOTAL PROTEIN 6.6 GM/DL (6.4-8.2)
[2021-06-11 15:30] LABS: RSV AMPLIFICATION NEGATIVE (NEGATIVE)
[2021-06-11] MEDS ORDERED: D5W/0.45% SODIUM CHLORIDE 1,000 ML IV SCH (16:15)
[2021-06-11] MEDS ORDERED: ALBUTEROL SULFATE 2.5 MG/0.5 ML INH NEB SOLN NEB PRN (16:15)
[2021-06-11] MEDS ORDERED: diphenhydrAMINE 50MG/ML VIAL (J1200) IV PRN (16:15)
[2021-06-11] MEDS ORDERED: PANTOPRAZOLE 40MG VIAL (C9113 PER 1) IV SCH (16:15)
[2021-06-11 16:45] VITALS: BP 123/76
[2021-06-11] MEDS ORDERED: DECA4TAB PO (17:38)
[2021-06-11] MEDS ORDERED: LEVO750T14 PO (17:38)
[2021-06-11] MEDS ORDERED: AUGM875T28 PO (17:38)
[2021-06-11] MEDS ORDERED: SING10TA32 PO (18:56)
[2021-06-11] MEDS ORDERED: dexameTHASONE 20MG/5ML VIAL (J1100 PER 1MG) IV SCH (22:00)
[2021-06-14 14:09] LABS: TRYPTASE 11.9 ug/L (2.2-13.2)
== END 2021-06-11 17:40 | disposition left against medical advice (07) ==
LOC: M ED 13:46 → EDBD 13:46 → M ED INP 16:13
PROVIDERS: ADMIT General Practice; ATTEND General Practice
DX: J35.1 Hypertrophy of tonsils (principal); T78.3XXA Angioneurotic edema, initial encounter; Z53.20 Procedure and treatment not carried out because of patient's decision for unspecified reasons; J02.9 Acute pharyngitis, unspecified; J18.9 Pneumonia, unspecified organism; K21.9 Gastro-esophageal reflux disease without esophagitis; F31.9 Bipolar disorder, unspecified; F64.9 Gender identity disorder, unspecified; F43.10 Post-traumatic stress disorder, unspecified; F19.20 Other psychoactive substance dependence, uncomplicated; Z79.899 Other long term (current) drug therapy; Z91.012 Allergy to eggs
CPT/HCPCS: 70491; 80047; 80048; 80076; 83519; 84145; 85025; 85280; 85652; 86140; 86160; 86161; 87631; 93041; 94760; 96374; 96375; 99285; G0378; J1100; Q9967

== ENCOUNTER → 2022-06-16 | Outpatient (CLI) | payer MEDICARE, MEDICAID ==
[~2022-06-16] MED LIST changes: +AMPH1TAB2; +AUGM875T28 PO; +DECA4TAB PO; +DEXTROAMP-AMPHETAMIN; +GABA-282; +LEVO750T14 PO; +LORA2TAB14; +OMEP40CA5; +SING10TA32 PO; +ZIPR80CA30
[2022-06-16 20:15] LABS: BASO # 0.1 10^3/uL (0.0-0.2); BASO % 0.7 % (0.0-1.0); EOS # 0.1 10^3/uL (0.0-0.5); EOS % 1.2 % (0.0-3.0); HEMATOCRIT 54.7 % (42.0-52.0); HEMOGLOBIN 19.2 g/dl (13.5-17.5); LYMPH # 2.8 10^3/uL (1.5-5.0); MEAN CORPUSCULAR HEMOGLOBIN 33.7 pg (27.0-33.0); MEAN CORPUSCULAR HGB CONC 35.1 g/dl (32.0-36.5); MONO # 0.9 10^3/uL (0.0-0.8); MONO % 8.9 % (2.0-8.0); NEUTROPHILS # 6.1 10^3/uL (1.5-8.5); NEUTROPHILS % 60.9 % (36.0-66.0); PLATELET COUNT, AUTOMATED 271 10^3/uL (150-450)
[2022-06-16 20:17] LABS: ALBUMIN 4.8 G/DL (3.2-5.2); ALKALINE PHOSPHATASE 88 U/L (46-116); ALT/SGPT 92 U/L (7.0-40); AST/SGOT 174 U/L (<34); BILIRUBIN,TOTAL 1.4 MG/DL (0.3-1.2); BLOOD UREA NITROGEN 10 MG/DL (9-23); CALCIUM LEVEL 9.7 MG/DL (8.5-10.1); CARBON DIOXIDE LEVEL 28 MMOL/L (20-31); CHLORIDE LEVEL 96 MMOL/L (98-107); CHOLESTEROL LEVEL 264 MG/DL (<200); CHOLESTEROL RISK RATIO 5.75 (<5); GLOMERULAR FILTRATION RATE > 60.0 (>60); GLUCOSE, FASTING 80 MG/DL (60-100); HDL CHOLESTEROL 45.9 MG/DL (>40); NON-HDL-C 218 MG/DL; SODIUM LEVEL 139 MMOL/L (136-145); TOTAL PROTEIN 7.8 G/DL (5.7-8.2); TRIGLYCERIDES LEVEL 546 MG/DL (<150)
[2022-06-16 20:21] LABS: LUTEINIZING HORMONE < 0.1 mIU/ML (1.5-9.3); TESTOSTERONE 501 NG/DL (241-827)
== END ==
LOC: M WUC 15:02
PROVIDERS: ATTEND Internal Medicine Endocrinology, Diabetes & Metabolism
DX: E29.1 Testicular hypofunction (principal); Z79.899 Other long term (current) drug therapy

== ENCOUNTER 2022-06-23 16:40 | Emergency (ER) | payer MEDICARE, OTHER ==
[~2022-06-23] VITALS: Ht 172.7 cm; Wt 85.0 kg
[2022-06-23 18:07] LABS: AMPHETAMINES LEVEL URINE NEGATIVE (NEGATIVE); BARBITURATES URINE NEGATIVE (NEGATIVE); BENZODIAZEPINES URINE NEGATIVE (NEGATIVE); COCAINE METABOLITE URINE NEGATIVE (NEGATIVE); METHADONE URINE NEGATIVE (NEGATIVE); OPIATES URINE NEGATIVE (NEGATIVE); PHENCYCLIDINE URINE NEGATIVE (NEGATIVE)
[2022-06-23 18:08] LABS: CANNABINOIDS URINE POSITIVE (NEGATIVE)
[2022-06-23 20:46] VITALS: BP 147/89
== END 2022-06-24 00:13 | disposition left against medical advice (07) ==
LOC: EDBD 16:40 → M ED 16:40
DX: Z53.21 Procedure and treatment not carried out due to patient leaving prior to being seen by health care provider (principal)

== ENCOUNTER → 2022-07-15 | Outpatient (CLI) | payer MEDICARE, OTHER ==
[2022-07-15 12:05] LABS: BASO # 0.1 10^3/uL (0.0-0.2); BASO % 0.7 % (0.0-1.0); EOS # 0.1 10^3/uL (0.0-0.5); EOS % 1.2 % (0.0-3.0); HEMATOCRIT 45.5 % (42.0-52.0); LYMPH # 1.9 10^3/uL (1.5-5.0); LYMPH % 23.9 % (24.0-44.0); MEAN CORPUSCULAR HGB CONC 35.2 g/dl (32.0-36.5); MEAN CORPUSCULAR VOLUME 96.6 fl (80.0-96.0); MONO # 0.7 10^3/uL (0.0-0.8); MONO % 8.8 % (2.0-8.0); NEUTROPHILS # 5.2 10^3/uL (1.5-8.5); NEUTROPHILS % 64.9 % (36.0-66.0); PLATELET COUNT, AUTOMATED 246 10^3/uL (150-450); RED BLOOD COUNT 4.71 10^6/uL (4.30-6.10); WHITE BLOOD COUNT 8.1 10^3/uL (4.0-10.0)
[2022-07-15 12:25] LABS: ALBUMIN 3.7 G/DL (3.2-5.2); BILIRUBIN,DIRECT 0.2 MG/DL (<0.4); BILIRUBIN,TOTAL 0.7 MG/DL (0.3-1.2); TOTAL PROTEIN 6.5 G/DL (5.7-8.2)
== END ==
LOC: M WUC 09:33
PROVIDERS: ATTEND Internal Medicine Endocrinology, Diabetes & Metabolism
DX: R74.8 Abnormal levels of other serum enzymes (principal); D58.2 Other hemoglobinopathies

== ENCOUNTER 2022-07-20 21:42 | Emergency (ER) | payer MEDICARE, OTHER ==
[~2022-07-20] VITALS: Ht 172.7 cm; Wt 86.4 kg
[2022-07-20] MEDS ORDERED: TRAZ1TAB14 PO (21:53)
[2022-07-20] MEDS ORDERED: LEXA5TAB13 PO (21:53)
[2022-07-21 01:03] LABS: GC DNA AMPLIFICATION NEGATIVE (NEGATIVE)
[2022-07-21 02:28] VITALS: BP 148/87
[2022-07-21] MEDS ORDERED: SUBO4MIS SL (03:09)
[2022-07-21 03:22] LABS: BASO % 0.3 % (0.0-1.0); EOS % 0.2 % (0.0-3.0); HEMATOCRIT 43.3 % (42.0-52.0); HEMOGLOBIN 15.7 g/dl (13.5-17.5); LYMPH # 1.7 10^3/uL (1.5-5.0); LYMPH % 12.1 % (24.0-44.0); MEAN CORPUSCULAR HEMOGLOBIN 34.3 pg (27.0-33.0); MEAN CORPUSCULAR HGB CONC 36.3 g/dl (32.0-36.5); MEAN CORPUSCULAR VOLUME 94.5 fl (80.0-96.0); MONO # 1.5 10^3/uL (0.0-0.8); MONO % 10.7 % (2.0-8.0); NEUTROPHILS # 10.7 10^3/uL (1.5-8.5); NEUTROPHILS % 76.4 % (36.0-66.0); PLATELET COUNT, AUTOMATED 210 10^3/uL (150-450); RED BLOOD COUNT 4.58 10^6/uL (4.30-6.10)
[2022-07-21 04:47] LABS: BLOOD UREA NITROGEN 14 MG/DL (9-23); CALCIUM LEVEL 8.4 MG/DL (8.5-10.1); CARBON DIOXIDE LEVEL 20 MMOL/L (20-31); CHLORIDE LEVEL 94 MMOL/L (98-107); GLOMERULAR FILTRATION RATE > 60.0 (>60); GLUCOSE, FASTING 72 MG/DL (60-100); POTASSIUM SERUM 2.6 MMOL/L (3.5-5.1); SODIUM LEVEL 133 MMOL/L (136-145)
[2022-07-21] MEDS ORDERED: POTASSIUM CHLORIDE 10MEQ SR TABLET PO ONE (06:00)
[2022-07-21 06:11] LABS: MAGNESIUM LEVEL 1.8 MG/DL (1.8-2.4)
[2022-07-21] MEDS ORDERED: KCL 10MEQ/100ML SWI (KRUN) 10 MEQ in IV 1 EA IV ONE (08:15)
[2022-07-21] MEDS ORDERED: clonazePAM 0.5 MG TAB PO ONE (08:15)
[2022-07-21 08:47] LABS: BASO % 0.2 % (0.0-1.0); EOS % 0.3 % (0.0-3.0); HEMATOCRIT 41.8 % (42.0-52.0); HEMOGLOBIN 15.1 g/dl (13.5-17.5); LYMPH # 1.4 10^3/uL (1.5-5.0); LYMPH % 9.9 % (24.0-44.0); MEAN CORPUSCULAR HEMOGLOBIN 34.2 pg (27.0-33.0); MEAN CORPUSCULAR HGB CONC 36.1 g/dl (32.0-36.5); MEAN CORPUSCULAR VOLUME 94.8 fl (80.0-96.0); MONO # 1.4 10^3/uL (0.0-0.8); NEUTROPHILS # 10.8 10^3/uL (1.5-8.5); NEUTROPHILS % 79.1 % (36.0-66.0); PLATELET COUNT, AUTOMATED 203 10^3/uL (150-450); RED BLOOD COUNT 4.41 10^6/uL (4.30-6.10); WHITE BLOOD COUNT 13.6 10^3/uL (4.0-10.0)
[2022-07-21] MEDS: KCL 10MEQ/100ML SWI (KRUN) 10 MEQ in IV 1 EA IV SCH ×2 (08:54→09:30)
[2022-07-21 09:12] LABS: BLOOD UREA NITROGEN 13 MG/DL (9-23); CALCIUM LEVEL 8.3 MG/DL (8.5-10.1); CARBON DIOXIDE LEVEL 20 MMOL/L (20-31); CHLORIDE LEVEL 95 MMOL/L (98-107); CREATININE FOR GFR 0.75 MG/DL (0.70-1.30); GLOMERULAR FILTRATION RATE > 60.0 (>60); GLUCOSE, FASTING 67 MG/DL (60-100); POTASSIUM SERUM 2.8 MMOL/L (3.5-5.1); SODIUM LEVEL 132 MMOL/L (136-145)
[2022-07-21] MEDS ORDERED: KLON0.5T PO (10:16)
[2022-07-21] MEDS ORDERED: MACR100C43 PO (10:16)
[2022-07-21] MEDS ORDERED: POTA1TAB14 PO (10:16)
[2022-07-25] MEDS ORDERED: LEVO1TAB39 PO (14:22)
== END 2022-07-21 11:02 | disposition left against medical advice (07) ==
LOC: M ED 21:42
DX: N39.0 Urinary tract infection, site not specified (principal); G24.01 Drug induced subacute dyskinesia; E87.6 Hypokalemia; F64.0 Transsexualism; F90.9 Attention-deficit hyperactivity disorder, unspecified type; F31.9 Bipolar disorder, unspecified; F43.10 Post-traumatic stress disorder, unspecified; F17.200 Nicotine dependence, unspecified, uncomplicated; F10.10 Alcohol abuse, uncomplicated; Z91.012 Allergy to eggs; Z79.891 Long term (current) use of opiate analgesic; Z79.811 Long term (current) use of aromatase inhibitors; Z79.899 Other long term (current) drug therapy

== ENCOUNTER → 2022-07-25 | Outpatient (CLI) | payer MEDICARE, OTHER ==
[~2022-07-25] MED LIST changes: +KLON0.5T PO; +LEVO1TAB39 PO; +LEXA5TAB13 PO; +MACR100C43 PO; +MONT-5 PO; +POTA1TAB14 PO; -SING10TA32 PO; +SUBO4MIS SL
[2022-07-25 12:17] LABS: RHEUMATOID FACTOR QUANT 6.3 IU/ML (<14); THYROID STIMULATING HORMONE 1.146 uIU/ML (0.55-4.78); TOTAL 25(OH) VITAMIN D 23.1 NG/ML (20.0-100.0)
[2022-07-25 12:19] LABS: FOLATE 13.99 NG/ML (>5.4)
[2022-08-01 14:09] LABS: ANTINUCLEAR ANTIBODIES DIRECT Negative (Negative); VITAMIN B1 LEVEL WHOLE BLOOD 150.5 nmol/L (66.5-200.0); VITAMIN E(ALPHA TOCOPHEROL) 11.8 mg/L (7.0-25.1); VITAMIN E(GAMMA TOCOPHEROL) 0.6 mg/L (0.5-5.5)
== END ==
LOC: M WUC 09:13
PROVIDERS: ATTEND Psychiatry & Neurology Neurology
DX: G62.9 Polyneuropathy, unspecified (principal); E11.9 Type 2 diabetes mellitus without complications; R53.1 Weakness; R20.2 Paresthesia of skin; D51.9 Vitamin B12 deficiency anemia, unspecified; E51.9 Thiamine deficiency, unspecified; E53.1 Pyridoxine deficiency

== ENCOUNTER → 2022-07-28 | Outpatient (CLI) | payer MEDICARE, OTHER ==
[~2022-07-28] MED LIST changes: -MONT-5 PO; +SING10TA32 PO
== END ==
LOC: M WUC 11:06
PROVIDERS: ATTEND Physician Assistant
DX: K59.00 Constipation, unspecified (principal)

== ENCOUNTER → 2022-08-12 | Outpatient (CLI) | payer MEDICARE, OTHER ==
[~2022-08-12] MED LIST changes: +MONT-5 PO; -SING10TA32 PO
[2022-08-12 18:07] LABS: APPEARANCE, URINE CLEAR (CLEAR); BACTERIA, URINE AUTO 1+ (NEGATIVE); BILIRUBIN, URINE AUTO NEGATIVE (NEGATIVE); BLOOD, URINE BLOOD NEGATIVE (NEGATIVE); COLOR, URINE YELLOW (YELLOW); GLUCOSE, URINE (UA) AUTO NEGATIVE (NEGATIVE); KETONE, URINE AUTO NEGATIVE (NEGATIVE); LEUKOCYTE ESTERASE, URINE AUTO 3+ (NEGATIVE); NITRITE, URINE AUTO NEGATIVE (NEGATIVE); PROTEIN, URINE AUTO NEGATIVE (NEGATIVE); RBC, URINE AUTO 2 /HPF (0-3); SPECIFIC GRAVITY URINE AUTO 1.011 (1.002-1.035); SQUAMOUS EPITHELIAL CELL UR AU 2 /HPF (0-6); UROBILINOGEN, URINE AUTO 0.2 mg/dL (0.0-2.0); WBC, URINE AUTO 13 /HPF (0-3)
[2022-08-12 18:19] LABS: HEMATOCRIT 45.3 % (42.0-52.0); HEMOGLOBIN 15.3 g/dl (13.5-17.5); MEAN CORPUSCULAR HEMOGLOBIN 34.2 pg (27.0-33.0); MEAN CORPUSCULAR HGB CONC 33.8 g/dl (32.0-36.5); MEAN CORPUSCULAR VOLUME 101.1 fl (80.0-96.0); PLATELET COUNT, AUTOMATED 287 10^3/uL (150-450); RED BLOOD COUNT 4.48 10^6/uL (4.30-6.10)
[2022-08-12 18:25] LABS: ALBUMIN 4.1 G/DL (3.2-5.2); ALKALINE PHOSPHATASE 67 U/L (46-116); ALT/SGPT 27 U/L (7.0-40); AST/SGOT 18 U/L (<34); BILIRUBIN,TOTAL 0.7 MG/DL (0.3-1.2); BLOOD UREA NITROGEN 20 MG/DL (9-23); CALCIUM LEVEL 9.6 MG/DL (8.5-10.1); CARBON DIOXIDE LEVEL 28 MMOL/L (20-31); CHLORIDE LEVEL 105 MMOL/L (98-107); CHOLESTEROL LEVEL 175 MG/DL (<200); CHOLESTEROL RISK RATIO 5.11 (<5); CREATININE FOR GFR 1.07 MG/DL (0.70-1.30); GLOMERULAR FILTRATION RATE > 60.0 (>60); GLUCOSE, FASTING 83 MG/DL (60-100); HDL CHOLESTEROL 34.2 MG/DL (>40); LDL CHOLESTEROL 100.4 MG/DL (<100); NON-HDL-C 141 MG/DL; POTASSIUM SERUM 4.6 MMOL/L (3.5-5.1); SODIUM LEVEL 140 MMOL/L (136-145); TOTAL PROTEIN 6.6 G/DL (5.7-8.2); TRIGLYCERIDES LEVEL 202 MG/DL (<150)
[2022-08-12 18:28] LABS: TOTAL 25(OH) VITAMIN D 33.1 NG/ML (20.0-100.0)
[2022-08-12 18:40] LABS: VITAMIN B12 LEVEL 825 PG/ML (211-911)
[2022-08-12 18:41] LABS: THYROID STIMULATING HORMONE 1.063 uIU/ML (0.55-4.78)
[2022-08-12 18:43] LABS: FOLATE 12.28 NG/ML (>5.4)
== END ==
LOC: M WUC 14:01
DX: E29.1 Testicular hypofunction (principal); Z79.899 Other long term (current) drug therapy

== ENCOUNTER → 2022-08-14 | Outpatient (CLI) | payer MEDICARE, OTHER ==
[2022-08-14 13:38] LABS: BASO # 0.1 10^3/uL (0.0-0.2); EOS # 0.2 10^3/uL (0.0-0.5); EOS % 3.6 % (0.0-3.0); HEMOGLOBIN 15.7 g/dl (13.5-17.5); LYMPH # 1.6 10^3/uL (1.5-5.0); LYMPH % 25.8 % (24.0-44.0); MEAN CORPUSCULAR HEMOGLOBIN 34.4 pg (27.0-33.0); MEAN CORPUSCULAR HGB CONC 34.1 g/dl (32.0-36.5); MEAN CORPUSCULAR VOLUME 100.7 fl (80.0-96.0); MONO # 0.7 10^3/uL (0.0-0.8); NEUTROPHILS # 3.6 10^3/uL (1.5-8.5); NEUTROPHILS % 58.4 % (36.0-66.0); PLATELET COUNT, AUTOMATED 270 10^3/uL (150-450); RED BLOOD COUNT 4.57 10^6/uL (4.30-6.10); WHITE BLOOD COUNT 6.2 10^3/uL (4.0-10.0)
[2022-08-14 14:05] LABS: ALBUMIN 4.1 G/DL (3.2-5.2); ALKALINE PHOSPHATASE 68 U/L (46-116); ALT/SGPT 24 U/L (7.0-40); AST/SGOT 20 U/L (<34); BILIRUBIN,TOTAL 1.3 MG/DL (0.3-1.2); BLOOD UREA NITROGEN 19 MG/DL (9-23); CALCIUM LEVEL 9.7 MG/DL (8.5-10.1); CARBON DIOXIDE LEVEL 28 MMOL/L (20-31); CHLORIDE LEVEL 103 MMOL/L (98-107); CHOLESTEROL LEVEL 167 MG/DL (<200); CHOLESTEROL RISK RATIO 5.06 (<5); CREATININE FOR GFR 1.02 MG/DL (0.70-1.30); GLOMERULAR FILTRATION RATE > 60.0 (>60); GLUCOSE, FASTING 83 MG/DL (60-100); LDL CHOLESTEROL 108.8 MG/DL (<100); LUTEINIZING HORMONE < 0.1 mIU/ML (1.5-9.3); POTASSIUM SERUM 4.5 MMOL/L (3.5-5.1); SODIUM LEVEL 138 MMOL/L (136-145); TESTOSTERONE 962 NG/DL (241-827); TOTAL PROTEIN 6.5 G/DL (5.7-8.2); TRIGLYCERIDES LEVEL 126 MG/DL (<150)
== END ==
LOC: M WUC 09:56
PROVIDERS: ATTEND Internal Medicine Endocrinology, Diabetes & Metabolism
DX: E29.1 Testicular hypofunction (principal)

== ENCOUNTER → 2022-08-19 | Outpatient (CLI) | payer MEDICARE, OTHER | LOC: M WUC 13:17 | DX: M25.531 Pain in right wrist (principal) ==

== ENCOUNTER → 2022-09-13 | Outpatient (CLI) | payer MEDICARE, OTHER ==
[2022-09-13 15:10] LABS: HEMATOCRIT 44.3 % (42.0-52.0); HEMOGLOBIN 15.8 g/dl (13.5-17.5); MEAN CORPUSCULAR HEMOGLOBIN 35.4 pg (27.0-33.0); MEAN CORPUSCULAR HGB CONC 35.7 g/dl (32.0-36.5); MEAN CORPUSCULAR VOLUME 99.3 fl (80.0-96.0); PLATELET COUNT, AUTOMATED 256 10^3/uL (150-450); RED BLOOD COUNT 4.46 10^6/uL (4.30-6.10); WHITE BLOOD COUNT 8.8 10^3/uL (4.0-10.0)
[2022-09-13 15:15] LABS: APPEARANCE, URINE HAZY (CLEAR); BACTERIA, URINE AUTO NEGATIVE (NEGATIVE); BILIRUBIN, URINE AUTO NEGATIVE (NEGATIVE); BLOOD, URINE BLOOD NEGATIVE (NEGATIVE); COLOR, URINE YELLOW (YELLOW); GLUCOSE, URINE (UA) AUTO NEGATIVE (NEGATIVE); KETONE, URINE AUTO NEGATIVE (NEGATIVE); LEUKOCYTE ESTERASE, URINE AUTO TRACE (NEGATIVE); MUCUS, URINE SMALL (NEGATIVE); NITRITE, URINE AUTO NEGATIVE (NEGATIVE); PROTEIN, URINE AUTO NEGATIVE (NEGATIVE); RBC, URINE AUTO 2 /HPF (0-3); SPECIFIC GRAVITY URINE AUTO 1.017 (1.002-1.035); SQUAMOUS EPITHELIAL CELL UR AU 4 /HPF (0-6); UROBILINOGEN, URINE AUTO 0.2 mg/dL (0.0-2.0); WBC, URINE AUTO 2 /HPF (0-3)
[2022-09-13 15:38] LABS: ALBUMIN 3.9 G/DL (3.2-5.2); ALKALINE PHOSPHATASE 79 U/L (46-116); ALT/SGPT 37 U/L (7.0-40); AST/SGOT 21 U/L (<34); BLOOD UREA NITROGEN 13 MG/DL (9-23); CARBON DIOXIDE LEVEL 29 MMOL/L (20-31); CHLORIDE LEVEL 105 MMOL/L (98-107); CHOLESTEROL LEVEL 187 MG/DL (<200); CREATININE FOR GFR 0.92 MG/DL (0.70-1.30); GLOMERULAR FILTRATION RATE > 60.0 (>60); GLUCOSE, FASTING 99 MG/DL (60-100); HDL CHOLESTEROL 44.5 MG/DL (>40); LDL CHOLESTEROL 109.3 MG/DL (<100); NON-HDL-C 142.5 MG/DL; POTASSIUM SERUM 3.9 MMOL/L (3.5-5.1); SODIUM LEVEL 139 MMOL/L (136-145); TOTAL PROTEIN 6.5 G/DL (5.7-8.2); TRIGLYCERIDES LEVEL 166 MG/DL (<150)
[2022-09-13 15:39] LABS: THYROID STIMULATING HORMONE 1.365 uIU/ML (0.55-4.78); TOTAL 25(OH) VITAMIN D 31.4 NG/ML (20.0-100.0)
[2022-09-13 15:40] LABS: FOLATE 15.92 NG/ML (>5.4); VITAMIN B12 LEVEL 1834 PG/ML (211-911)
[2022-09-13 15:54] LABS: HEMOGLOBIN A1c 4.4 % (4.0-6.0)
== END ==
LOC: M LAB 14:44
DX: G47.00 Insomnia, unspecified (principal); Z79.899 Other long term (current) drug therapy

== ENCOUNTER → 2022-09-17 | Outpatient (CLI) | payer MEDICARE, OTHER ==
[2022-09-18 21:08] LABS: TESTOSTERONE FREE (DIRECT) 20.3 pg/mL (6.8-21.5)
== END ==
LOC: M WUC 10:35
DX: G47.00 Insomnia, unspecified (principal)

== ENCOUNTER → 2022-09-27 | Outpatient (CLI) | payer MEDICARE, OTHER ==
[2022-09-30 11:08] LABS: TESTOSTERONE FREE (DIRECT) 13.7 pg/mL (6.8-21.5)
== END ==
LOC: M LAB 13:03
PROVIDERS: ATTEND Internal Medicine
DX: G47.00 Insomnia, unspecified (principal)

== ENCOUNTER → 2022-10-01 | Outpatient (CLI) | payer MEDICARE, OTHER ==
[2022-10-01 18:03] LABS: HEMATOCRIT 45.1 % (42.0-52.0); HEMOGLOBIN 16.2 g/dl (13.5-17.5); MEAN CORPUSCULAR HGB CONC 35.9 g/dl (32.0-36.5); PLATELET COUNT, AUTOMATED 222 10^3/uL (150-450); RED BLOOD COUNT 4.38 10^6/uL (4.30-6.10); WHITE BLOOD COUNT 7.7 10^3/uL (4.0-10.0)
[2022-10-01 18:06] LABS: APPEARANCE, URINE HAZY (CLEAR); BACTERIA, URINE AUTO NEGATIVE (NEGATIVE); BILIRUBIN, URINE AUTO NEGATIVE (NEGATIVE); BLOOD, URINE BLOOD NEGATIVE (NEGATIVE); CALCIUM OXALATE CRYSTALS SMALL; COLOR, URINE YELLOW (YELLOW); GLUCOSE, URINE (UA) AUTO NEGATIVE (NEGATIVE); KETONE, URINE AUTO TRACE mg/dL (NEGATIVE); LEUKOCYTE ESTERASE, URINE AUTO TRACE (NEGATIVE); MUCUS, URINE SMALL (NEGATIVE); NITRITE, URINE AUTO NEGATIVE (NEGATIVE); PROTEIN, URINE AUTO NEGATIVE (NEGATIVE); RBC, URINE AUTO 1 /HPF (0-3); SQUAMOUS EPITHELIAL CELL UR AU 1 /HPF (0-6); WBC, URINE AUTO 0 /HPF (0-3)
[2022-10-01 18:21] LABS: ALBUMIN 3.7 G/DL (3.2-5.2); ALKALINE PHOSPHATASE 67 U/L (46-116); ALT/SGPT 28 U/L (7.0-40); AST/SGOT 27 U/L (<34); BLOOD UREA NITROGEN 15 MG/DL (9-23); CALCIUM LEVEL 8.8 MG/DL (8.5-10.1); CARBON DIOXIDE LEVEL 27 MMOL/L (20-31); CHLORIDE LEVEL 106 MMOL/L (98-107); CHOLESTEROL LEVEL 210 MG/DL (<200); CHOLESTEROL RISK RATIO 3.45 (<5); CREATININE FOR GFR 0.85 MG/DL (0.70-1.30); GLOMERULAR FILTRATION RATE > 60.0 (>60); GLUCOSE, FASTING 98 MG/DL (60-100); HDL CHOLESTEROL 60.8 MG/DL (>40); LDL CHOLESTEROL 116.4 MG/DL (<100); NON-HDL-C 149.2 MG/DL; POTASSIUM SERUM 4.1 MMOL/L (3.5-5.1); SODIUM LEVEL 139 MMOL/L (136-145); TOTAL PROTEIN 6.3 G/DL (5.7-8.2); TRIGLYCERIDES LEVEL 164 MG/DL (<150)
[2022-10-01 18:24] LABS: THYROID STIMULATING HORMONE 1.561 uIU/ML (0.55-4.78)
[2022-10-01 18:25] LABS: FOLATE > 24.0 NG/ML (>5.4); TOTAL 25(OH) VITAMIN D 46.1 NG/ML (20.0-100.0); VITAMIN B12 LEVEL 582 PG/ML (211-911)
[2022-10-01 18:31] LABS: HEMOGLOBIN A1c 4.2 % (4.0-6.0)
[2022-10-03 17:09] LABS: TESTOSTERONE FREE (DIRECT) 23.2 pg/mL (6.8-21.5)
== END ==
LOC: M LAB 17:17
PROVIDERS: ATTEND Internal Medicine
DX: G47.00 Insomnia, unspecified (principal)

== ENCOUNTER → 2022-10-04 | Outpatient (CLI) | payer MEDICARE, OTHER ==
[~2022-10-04] MED LIST changes: +LORA1TAB23; -LORA1TAB4; +POTA-298 PO; -POTA1TAB14 PO
[2022-10-04 09:46] LABS: HEMATOCRIT 45.6 % (42.0-52.0); HEMOGLOBIN 16.4 g/dl (13.5-17.5); MEAN CORPUSCULAR HEMOGLOBIN 36.8 pg (27.0-33.0); MEAN CORPUSCULAR VOLUME 102.2 fl (80.0-96.0); PLATELET COUNT, AUTOMATED 231 10^3/uL (150-450); RED BLOOD COUNT 4.46 10^6/uL (4.30-6.10); WHITE BLOOD COUNT 5.5 10^3/uL (4.0-10.0)
[2022-10-04 09:52] LABS: APPEARANCE, URINE HAZY (CLEAR); BACTERIA, URINE AUTO NEGATIVE (NEGATIVE); BILIRUBIN, URINE AUTO NEGATIVE (NEGATIVE); BLOOD, URINE BLOOD NEGATIVE (NEGATIVE); COLOR, URINE YELLOW (YELLOW); GLUCOSE, URINE (UA) AUTO NEGATIVE (NEGATIVE); KETONE, URINE AUTO TRACE mg/dL (NEGATIVE); LEUKOCYTE ESTERASE, URINE AUTO NEGATIVE (NEGATIVE); MUCUS, URINE SMALL (NEGATIVE); NITRITE, URINE AUTO NEGATIVE (NEGATIVE); PROTEIN, URINE AUTO NEGATIVE (NEGATIVE); RBC, URINE AUTO 1 /HPF (0-3); SPECIFIC GRAVITY URINE AUTO 1.017 (1.002-1.035); SQUAMOUS EPITHELIAL CELL UR AU 0 /HPF (0-6); UROBILINOGEN, URINE AUTO 0.2 mg/dL (0.0-2.0); WBC, URINE AUTO 1 /HPF (0-3)
[2022-10-04 10:20] LABS: FOLATE > 24.0 NG/ML (>5.4); THYROID STIMULATING HORMONE 1.745 uIU/ML (0.55-4.78)
[2022-10-04 10:21] LABS: VITAMIN B12 LEVEL 1558 PG/ML (211-911)
[2022-10-04 10:22] LABS: ALBUMIN 3.9 G/DL (3.2-5.2); ALKALINE PHOSPHATASE 71 U/L (46-116); ALT/SGPT 37 U/L (7.0-40); AST/SGOT 47 U/L (<34); BILIRUBIN,TOTAL 0.4 MG/DL (0.3-1.2); BLOOD UREA NITROGEN 12 MG/DL (9-23); CARBON DIOXIDE LEVEL 27 MMOL/L (20-31); CHLORIDE LEVEL 105 MMOL/L (98-107); CHOLESTEROL LEVEL 209 MG/DL (<200); CHOLESTEROL RISK RATIO 4.23 (<5); CREATININE FOR GFR 0.84 MG/DL (0.70-1.30); GLOMERULAR FILTRATION RATE > 60.0 (>60); GLUCOSE, FASTING 82 MG/DL (60-100); HDL CHOLESTEROL 49.3 MG/DL (>40); NON-HDL-C 159.7 MG/DL; POTASSIUM SERUM 3.8 MMOL/L (3.5-5.1); SODIUM LEVEL 139 MMOL/L (136-145); TOTAL PROTEIN 6.4 G/DL (5.7-8.2); TRIGLYCERIDES LEVEL 599 MG/DL (<150)
[2022-10-04 10:24] LABS: HEMOGLOBIN A1c 4.2 % (4.0-6.0)
[2022-10-06 19:07] LABS: TESTOSTERONE FREE (DIRECT) 14.7 pg/mL (6.8-21.5)
== END ==
LOC: M LAB 09:20
PROVIDERS: ATTEND Internal Medicine
DX: G47.00 Insomnia, unspecified (principal)

== ENCOUNTER → 2023-03-11 | Outpatient (CLI) | payer MEDICARE, OTHER ==
[~2023-03-11] MED LIST changes: +CLON-952 PO; -KLON2TAB PO; +LORA-1041 PO; -LORA-674 PO
== END ==
LOC: M OUTALCOH 08:53
PROVIDERS: ATTEND Psychiatry & Neurology Psychiatry
DX: F10.10 Alcohol abuse, uncomplicated (principal)

== ENCOUNTER → 2023-04-07 | Outpatient (RCR) | payer MEDICARE, MEDICAID | LOC: M OUTALCOH 03-18 09:34 | PROVIDERS: ATTEND Psychiatry & Neurology Psychiatry | DX: F10.20 Alcohol dependence, uncomplicated (principal); F11.20 Opioid dependence, uncomplicated; F17.200 Nicotine dependence, unspecified, uncomplicated ==

== ENCOUNTER 2023-05-05 16:00 | Outpatient (RCR) | payer MEDICARE, MEDICAID | END 2023-05-07 | LOC: M OUTALCOH 16:00 | PROVIDERS: ATTEND Psychiatry & Neurology Psychiatry | DX: F10.20 Alcohol dependence, uncomplicated (principal); F11.20 Opioid dependence, uncomplicated; F17.200 Nicotine dependence, unspecified, uncomplicated ==

== ENCOUNTER 2023-05-21 15:00 | Outpatient (RCR) | payer MEDICARE, MEDICAID | END 2023-06-07 | LOC: M OUTALCOH 15:00 | PROVIDERS: ATTEND Psychiatry & Neurology Psychiatry | DX: F10.20 Alcohol dependence, uncomplicated (principal); F17.200 Nicotine dependence, unspecified, uncomplicated; F11.20 Opioid dependence, uncomplicated ==

== ENCOUNTER 2023-07-27 13:28 | Outpatient (RCR) | payer MEDICARE, MEDICAID ==
[~2023-07-27 13:28] MED LIST changes: -KLON0.5T PO; +KLON0.5T8 PO
== END 2023-08-06 ==
LOC: M OUTALCOH 13:28
PROVIDERS: ATTEND Psychiatry & Neurology Psychiatry
DX: F10.20 Alcohol dependence, uncomplicated (principal); F11.20 Opioid dependence, uncomplicated; F17.200 Nicotine dependence, unspecified, uncomplicated

== ENCOUNTER 2023-08-29 04:18 | Emergency (ER) | payer MEDICARE, OTHER ==
[~2023-08-29] VITALS: Ht 172.7 cm; Wt 88.4 kg
[2023-08-29 04:35] VITALS: TEMP 97.9
[2023-08-29 05:09] LABS: BASO # 0.1 10^3/uL (0.0-0.2); BASO % 0.4 % (0.0-1.0); EOS # 0.2 10^3/uL (0.0-0.5); EOS % 1.3 % (0.0-3.0); HEMATOCRIT 46.3 % (42.0-52.0); HEMOGLOBIN 16.7 g/dl (13.5-17.5); LYMPH # 2.1 10^3/uL (1.5-5.0); LYMPH % 11.2 % (24.0-44.0); MEAN CORPUSCULAR HEMOGLOBIN 36.3 pg (27.0-33.0); MEAN CORPUSCULAR HGB CONC 36.1 g/dl (32.0-36.5); MEAN CORPUSCULAR VOLUME 100.7 fl (80.0-96.0); MONO # 0.8 10^3/uL (0.0-0.8); MONO % 4.5 % (2.0-8.0); NEUTROPHILS # 15.1 10^3/uL (1.5-8.5); NEUTROPHILS % 82.2 % (36.0-66.0); PLATELET COUNT, AUTOMATED 311 10^3/uL (150-450); WHITE BLOOD COUNT 18.3 10^3/uL (4.0-10.0)
[2023-08-29] MEDS: NS 1,000 ML IV ONE ×2 (05:10→06:27)
[2023-08-29] MEDS: ONDANSETRON 4MG 2ML VIAL IV ONE (05:11)
[2023-08-29] MEDS: PANTOPRAZOLE 40MG VIAL IV ONE (05:13)
[2023-08-29 05:25] LABS: INR 1.16; PARTIAL THROMBOPLASTIN TIME 29.5 SECONDS (24.8-34.2); PROTHROMBIN TIME 14.5 SECONDS (12.5-14.5)
[2023-08-29] MEDS ORDERED: ISOVUE-370 76% 100ML VIAL As Ordered ONE (05:28)
[2023-08-29 05:30] LABS: ETHYL ALCOHOL (ETHANOL) 0.004 % (0.000-0.010); LIPASE 46 U/L (12-53)
[2023-08-29 05:32] LABS: ALBUMIN 3.5 G/DL (3.2-5.2); ALKALINE PHOSPHATASE 80 U/L (46-116); ALT/SGPT 20 U/L (7.0-40); AST/SGOT 13 U/L (<34); BILIRUBIN,DIRECT 0.3 MG/DL (<0.4); BILIRUBIN,TOTAL 0.8 MG/DL (0.3-1.2); BLOOD UREA NITROGEN 17 MG/DL (9-23); CALCIUM LEVEL 9.1 MG/DL (8.5-10.1); CARBON DIOXIDE LEVEL 25 MMOL/L (20-31); CHLORIDE LEVEL 104 MMOL/L (98-107); CREATININE FOR GFR 1.02 MG/DL (0.70-1.30); GLOMERULAR FILTRATION RATE > 60.0 (>60); GLUCOSE, FASTING 245 MG/DL (60-100); SODIUM LEVEL 136 MMOL/L (136-145); TOTAL PROTEIN 6.1 G/DL (5.7-8.2)
[2023-08-29 06:03] LABS: CK-MB VALUE MASS 1.7 NG/ML (<3.6)
[2023-08-29 06:04] LABS: CPK CREATINE PHOSPHOKINASE 149 U/L (46-171); MB/CK RELATIVE INDEX 1.14 (< OR =4)
[2023-08-29] MEDS: SUCRALFATE 1 GM TAB PO ONE (07:35)
[2023-08-29] MEDS: FAMOTIDINE IV BAG 20 MG in IV 1 EA IV ONE (07:35)
[2023-08-29 07:44] LABS: BASO % 0.4 % (0.0-1.0); EOS # 0.1 10^3/uL (0.0-0.5); EOS % 0.4 % (0.0-3.0); HEMATOCRIT 33.1 % (42.0-52.0); LYMPH # 0.9 10^3/uL (1.5-5.0); LYMPH % 7.8 % (24.0-44.0); MEAN CORPUSCULAR HEMOGLOBIN 36.7 pg (27.0-33.0); MEAN CORPUSCULAR VOLUME 102.2 fl (80.0-96.0); MONO # 0.8 10^3/uL (0.0-0.8); MONO % 7.4 % (2.0-8.0); NEUTROPHILS # 9.4 10^3/uL (1.5-8.5); NEUTROPHILS % 83.6 % (36.0-66.0); RED BLOOD COUNT 3.24 10^6/uL (4.30-6.10); WHITE BLOOD COUNT 11.3 10^3/uL (4.0-10.0)
[2023-08-29 07:45] VITALS: BP 106/56
[2023-08-29 07:48] VITALS: O2SAT 95
[2023-08-29 08:08] LABS: HEMOGLOBIN 11.9 g/dl (13.5-17.5)
[2023-08-29 08:09] LABS: PLATELET COUNT, AUTOMATED 186 10^3/uL (150-450)
[2023-08-29] MEDS ORDERED: PROT1TAB2 PO (08:42)
[2023-08-29] MEDS ORDERED: CARA1TAB6 PO (08:42)
== END 2023-08-29 08:45 | disposition left against medical advice (07) ==
LOC: EDBD 04:18 → M ED 04:18
DX: K26.9 Duodenal ulcer, unspecified as acute or chronic, without hemorrhage or perforation (principal); K92.2 Gastrointestinal hemorrhage, unspecified; K29.80 Duodenitis without bleeding; I45.81 Long QT syndrome; I45.10 Unspecified right bundle-branch block; F31.9 Bipolar disorder, unspecified; F43.10 Post-traumatic stress disorder, unspecified; K21.9 Gastro-esophageal reflux disease without esophagitis; F90.9 Attention-deficit hyperactivity disorder, unspecified type; F17.200 Nicotine dependence, unspecified, uncomplicated; Z91.012 Allergy to eggs; Z91.048 Other nonmedicinal substance allergy status; Z79.83 Long term (current) use of bisphosphonates; Z79.810 Long term (current) use of selective estrogen receptor modulators (SERMs); Z79.899 Other long term (current) drug therapy; Z53.9 Procedure and treatment not carried out, unspecified reason
CPT/HCPCS: 71275; 74177; 80047; 80048; 80076; 82077; 82550; 82553; 83605; 83690; 84484; 85025; 85610; 85730; 86850; 86900; 86901; 87040; 87486; 87581; 87633; 87798; 93005; 96361; 96365; 96375; 99285; C9113; J2405; Q9967